=== PATIENT | female | born 1950 | race Caucasian/White ===

== ENCOUNTER 2019-01-08 01:02 | Emergency (ER) | payer MEDICARE ==
[~2019-01-08] VITALS: Ht 167.6 cm; Wt 78.5 kg
--- OUTSIDE RECORDS SUMMARY | ~2019-01-08 | XMS | Encounter Summary ---
Demographics + + + | Address | [address] | | | [place] [address] | + + + | Home Phone | | + + + | Preferred Language | Unknown | + + + | Marital Status | | + + + | Gnosticism Affiliation | NON | + + + | Race | White | + + + | Ethnic Group | Not or | + + + Author + + + | Author | [facility] | + + + | Organization | [facility] | + + + | Address | Unknown | + + + | Phone | Unavailable | + + + Support + + +---------+ + | Name | Relationship | Address | Phone | + + +---------+ + | Velma Trejo | ECON | Unknown | | + + +---------+ + Care Team Providers + +------+ + | Care Estimator Jewelry Name | Role | Phone | + +------+ + | Jaime Irizarry DO | PCP | Unavailable | + +------+ + Reason for Visit +--------+ + | Reason | Comments | +--------+ + | Other | care everywhere | +--------+ + Encounter Details +--------+ + + + + | Date | Type | Department | Care Team | Description | +--------+ + + + + | 09/26/ | Abstract | Rheumatology at | Unknown . | Other (care | | 2017 | | [facility] | | everywhere) | | | | [address] | | | | | | [place] Mailcode: | | | | | | [address] [facility] | | | | | | [place], | | | | | | [place] [address] | | | | | | [phone] | | | +--------+ + + + + Social History + +-------+ +--------+------+ | Tobacco Use | Types | Packs/Day | Years | Date | | | | | Used | | + +-------+ +--------+------+ | Never Smoker | | | | | + +-------+ +--------+------+ + +---+---+---+ | Smokeless Tobacco: | | | | | Never Used | | | | + +---+---+---+ + + +---------+ + | Alcohol Use | Drinks/Week | oz/Week | Comments | + + +---------+ + | No | | | | + + +---------+ + + + + | Sex Assigned at | Date Recorded | | | | + + + | Not on file | | + + + + + + + | Job Start Date | Occupation | Industry | + + + + | Not on file | Not on file | Not on file | + + + + + + + + | Travel History | Travel Start | Travel End | + + + + + + | No recent travel history available. | + + documented as of this encounter Plan of Treatment Not on filedocumented as of this encounter Visit Diagnoses Not on filedocumented in this encounter"
--- OUTSIDE RECORDS SUMMARY | ~2019-01-08 | XMS | Encounter Summary ---
Demographics + + + | Address | [address] | | | [place] [address] | + + + | Home Phone | | + + + | Preferred Language | Unknown | + + + | Marital Status | | + + + | Latter Day Affiliation | NON | + + + | Race | White | + + + | Ethnic Group | Not or | + + + Author + + + | Author | [facility] | + + + | Organization | [facility] | + + + | Address | Unknown | + + + | Phone | Unavailable | + + + Support + + +---------+ + | Name | Relationship | Address | Phone | + + +---------+ + | Velma Trejo | ECON | Unknown | | + + +---------+ + Care Team Providers + +------+ + | Care Certified Tumor Registrar Name | Role | Phone | + +------+ + PCP | Unavailable | + +------+ + Reason for Visit + + + | Reason | Comments | + + + | Anticoagulant | | | monitoring | | + + + Encounter Details +--------+---------+ + + + | Date | Type | Department | Care Team | Description | +--------+---------+ + + + | 04/09/ | Office | AntiCoagulation | Shelly Lucero, | Atrial Septal | | 2007 | Visit | Clinic [address] | SERVICE TECHNICIAN [address] | Aneurysm; Encounter | | | | [address] | [address] | for Long-Term | | | | Mailcode: [id number] | [place], [place] | (Current) Use of | | | | Outpatient Clinic | [address] | Anticoagulants | | | | [place] [address] | [phone] | | | | | [place], [place] | | | | | | [address] | | | | | | [phone] | | | +--------+---------+ + + + Social History + +-------+ +--------+------+ | Tobacco Use | Types | Packs/Day | Years | Date | | | | | Used | | + +-------+ +--------+------+ | Never Smoker | | | | | + +-------+ +--------+------+ + + +---------+ + | Alcohol Use [...] + + documented as of this encounter Last Filed Vital Signs + +---------+ + + | Vital Sign | Reading | Time Taken | Comments | + +---------+ + + | Blood Pressure | 90/62 | 04/09/2007 9:35 AM | | | | | PST | | + +---------+ + + | Pulse | - | - | | + +---------+ + + | Temperature | - | - | | + +---------+ + + | Respiratory Rate | - | - | | + +---------+ + + | Oxygen Saturation | - | - | | + +---------+ + + | Inhaled Oxygen | - | - | | | Concentration | | | | + +---------+ + + | Weight | - | - | | + +---------+ + + | Height | - | - | | + +---------+ + + | Body Mass Index | - | - | | + +---------+ + + documented in this encounter Patient Instructions Patient Instructions Mulu Pablo Np - 04/09/2007 10:05 AM PSTFormatting of this note migh t be different from the original. PROTHROMBIN TIME (INR), POC (no units) Date Value 04/09/07 1.9 DAILY WARFARIN DOSAGE INFORMATION: THEN: Sunday (mg): 5 Sunday (mg): 5 Sunday (mg): 5 (mg): 0 Sunday (mg): 0 Sunday (mg): 0 Sunday (mg): 0 Weekly Total (mg): 15 Your next appointment in the Anticoagulation Clinic is scheduled for 04/11/07. If you have any questions, medication changes, or bleeding, call the Anticoagulation Clinic at . For urgent problems after clinic hours, call your primary care provider . If your primary care provider is unavailable, call and ask the solution make up operator for the Water Main Installer Helper on-call. documented in this encounter Progress Notes Mulu Pablo Np - 04/09/2007 10:03 AM PSTMet with Sana Garcia in clinic for anticoagul ation monitoring. Anticoag focused exam assessed and negative except as noted on documentation flowsheet. PATIENT COUNSELING AND EDUCATION REGARDING: Importance of taking prescribed dosage Importance of regular monitoring Importance of notifying clinic of health status change(s) Medications to avoid (ASA, NSAIDs, OTCs, botanicals, acetaminophen precautions) Factors influencing, anticoagulation: (diet, ETOH, activity, health, OTCs, herbs) Reporting medication changes Reporting signs of bleeding Reporting weight changes ASSESSMENT AND PLAN: Subtherapeutic - needs dose adjustment: Weekly warfarin dose as ordered. Needs further ant icoag follow up: Next visit with lab test: in 2 days on 04/11/07 at 8:00am. documented in this encou nter Plan of Treatment Not on filedocumented as of this encounter Procedures + +--------+ + + + | Procedure Name | Priori | Date/Time | Associated Diagnosis | Comments | | | ty | | | | + +--------+ + + + | INR (PT), POC | Routin | 04/09/2007 | Atrial Septal | Results for this | | | e | 10:02 AM | Aneurysm Encounter | procedure are in the | | | | PST | for Long-Term | results section. | | | | | (Current) Use of | | | | | | Anticoagulants | | + +--------+ + + + documented in this encounter Results INR (PT), POC (04/09/2007 10:02 AM PST) + +-------+ + + + | Component | Value | Ref Range | Performed | Pathologist | | | | | At | Signature | + +-------+ + + + | PROTHROMBIN | 1.9 | | [facility] | | | TIME | | | OF CARE | | | (INR), POC | | | TESTS | | + +-------+ + + + + + | Specimen | + + | Blood | + + + + + + + | Performing | Address | City/State/Zipcode | Phone Number | | Organization | | | | + + + + + | [facility] | [address] | [place], [place] | | | [facility] | [address] | [address] | | | TESTS | | | | + + + + + | [facility] | [address] | [place], [place] | | | TESTS | [facility] | [address] | | + + + + + documented in this encounter Visit Diagnoses + + | Diagnosis | + + | Atrial septal aneurysm Aneurysm of heart (wall) | + + | intermediate (current) use of anticoagulants Long-term (current) use of anticoagulants | + + documented in this encounter"
--- OUTSIDE RECORDS SUMMARY | ~2019-01-08 | XMS | Encounter Summary ---
Demographics + + + | Address | [address] | | | [place] [address] | + + + | Home Phone | | + + + | Preferred Language | Unknown | + + + | Marital Status | | + + + | Adventist Affiliation | NON | + + + | Race | White | + + + | Ethnic Group | Not or | + + + Author + + + | Author | [facility] | + + + | Organization | [facility] | + + + | Address | Unknown | + + + | Phone | Unavailable | + + + Support + + +---------+ + | Name | Relationship | Address | Phone | + + +---------+ + | Velma Trejo | ECON | Unknown | | + + +---------+ + Care Team Providers + +------+ + | Care Street Cleaner Name | Role | Phone | + +------+ + | Jaime Irizarry DO | PCP | Unavailable | + +------+ + Encounter Details +--------+ + + + + | Date | Type | Department | Care Team | Description | +--------+ + + + + | 09/24/ | Abstract | Cardiology [facility] at | [place] | | | 2011 | | [facility] [address] | [address] | | | | | [place] Mailcode: [address] | Road [place], [place] | | | | | [facility] | [address] | | | | | and Healing, | | | | | | | | | | | | [place], [place] | | | | | | [address] | | | | | | [phone] | | | +--------+ + + + [...]
--- OUTSIDE RECORDS SUMMARY | ~2019-01-08 | XMS | Encounter Summary ---
Demographics + + + | Address | [address] | | | [place] [address] | + + + | Home Phone | | + + + | Preferred Language | Unknown | + + + | Marital Status | | + + + | Nondenominational Affiliation | NON | + + + | Race | White | + + + | Ethnic Group | Not or | + + + Author + + + | Author | [facility] | + + + | Organization | [facility] | + + + | Address | Unknown | + + + | Phone | Unavailable | + + + Support + + +---------+ + | Name | Relationship | Address | Phone | + + +---------+ + | Velma Trejo | ECON | Unknown | | + + +---------+ + Care Team Providers + +------+ + | Care Appliance Parts Counter Clerk Name | Role | Phone | + +------+ + | Henry Velazquez | PCP | Unavailable | + +------+ + Reason for Visit + + + | Reason | Comments | + + + | Return Patient | | + + + Encounter Details +--------+---------+ + + + | Date | Type | Department | Care Team | Description | +--------+---------+ + + + | 09/15/ | Office | Neurology at | Angelina Acosta MD | Restless Legs | | 2007 | Visit | [facility] & | [address] | Syndrome; | | | | Healing [address] | [place], [place] | Parkinsonism (HCC) | | | | [address] Mailcode: | [id number] | | | | | [facility] | [phone] | | | | | Health and Healing, | | | | | | [facility] | | | | | | [place], [place] | | | | | | [address] | | | | | | [phone] | | | +--------+---------+ + + + [...] this encounter Last Filed Vital Signs + + + + + | Vital Sign | Reading | Time Taken | Comments | + + + + + | Blood Pressure | 136/75 | 09/16/2007 2:27 PM | | | | | PDT | | + + + + + | Pulse | 70 | 09/16/2007 2:27 PM | | | | | PDT | | + + + + + | Temperature | - | - | | + + + + + | Respiratory Rate | - | - | | + + + + + | Oxygen Saturation | - | - | | + + + + + | Inhaled Oxygen | - | - | | | Concentration | | | | + + + + + | Weight | 88.9 kg (196 lb) | 09/16/2007 2:27 PM | | | | | PDT | | + + + + + | Height | 170.2 cm (5' 7") | 09/16/2007 2:27 PM | | | | | PDT | | + + + + + | Body Mass Index | 30.7 | 09/16/2007 2:27 PM | | | | | PDT | | + + + + + documented in this encounter Progress Notes Angelina Centeno - 09/15/2007 7:53 PM PDTCC: Tremor and parkinsonism. HPI: 57 yo RH woman with tremor in left hand and complaints of slowness in getting dressed. Has had some trouble with sciatica that is being treated primarily with physical therapy is primarily on the right leg feels like knife in the leg. Off all antipsych medications an d is psychiatrically stable, mood is good. States today that she has pains in her legs at n ight better with movements - take quinine and vicodin for it. Thinking is good. Speed is g ood, walking is normal. Balance is a little off she is doing some exercises for. Had a lef t putaminal hemorrhage found and an atrial septal aneurysm. She is on coumadin. She had so me problems with nausea on Sinemet. Stopped Seroquel around May of 2006 and stopped Jesenia lify for a couple months was back on then stopped again with no clear change in her symptoms . Has been off of antipsychotics for a few months and feels like she is having less ean onism and less tremor without change in medications. ROS: denies bowel problems denies urinary problems - has to push occasionally when urinates since on lyrica denies sleep problems Memory is almost normal denies hallucinations denies depression Swallowing well No tremors - except very occasional in the left hand Denies problems with sense of smell No real nausea Interval Medical History: Sciatica Started on lyrica for fibromyalgia From Previous Visit: PMHx: Stroke in 10/2006 - loss of vision in left lower quadrant bilaterally Bipolar disorder Fibromyalgia High Cholesterol High Blood Pressure Arthritis Head Aches PSHx: Hysterectomy and oopharectomy - 1998 - fibroids Tubulat ligation - 1972 Tonsilectomy - in high school Social History: The pt denies etoh, tob, illicit drug use. Was heavy drinker many years ago. 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 The pt's highest level of education is some college FamHx: Aunt had PD Father at 62 yo from alcoholic, malignant brain tumor, HTN, heart problems Mother had mental problems, patient did not know her well Siblings medical history is significant for metal problems also Children are healthy Medication: Current outpatient prescriptions : Amlodipine-Benazepril 5-20 mg Oral Capsule, take 1 capsu le by oral route once daily, Disp: , Rfl: Carbidopa 25 mg Oral Tablet, take one with each dose of sinemet, Disp: 90, Rfl: 11 Carbidopa-Levodopa (SINEMET) 25-100 mg Oral Tablet, gradually titirate up to 1 tablet by o ral route 3 times per day, Disp: 90, Rfl: 11 Clonazepam 0.5 mg Oral Tablet, take on tablet twice daily, Disp: , Rfl: hydrochlorothiazide 50 mg Oral Tablet, 1/2 tab po 1 times daily (25 mg dose), Disp: , Rfl: hydrocodone-acetaminophen (VICODIN) 5-500 mg Oral Tablet, 1 tab po at bedtime for restless/ cramping legs, Disp: , Rfl: KLOR-CON M20 ORAL, 1 tab daily, Disp: , Rfl: Metoprolol Succinate (TOPROL XL) 200 mg Oral Tablet Sustained Release 24 hr, take 1 tablet (200 mg) by oral route once daily, Disp: , Rfl: Niacin (Antihyperlipidemic) (NIASPAN) 500 mg Oral Tablet Sustained Release, take 1 tablet ( 500 mg) by oral route twice daily , Disp: , Rfl: PHENERGAN OR, 1 tab po 1/2 hour before morning meds., Disp: , Rfl: pregabalin (LYRICA) 150 mg Oral Capsule, take 3 pills, 2 times per day, Disp: , Rfl: quinine (QUALAQUIN) 324 mg Oral Capsule, 1 tab po nightly, Disp: , Rfl: Sennosides 8.6 mg Oral Tablet, take one tablet twice daily, Disp: , Rfl: warfarin 2 mg Oral Tablet, 2 tabs po daily (4 mg total), Disp: , Rfl: PE: Vitals: BP 136/75, Pulse 70, Ht 170.2 cm (5' 7")( < 3 %ile), Wt 88.905 kg (196 lbs)( < 3 %ile). GA: awake, alert, very masked facies and slow, NAD. MS: answers questions appropriately, draws clock well, speech is a little slow and slightly monotone CN: face symmetric, mildly masked face Motor: 5/5 throughout,normal tone Reflexes: 2+ throughout, Coor: KRISTI are normal Gait: mild reduced arm swing on the left and slight tremor of left hand when ambulates A/P: 57 yo women with parkinsonism. Differential is drug induced versus idiopathic Ean on's Disease. She feels she is much better recently since being off her antipsychotics for a couple of months. 1. Check iron and ferritin because of restless leg. 2. Taper off Sinemet gradually, restart if symptoms worsen. 3. F/u in 3 months by phone sooner if needed. Over 20 minutes was spent with the patient and more then half the time was in counseling an d discussion about her medical diagnosis and treatment. documented in this encou nter Plan of Treatment Not on filedocumented as of this encounter Results IRON AND TIBC, SERUM (09/16/2007 3:27 PM PDT) + +--------+ + + + | Component | Value | Ref Range | Performed | Pathologist | | | | | At | Signature | + +--------+ + + + | IRON SERUM | 46 | 40 - 150 ug/dL | | | + +--------+ + + + | IRON BIND | 280 | 225 - 410 ug/dL | | | | CAP SERUM | | | | | + +--------+ + + + | % | 16 (L) | 20 - 50 % | | | | SATURATION | | | | | | TRANSFERRIN | | | | | | , SERUM | | | | | + +--------+ + + + + + | Specimen | + + | Blood - Blood | + + + + + | Narrative | Performed At | + + + | Iron and TIBC, Serum Test performed by [facility] | | | [facility]. | | + + + + + + + + | Performing | Address | City/State/Zipcode | Phone Number | | Organization | | | | + + + + + | [facility] | [address] | [place] [address] | | | LABORATORY | | | | + + + + + FERRITIN, SERUM (09/16/2007 3:27 PM PDT) + +-------+ + + + | Component | Value | Ref Range | Performed | Pathologist | | | | | At | Signature | + +-------+ + + + | FERRITIN | 121 | 11 - 307 ng/mL | | | + +-------+ + + + + + | Specimen | + + | Blood - Blood | + + + + + | Narrative | Performed At | + + + | Reference Range change effective 01/21/07 | | | [facility] | | | [facility] [address] | | | [place] [address] | | + + + + + + + + | Performing | Address | City/State/Zipcode | Phone Number | | Organization | | | | + + + + + | [facility] | [address] | [place] [address] | | | LABORATORY | | | | + + + + + documented in this encounter Visit Diagnoses + + | Diagnosis | + + | Restless legs syndrome Restless legs syndrome (RLS) | + + | Parkinsonism (HCC) Paralysis agitans | + + documented in this encounter
--- OUTSIDE RECORDS SUMMARY | ~2019-01-08 | XMS | Encounter Summary ---
Demographics + + + | Address | [address] | | | [place] [address] | + + + | Home Phone | | + + + | Preferred Language | Unknown | + + + | Marital Status | | + + + | Church Affiliation | NON | + + + | Race | White | + + + | Ethnic Group | Not or | + + + Author + + + | Author | [facility] | + + + | Organization | [facility] | + + + | Address | Unknown | + + + | Phone | Unavailable | + + + Support + + +---------+ + | Name | Relationship | Address | Phone | + + +---------+ + | Velma Trejo | ECON | Unknown | | + + +---------+ + Care Team Providers + +------+ + | Care Script Reader Name | Role | Phone | + +------+ + | Jaime Irizarry DO | PCP | Unavailable | + +------+ + Encounter Details +--------+ + + + + | Date | Type | Department | Care Team | Description | +--------+ + + + + | 04/01/ | Results | LAB REFERRED TESTS | Other, Faculty | | | 2006 | Only | [address] [facility] | [phone] | | | | | [address] | | | | | | [place], [place] | | | | | | [address] | | | +--------+ + + + + Social History + +-------+ +--------+------+ | Tobacco Use | Types | Packs/Day | Years | Date | | | | | Used | | + +-------+ +--------+------+ | Never Assessed | | | | | + +-------+ +--------+------+ + + + | Sex Assigned at [...] | + +--------+ + + + | EJECTION FRACTION | Routin | 04/01/2007 | | Results for this | | | e | 2:13 PM | | procedure are in the | | | | PST | | results section. | + +--------+ + + + documented in this encounter Results EJECTION FRACTION (04/01/2007 2:13 PM PST) + + + + + + | Component | Value | Ref Range | Performed | Pathologist | | | | | At | Signature | + + + + + + | EJECTION | 60 - 65%Comment: EF | | [facility] | | | FRACTION | Recorded from | | OF | | | | Transthoracic | | CARDIOLOGY | | | | Echocardiogram | | | | + + + + + + + + | Specimen | + + | | + + + + + + + | Performing | Address | City/State/Zipcode | Phone Number | | Organization | | | | + + + + + | [facility] | [address] | [place], [place] | | | CARDIOLOGY | [address] | [address] | | + + + + + | [facility] | [address] | [place], [place] | | | CARDIOLOGY | [address] [facility] | [address] | | + + + + + documented in this encounter Visit Diagnoses Not on filedocumented in this encounter"
--- OUTSIDE RECORDS SUMMARY | ~2019-01-08 | XMS | Encounter Summary ---
Demographics + + + | Address | [address] | | | [place] [address] | + + + | Home Phone | | + + + | Preferred Language | Unknown | + + + | Marital Status | | + + + | Mu-Ism Affiliation | NON | + + + | Race | White | + + + | Ethnic Group | Not or | + + + Author + + + | Author | [facility] | + + + | Organization | [facility] | + + + | Address | Unknown | + + + | Phone | Unavailable | + + + Support + + +---------+ + | Name | Relationship | Address | Phone | + + +---------+ + | Velma Trejo | ECON | Unknown | | + + +---------+ + Care Team Providers + +------+ + | Care Street Light Cleaner Name | Role | Phone | + +------+ + | Jaime Irizarry DO | PCP | Unavailable | + +------+ + Reason for Referral Consultation (Routine) +--------+--------+ + + + + | Status | Reason | Specialty | Diagnoses / | Referred By | Referred To | | | | | Procedures | Contact | Contact | +--------+--------+ + + + + | Closed | | Neurology | Diagnoses | Car [facility] | Colin Stroke | | | | | PFO (patent | [address] | | | | | foramen | [address] | Fritz Peng | | | | | isra) | Mailcode: | [address] | | | | | Procedures | [facility] | Mailcode: | | | | | CONSULT TO | for Health | [id number] | | | | | NEUROLOGY | and Healing, | [address] | | | | | | [address], | Research | | | | | | 9th Floor | [address] | | | | | | [place], [place] | floor | | | | | | [address] | [place], [place] | | | | | | Phone: | [phone] | | | | | | [phone] | Phone: | | | | | | Fax: | [phone] | | | | | | [phone] | Fax: | | | | | | | [phone] | +--------+--------+ + + + + Reason for Visit Consultation (Routine) +--------+--------+ + + + + | Status | Reason | Specialty | Diagnoses / | Referred By | Referred To | | | | | Procedures | Contact | Contact | +--------+--------+ + + + + | Closed | | Cardiology | Diagnoses | No | [facility] | | | | | ASD (atrial | Referring | [address] | | | | | septal | Provider Per | [address] | | | | | defect) | Patient NO | Mailcode: | | | | | Procedures | REFERRING | [facility] | | | | | CONSULT TO | PROVIDER PER | for Health | | | | | CARDIOLOGY | PT | and Healing, | | | | | | | [address], | | | | | | | 9th Floor | | | | | | | [place], [place] | | | | | | | [address] | | | | | | | Phone: | | | | | | | [phone] | | | | | | | Fax: | | | | | | | [phone] | +--------+--------+ + + + + Encounter Details +--------+---------+ + + + | Date | Type | Department | Care Team | Description | +--------+---------+ + + + | 11/06/ | Office | Cardiology [facility] at | [address] | PFO (patent foramen | | 2011 | Visit | [facility] [address] | [facility] | isra) (Primary Dx) | | | | Ave Mailcode: [facility] | Road [place], [place] | | | | | [facility] | [address] | | | | | and Healing, | | | | | | | | | | | | [place], [place] | | | | | | [address] | | | | | | [phone] | | | +--------+---------+ + + + [...] + + + | Blood Pressure | 130/80 | 11/07/2011 10:20 AM | | | | | PDT | | + + + + + | Pulse | 57 | 11/07/2011 10:20 AM | | | | | PDT | | + + + + + | Temperature | 36.4 C (97.5 F) | 11/07/2011 10:20 AM | | | | | PDT | | + + + + + | Respiratory Rate | - | - | | + + + + + | Oxygen Saturation | 97% | 11/07/2011 10:20 AM | | | | | PDT | | + + + + + | Inhaled Oxygen | - | - | | | Concentration | | | | + + + + + | Weight | 81 kg (178 lb 9.6 | 11/07/2011 10:20 AM | | | | oz) | PDT | | + + + + + | Height | 168.3 cm (5' 6.25") | 11/07/2011 10:20 AM | | | | | PDT | | + + + + + | Body Mass Index | 28.61 | 11/07/2011 10:20 AM | | | | | PDT | | + + + + + documented in this encounter Patient Instructions Patient Instructions Trini Mcdowell MD - 11/07/2011 11:11 AM PDTIt was nice to meet you today in clinic. Here are the recommendations that we discussed: 1. Recommend that you continue the warfarin. 2. Consider seeing a neurologist to discuss treatment options in regards to anticoagulatio n. 3. Return to clinic as needed. 1 1:13 AM PDT documented in this encounter Progress Notes Trini Mcdowell MD - 11/07/2011 10:29 AM PDTFormatting of this note might be different fr om the original. INITIAL ADULT CONGENITAL CARDIOLOGY CONSULT NOTE Author: TRINI MCDOWELL MD Attending Physician: Tom Valerio MD PCP: Jaime Irizarry DO HPI: Sana Garcia is a 61 y.o. woman with a PMH of Fibromyalgia, Migraines, Stroke, HTN, HLD, who presents with Here for evaluation of hole in her heart. She would like to get off [employer] franck if there is another way. First stroke was in 10/2006. Symptoms at the time vision davis ges, slurred speech. Residual deficits vision problems. She has a larger blind spot. No s peech problems. No weakness. She then was on aggrenox and represented in 03/2007 with facia l droop and found to have PFO/ASD. She was switched to warfarin at that time. No more stro kes since then. Warfarin since then. Tolerated the warfarin ok. No major bleeding or clotting events since being on the warfari n. No chest pain, SOB, syncope, lightheadedness, orthopnea, PND, palpitations, VANESSA, weight gai n. Exercises 2-3 times per week, workouts with free weights and walking. No chest pain or SOB with that. No changes in exercise tolerance. Improving her strength and tolerance. Past Medical History Diagnosis Date Arthropathy, unspecified, site unspecified Other persistent mental disorders due to conditions classified elsewhere Depressive disorder, not elsewhere classified Headache Pure hypercholesterolemia Unspecified essential hypertension Symptomatic menopausal or female climacteric states Other convulsions Acute, but ill-defined, cerebrovascular disease Anxiety PD (Parkinson's disease) Hypokinesia Review of Systems: All other ROS negative except as mentioned in HPI. Current Outpatient Prescriptions on File Prior to Visit Medication Sig Dispense Refill Amlodipine-Benazepril 5-20 mg Oral Capsule take 1 capsule by oral route once daily Metoprolol Succinate (TOPROL XL) 200 mg Oral Tablet Sustained Release 24 hr take 1 tabl et (200 mg) by oral route once daily Niacin (Antihyperlipidemic) (NIASPAN) 500 mg Oral Tablet Sustained Release take 1 table t (500 mg) by oral route twice daily Allergies Allergen Reactions Demerol (Meperidine (Pf)) Codeine Med list and allergies reviewed with patient and/or family. Social Hx: History Social History Marital Status: Spouse Name: N/A Number of Children: N/A Years of Education: N/A Social History Main Topics Smoking status: Never Smoker Smokeless tobacco: Never Used Alcohol Use: No Drug Use: No Sexually Active: Not on file Other Topics Concern Not on file Social History Narrative No narrative on file Family Hx: Family History Problem Relation Stroke Father Cancer Father brain, age 62 Coronary Artery Disease Father CABG Cancer Aunt brain Coronary Artery Disease Aunt [place] in her 80s Physical Exam: BP 130/80 | Pulse 57 | Temp (Src) 36.4 C (97.5 F) (Oral) | Ht 1.683 m (5' 6.25") | Wt 8 1.012 kg (178 lb 9.6 oz) | SpO2 97% | BMI 28.61 kg/(m^2) General Appearance: alert, oriented X 3, no distress HEENT: PERRLA, EOMI, sclera anicteric, MM moist Neck: JVP not elevated, Respiratory: CTA bilateral Cardiovascular: regular rate & rhythm with 1/6 systolic murmur over RUSB, no r/g Gastrointestinal: soft, nt, nd, bs +, Extremities: wwp, negative edema, negative clubbing, distal pulses intact Musculoskeletal: RIDLEY, Skin: negative rash, negative erythema Neurologic: grossly intact, vision deficits. Data: Lab Results Component Value Date NA 139 04/02/2007 K 3.6 04/02/2007 CL 111 04/02/2007 BICARB 24 04/02/2007 BUN 10 04/02/2007 CR 1.0 04/02/2007 GLU 104 04/02/2007 CA 9.5 04/02/2007 Lab Results Component Value Date WBC 8.0 04/02/2007 HB 11.5 04/02/2007 HCT 32.3 04/02/2007 PLT 308 04/02/2007 MCV 92.0 04/02/2007 RDW 13.0 04/02/2007 CXR: CXR * 03/31/2007 Value: Radiologist 1: TYESHA NIETO M.D.-Radiologist 2: ALEKS CARMEN M.D. EXAM: AP chest HISTORY: Evaluate for pneumonia COMPARISON: None FINDINGS: There is minimal lef t basilar atelectasis, otherwise the lungs are clear. No pneumothorax, pulmonary edema, or pleural effusion. The cardiac silhouette is within normal limits. The osseous structures a re intact. IMPRESSION: Minimal left lower lung zone atelectasis, otherwise clear lungs. Echocardiogram Final Impressions: 1. The left ventricular cavity size is normal. 2. The LV systolic function is normal. 3. With IV saline contrast injection, a small right to left shunt is present at baseline th at increases significantly with a Valsalva maneuver consistent with a PFO or small ASD. Cardiac Rhythm: Normal sinus rhythm. Left Ventricle: The left ventricular cavity size is normal. Visually estimated left ventric ular ejection fraction is 60 - 65%. The LV systolic function is normal. Atria:The left and right atria are normal in size. Right Ventricle:Right ventricular size, thickness and function are normal. Aortic Valve: The aortic valve is mildly sclerotic. Mitral Valve: The mitral valve is structurally normal. EC - NSR, LVH, nonspecific ST changes Assessment and Plan: Sana Garcia is a 61 y.o. woman with a PMH of Fibromyalgia, Migraines, Stroke, HTN, HLD, who presents for evaluation of her PFO/ASD. She is here because she wants to try to come o ff the warfarin. Per current data, there is no data to support that closing her PFO/ASD wou ld decrease the risk of stroke or allow her to stop the warfarin. The etiology of the strok e is unclear so it may be unrelated. However she did have a second event on aggrenox so wou ld recommend continuing warfarin given probable failure on aggrenox. She also does not have any evidence of right heart enlargement or right heart failure to suggest a hemodynamically significant shunt. At this time would recommend continuing warfarin and we would not recom mend closing her PFO/ASD at this time. -neurology referral for discussion of anticoagulation management -continue warfarin for now This patient was staffed with my attending Dr. Valerio, who agrees with the above assessmen t and plan. Trini Mcdowell MD [place] [place] [address] [id number] Cardiology Attending Staff I saw patient with Dr. Hernandes and also Mrs Garcia's daughter, Velma. Her question is whe ther closing her ASD/PFO would enable her to stop taking the warfarin. She is concerned abo ut bleeding with trauma, and also she had lap cholecystectomy recently and her physician for got to stop the warfarin so she urgently received clotting factors. This frightened her. S he has not had any bleeding with the warfarin and her INR is very stable. I told her that I did not think closing the ASD/PFO would allow her to stop the warfarin as there is no evide nce that closing the PFO reduces her risk of stroke. There is no hemodynamic reason to cons ider closing the PFO (no right heart enlargement). As to whether warfarin is an appropriate medication for her at this time, I would defer to neurology (stroke) for their opinion. It seems reasonable to me, but I would defer to their expertise. We discussed alternative therapy with dabigatran, but that doesn't seem to prov ananth any advantage and has the disadvantage of hot being able to reverse quickly. She is comfortable with our advice and will set up an appointment to see neurology for thei r recommendation about whether it is appropriate to continue the warfarin. TOM VALERIO MD CARDIOLOGY - [facility] [address] Mailcode: [address] [facility], [address] [facility] [id number] documented in this en counter Plan of Treatment Not on filedocumented as of this encounter Visit Diagnoses + + | Diagnosis | + + | PFO (patent foramen ovale) - Primary Ostium secundum type atrial septal defect | + + documented in this encounter
--- OUTSIDE RECORDS SUMMARY | ~2019-01-08 | XMS | Encounter Summary ---
Demographics + + + | Address | [address] | | | [place] [address] | + + + | Home Phone | | + + + | Preferred Language | Unknown | + + + | Marital Status | | + + + | Moravian Affiliation | NON | + + + | Race | White | + + + | Ethnic Group | Not or | + + + Author + + + | Author | [facility] | + + + | Organization | [facility] | + + + | Address | Unknown | + + + | Phone | Unavailable | + + + Support + + +---------+ + | Name | Relationship | Address | Phone | + + +---------+ + | Velma Trejo | ECON | Unknown | | + + +---------+ + Care Team Providers + +------+ + | Care Dietitian Therapeutic Name | Role | Phone | + +------+ + | Jaime Irizarry DO | PCP | Unavailable | + +------+ + Encounter Details +--------+ + + + + | Date | Type | Department | Care Team | Description | +--------+ + + + + | 03/31/ | Hospital | Registration 3181 | Jomar Rodriguez, | | | 2006 | Activity | [address] | [address] | | | | | [place] Mailcode: [id number] | [place], [place] | | | | | [place], [place] | [address] | | | | | [address] | [phone] | | | | | [phone] | | | +--------+ + + + [...] as of this encounter Plan of Treatment + +---------+--------+ + + | Name | Type | Priori | Associated Diagnoses | Date/Time | | | | ty | | | + +---------+--------+ + + | MRA NECK WO CONTRAST | Imaging | Priori | | 03/31/2007 10:32 PM | | | | ty | | PST | + +---------+--------+ + + | TRANSTHORACIC | ECG | Routin | | 04/01/2007 8:34 AM | | ECHOCARDIOGRAM, | | e | | PST | | ADULT | | | | | + +---------+--------+ + + documented as of this encounter Procedures + +--------+ + + + | Procedure Name | Priori | Date/Time | Associated Diagnosis | Comments | | | ty | | | | + +--------+ + + + | BASIC METABOLIC SET | Routin | 04/02/2007 | | Results for this | | (NA, K, CL, TCO2, | e | 8:13 AM | | procedure are in the | | BUN, CR, GLU, CA) | | PST | | results section. | + +--------+ + + + | CBC ONLY | Routin | 04/02/2007 | | Results for this | | | e | 8:13 AM | | procedure are in the | | | | PST | | results section. | + +--------+ + + + | FREE T4 | Routin | 04/02/2007 | | Results for this | | | e | 8:13 AM | | procedure are in the | | | | PST | | results section. | + +--------+ + + + | MRA BRAIN WO | Priori | 04/01/2007 | | Results for this | | CONTRAST | ty | 9:52 PM | | procedure are in the | | | | PST | | results section. | + +--------+ + + + | MRI BRAIN WO | Priori | 04/01/2007 | | Results for this | | CONTRAST | ty | 9:52 PM | | procedure are in the | | | | PST | | results section. | + +--------+ + + + | MRA NECK WWO | Priori | 04/01/2007 | | Results for this | | CONTRAST | ty | 9:51 PM | | procedure are in the | | | | PST | | results section. | + +--------+ + + + | LIVER SET | Routin | 04/01/2007 | | Results for this | | (AST,ALT,BILI | e | 7:00 AM | | procedure are in the | | TOTAL,BILI | | PST | | results section. | | DIRECT,ALK | | | | | | PHOS,ALB,PROT TOTAL) | | | | | + +--------+ + + + | RENAL FUNCTION SET | Routin | 04/01/2007 | | Results for this | | (NA,K,CL,CO2,BUN,CRE | e | 7:00 AM | | procedure are in the | | AT,GLUC,CA,PHOS,ALB | | PST | | results section. | | ) | | | | | + +--------+ + + + | CBC ONLY | Routin | 04/01/2007 | | Results for this | | | e | 7:00 AM | | procedure are in the | | | | PST | | results section. | + +--------+ + + + | TSH | Routin | 04/01/2007 | | Results for this | | | e | 7:00 AM | | procedure are in the | | | | PST | | results section. | + +--------+ + + + | MAGNESIUM, PLASMA | Routin | 04/01/2007 | | Results for this | | | e | 7:00 AM | | procedure are in the | | | | PST | | results section. | + +--------+ + + + | BENITO JEAN ONLY | Routin | 03/31/2007 | | Results for this | | | e | 10:45 PM | | procedure are in the | | | | PST | | results section. | + +--------+ + + + | URINE, MICROSCOPIC | Routin | 03/31/2007 | | Results for this | | EXAM | e | 10:45 PM | | procedure are in the | | | | PST | | results section. | + +--------+ + + + | RENAL FUNCTION SET | Routin | 03/31/2007 | | Results for this | | (NA,K,CL,CO2,BUN,CRE | e | 9:40 PM | | procedure are in the | | AT,GLUC,CA,PHOS,ALB | | PST | | results section. | | ) | | | | | + +--------+ + + + | CBC ONLY | Routin | 03/31/2007 | | Results for this | | | e | 9:40 PM | | procedure are in the | | | | PST | | results section. | + +--------+ + + + | MAGNESIUM, PLASMA | Routin | 03/31/2007 | | Results for this | | | e | 9:40 PM | | procedure are in the | | | | PST | | results section. | + +--------+ + + + | LITHIUM, SERUM | Routin | 03/31/2007 | | Results for this | | | e | 9:40 PM | | procedure are in the | | | | PST | | results section. | + +--------+ + + + | X-RAY CHEST 1 VIEW | Urgent | 03/31/2007 | | Results for this | | | | 9:35 PM | | procedure are in the | | | | PST | | results section. | + +--------+ + + + | CULTURE, URINE BACTI | Routin | 03/31/2007 | | Results for this | | | e | 2:44 PM | | procedure are in the | | | | PST | | results section. | + +--------+ + + + | TROPONIN I, PLASMA | Urgent | 03/31/2007 | | Results for this | | | | 1:54 PM | | procedure are in the | | | | PST | | results section. | + +--------+ + + + | COMPLETE METABOLIC | Urgent | 03/31/2007 | | Results for this | | SET | | 1:54 PM | | procedure are in the | | (NA,K,CL,CO2,BUN,CRE | | PST | | results section. | | AT,GLUC,CA,AST,ALT,B | | | | | | VICKIE TOTAL,ALK | | | | | | PHOS,ALB,PROT TOTAL) | | | | | + +--------+ + + + | UA, DIPSTICK ONLY | Urgent | 03/31/2007 | | Results for this | | | | 1:54 PM | | procedure are in the | | | | PST | | results section. | + +--------+ + + + | URINE, MICROSCOPIC | Urgent | 03/31/2007 | | Results for this | | EXAM | | 1:54 PM | | procedure are in the | | | | PST | | results section. | + +--------+ + + + | CBC ONLY | Urgent | 03/31/2007 | | Results for this | | | | 1:54 PM | | procedure are in the | | | | PST | | results section. | + +--------+ + + + | COAGULOPATHY PANEL | Urgent | 03/31/2007 | | Results for this | | (INR,APTT,FIBRINOGEN | | 1:54 PM | | procedure are in the | | ) | | PST | | results section. | + +--------+ + + + | LITHIUM, SERUM | Urgent | 03/31/2007 | | Results for this | | | | 1:54 PM | | procedure are in the | | | | PST | | results section. | + +--------+ + + + | 12 LEAD ECG | Routin | 03/31/2007 | | Results for this | | | e | 1:33 PM | | procedure are in the | | | | PST | | results section. | + +--------+ + + + | CT HEAD WO CONTRAST | Urgent | 03/31/2007 | | Results for this | | | | 1:20 PM | | procedure are in the | | | | PST | | results section. | + +--------+ + + + documented in this encounter Results CBC ONLY WITH PLATELET (04/02/2007 8:13 AM PST) + + + + + + | Component | Value | Ref Range | Performed | Pathologist | | | | | At | Signature | + + + + + + | WHITE CELL | 8.0 | 4.4 - 11.0 K/cu | [facility] | | | COUNT | | mm | DEPARTMENT | | | | | | OF | | | | | | PATHOLOGY | | + + + + + + | RED CELL | 3.51 (L) | 4.00 - 5.20 | [facility] | | | COUNT | | M/cu mm | DEPARTMENT | | | | | | OF | | | | | | PATHOLOGY | | + + + + + + | HEMOGLOBIN | 11.5 (L) | 12.0 - 16.0 | [facility] | | | | | g/dL | DEPARTMENT | | | | | | OF | | | | | | PATHOLOGY | | + + + + + + | HEMATOCRIT | 32.3 (L) | 36.0 - 46.0 % | [facility] | | | | | | DEPARTMENT | | | | | | OF | | | | | | PATHOLOGY | | + + + + + + | MCV | 92.0 | 80.0 - 96.0 fL | [facility] | | | | | | DEPARTMENT | | | | | | OF | | | | | | PATHOLOGY | | + + + + + + | MCHC | 35.5 | 33.4 - 35.5 | [facility] | | | | | g/dL | DEPARTMENT | | | | | | OF | | | | | | PATHOLOGY | | + + + + + + | RDW | 13.0 | 11.5 - 15.0 % | [facility] | | | | | | DEPARTMENT | | | | | | OF | | | | | | PATHOLOGY | | + + + + + + | PLATELET | 308 | 150 - 400 K/cu | [facility] | | | COUNT | | mm | DEPARTMENT | | | | | | OF | | | | | | PATHOLOGY | | + + + + + + + + | Specimen | + + | | + + + + + + + | Performing | Address | City/State/Zipcode | Phone Number | | Organization | | | | + + + + + | [facility] | [address] | [place] [address] | | | PATHOLOGY | [address] | | | + + + + + | [facility] | [address] | [place] [address] | | | PATHOLOGY | [address] | | | + + + + + BASIC METABOLIC SET (04/02/2007 8:13 AM PST) + +---------+ + + + | Component | Value | Ref Range | Performed | Pathologist | | | | | At | Signature | + +---------+ + + + | GLUCOSE, | 104 (H) | 60 - 99 mg/dL | [facility] | | | PLASMA | | | DEPARTMENT | | | (LAB) | | | OF | | | | | | PATHOLOGY | | + +---------+ + + + | BUN, PLASMA | 10 | 6 - 20 mg/dL | [facility] | | | (LAB) | | | DEPARTMENT | | | | | | OF | | | | | | PATHOLOGY | | + +---------+ + + + | CREATININE | 1.0 | 0.6 - 1.1 mg/dL | [facility] | | | PLASMA | | | DEPARTMENT | | | (LAB) | | | OF | | | | | | PATHOLOGY | | + +---------+ + + + | SODIUM, | 139 | 136 - 145 | [facility] | | | PLASMA | | mmol/L | DEPARTMENT | | | (LAB) | | | OF | | | | | | PATHOLOGY | | + +---------+ + + + | POTASSIUM, | 3.6 | 3.5 - 5.1 | [facility] | | | PLASMA | | mmol/L | DEPARTMENT | | | (LAB) | | | OF | | | | | | PATHOLOGY | | + +---------+ + + + | CHLORIDE, | 111 (H) | 98 - 107 mmol/L | [facility] | | | PLASMA | | | DEPARTMENT | | | (LAB) | | | OF | | | | | | PATHOLOGY | | + +---------+ + + + | TOTAL CO2, | 24 | 23 - 29 mmol/L | [facility] | | | PLASMA | | | DEPARTMENT | | | (LAB) | | | OF | | | | | | PATHOLOGY | | + +---------+ + + + | CALCIUM, | 9.5 | 8.5 - 10.5 | [facility] | | | PLASMA | | mg/dL | DEPARTMENT | | | (LAB) | | | OF | | | | | | PATHOLOGY | | + +---------+ + + + + + | Specimen | + + | | + + + + + + + | Performing | Address | City/State/Zipcode | Phone Number | | Organization | | | | + + + + + | [facility] | [address] | [place] [address] | | | PATHOLOGY | [address] | | | + + + + + | [facility] | [address] [place] [address] | [place] [address] | | | PATHOLOGY | [address] | | | + + + + + FREE T4, SERUM (04/02/2007 8:13 AM PST) + +-------+ + + + | Component | Value | Ref Range | Performed | Pathologist | | | | | At | Signature | + +-------+ + + + | FREE T4, | 0.6 | 0.6 - 1.6 ng/dL | | | | SERUM | | | | | + +-------+ + + + + + | Specimen | + + | | + + + + + | Narrative | Performed At | + + + | Reference Range change | | | effective 01/21/07 [facility] ([facility]) | | | [facility] [place] [address] | | | [place] [address] | | + + + + + + + + | Performing | Address | City/State/Zipcode | Phone Number | | Organization | | | | + + + + + | [facility] | [address] | [place] [address] | | | LABORATORY | | | | + + + + + MRA HEAD WO CONT (04/01/2007 9:52 PM PST) + + + + + + | Component | Value | Ref Range | Performed | Pathologist | | | | | At | Signature | + + + + + + | MR MRA | Radiologist 1: JAYCE, | | | | | BRAIN WO | ANN Vasquez, | | | | | CONT | M.D.-Radiologist 2: | | | | | | Damaso NIELSEN, | | | | | | M.D.EXAM: MRI brain | | | | | | without contrastMRA | | | | | | brain without contrast + | | | | | | MIP imagesMRA and neck | | | | | | with contrast plus | | | | | | reconstructed and MIP | | | | | | imagesHISTORY: Rule out | | | | | | strokeTECHNIQUE: Imag | | | | | | es obtained on 3.0 Rachelle | | | | | | magnet through the | | | | | | brainSagittal T1 | | | | | | weighted image.Axial T1, | | | | | | PD, and T2 weighted | | | | | | images.Coronal | | | | | | FLAIRAxial DWIAxial | | | | | | GREMRA of the | | | | | | intracranial vessels | | | | | | with 3D time of flight | | | | | | images andMIP | | | | | | reconstructed | | | | | | images.Contrast enhanced | | | | | | MRA of the neck vessels | | | | | | with reconstructed | | | | | | andMIP | | | | | | images.Appropriate | | | | | | weight based dose of | | | | | | Omniscan was given | | | | | | intravenouslyfor | | | | | | contrast | | | | | | studies.COMPARISON: | | | | | | Prior head | | | | | | CTFINDINGS:Brain: Bra | | | | | | in parenchyma | | | | | | demonstrates mild | | | | | | periventricular | | | | | | [id number] | | | | | | suggestive of chronic | | | | | | small vessel | | | | | | disease. Apunctate | | | | | | area of blooming is seen | | | | | | in the left putamen, | | | | | | suggestiveof prior | | | | | | microbleed. No | | | | | | evidence of acute | | | | | | ischemia | | | | | | isdemonstrated. No | | | | | | midline shift, or mass | | | | | | effect is | | | | | | demonstrated.No abnormal | | | | | | extra-axial fluid | | | | | | collections are | | | | | | demonstrated. Thebasi | | | | | | lar cisterns appear | | | | | | patent.MRA | | | | | | intracranial: No left | | | | | | A1 segment is | | | | | | identified. The left | | | | | | [id number] is supplied by | | | | | | the A1 segment of the | | | | | | right anteriorcerebral | | | | | | artery and a patent | | | | | | anterior communicating | | | | | | artery. Thebasilarart | | | | | | chang supplies both | | | | | | posterior cerebral | | | | | | arteries. There | | | | | | isminimal narrowing in | | | | | | the right M1 segment and | | | | | | there is alsonarrowing | | | | | | in the right LEADED GLASS INSTALLER distal | | | | | | to the P1 segment. No | | | | | | otherareas of stenosis | | | | | | aredemonstrated. No | | | | | | occlusion is | | | | | | demonstrated at the | | | | | | level of thecircle of | | | | | | Amin.MRA neck: Focal | | | | | | narrowing is present at | | | | | | the origin of | | | | | | thebilateral vertebral | | | | | | arteries. Left | | | | | | vertebral artery is | | | | | | dominant.Minimal | | | | | | irregularity is seen at | | | | | | the bilateral carotid | | | | | | bulb region,but noflow | | | | | | limiting lesion is | | | | | | identified in the | | | | | | carotid | | | | | | arteries.---IMPRESSION:N | | | | | | o evidence of acute | | | | | | ischemia demonstrated on | | | | | | today's study.Narrowing | | | | | | in the right M1 (MCA) | | | | | | and right LEADED GLASS INSTALLER arteries, | | | | | | as above.Narrowing at | | | | | | the bilateral vertebral | | | | | | artery origins. | | | | + + + + + + + + | Specimen | + + | | + + + +---------+ + + | Performing | Address | City/State/Zipcode | Phone Number | | Organization | | | | + +---------+ + + | [facility] DEPARTMENT OF | | | | | RADIOLOGY | | | | + +---------+ + + MRI BRAIN WO CONTRAST (04/01/2007 9:52 PM PST) + + + + + + | Component | Value | Ref Range | Performed | Pathologist | | | | | At | Signature | + + + + + + | MR BRAIN WO | Radiologist 1: JAYCE, | | | | | CONTRAST | ANN Vasquez | | | | | | M.D.-Radiologist 2: | | | | | | Damaso NIELSEN, | | | | | | M.D.EXAM: MRI brain | | | | | | without contrastMRA | | | | | | brain without contrast + | | | | | | MIP imagesMRA and neck | | | | | | with contrast plus | | | | | | reconstructed and MIP | | | | | | imagesHISTORY: Rule out | | | | | | strokeTECHNIQUE: Imag | | | | | | es obtained on 3.0 Rachelle | | | | | | magnet through the | | | | | | brainSagittal T1 | | | | | | weighted image.Axial T1, | | | | | | PD, and T2 weighted | | | | | | images.Coronal | | | | | | FLAIRAxial DWIAxial | | | | | | GREMRA of the | | | | | | intracranial vessels | | | | | | with 3D time of flight | | | | | | images andMIP | | | | | | reconstructed | | | | | | images.Contrast enhanced | | | | | | MRA of the neck vessels | | | | | | with reconstructed | | | | | | andMIP | | | | | | images.Appropriate | | | | | | weight based dose of | | | | | | Omniscan was given | | | | | | intravenouslyfor | | | | | | contrast | | | | | | studies.COMPARISON: | | | | | | Prior head | | | | | | CTFINDINGS:Brain: Bra | | | | | | in parenchyma | | | | | | demonstrates mild | | | | | | periventricular | | | | | | [id number] | | | | | | suggestive of chronic | | | | | | small vessel | | | | | | disease. Apunctate | | | | | | area of blooming is seen | | | | | | in the left putamen, | | | | | | suggestiveof prior | | | | | | microbleed. No | | | | | | evidence of acute | | | | | | ischemia | | | | | | isdemonstrated. No | | | | | | midline shift, or mass | | | | | | effect is | | | | | | demonstrated.No abnormal | | | | | | extra-axial fluid | | | | | | collections are | | | | | | demonstrated. Thebasi | | | | | | lar cisterns appear | | | | | | patent.MRA | | | | | | intracranial: No left | | | | | | A1 segment is | | | | | | identified. The left | | | | | | [id number] is supplied by | | | | | | the A1 segment of the | | | | | | right anteriorcerebral | | | | | | artery and a patent | | | | | | anterior communicating | | | | | | artery. Thebasilarart | | | | | | chang supplies both | | | | | | posterior cerebral | | | | | | arteries. There | | | | | | isminimal narrowing in | | | | | | the right M1 segment and | | | | | | there is alsonarrowing | | | | | | in the right LEADED GLASS INSTALLER distal | | | | | | to the P1 segment. No | | | | | | otherareas of stenosis | | | | | | aredemonstrated. No | | | | | | occlusion is | | | | | | demonstrated at the | | | | | | level of thecircle of | | | | | | Amin.MRA neck: Focal | | | | | | narrowing is present at | | | | | | the origin of | | | | | | thebilateral vertebral | | | | | | arteries. Left | | | | | | vertebral artery is | | | | | | dominant.Minimal | | | | | | irregularity is seen at | | | | | | the bilateral carotid | | | | | | bulb region,but noflow | | | | | | limiting lesion is | | | | | | identified in the | | | | | | carotid | | | | | | arteries.---IMPRESSION:N | | | | | | o evidence of acute | | | | | | ischemia demonstrated on | | | | | | today's study.Narrowing | | | | | | in the right M1 (MCA) | | | | | | and right LEADED GLASS INSTALLER arteries, | | | | | | as above.Narrowing at | | | | | | the bilateral vertebral | | | | | | artery origins. | | | | + + + + + + + + | Specimen | + + | | + + + +---------+ + + | Performing | Address | City/State/Zipcode | Phone Number | | Organization | | | | + +---------+ + + | [facility] DEPARTMENT OF | | | | | RADIOLOGY | | | | + +---------+ + + MRA NECK WWO CONTRAST (04/01/2007 9:51 PM PST) + + + + + + | Component | Value | Ref Range | Performed | Pathologist | | | | | At | Signature | + + + + + + | MR MRA NECK | Radiologist 1: JAYCE | | | | | BAUTISTA | ANN Vasquez, | | | | | CONTRAST | M.D.-Radiologist 2: | | | | | | Damaso NIELSEN, | | | | | | M.D.EXAM: MRI brain | | | | | | without contrastMRA | | | | | | brain without contrast + | | | | | | MIP imagesMRA and neck | | | | | | with contrast plus | | | | | | reconstructed and MIP | | | | | | imagesHISTORY: Rule out | | | | | | strokeTECHNIQUE: Imag | | | | | | es obtained on 3.0 Rachelle | | | | | | magnet through the | | | | | | brainSagittal T1 | | | | | | weighted image.Axial T1, | | | | | | PD, and T2 weighted | | | | | | images.Coronal | | | | | | FLAIRAxial DWIAxial | | | | | | GREMRA of the | | | | | | intracranial vessels | | | | | | with 3D time of flight | | | | | | images andMIP | | | | | | reconstructed | | | | | | images.Contrast enhanced | | | | | | MRA of the neck vessels | | | | | | with reconstructed | | | | | | andMIP | | | | | | images.Appropriate | | | | | | weight based dose of | | | | | | Omniscan was given | | | | | | intravenouslyfor | | | | | | contrast | | | | | | studies.COMPARISON: | | | | | | Prior head | | | | | | CTFINDINGS:Brain: Bra | | | | | | in parenchyma | | | | | | demonstrates mild | | | | | | periventricular | | | | | | [id number] | | | | | | suggestive of chronic | | | | | | small vessel | | | | | | disease. Apunctate | | | | | | area of blooming is seen | | | | | | in the left putamen, | | | | | | suggestiveof prior | | | | | | microbleed. No | | | | | | evidence of acute | | | | | | ischemia | | | | | | isdemonstrated. No | | | | | | midline shift, or mass | | | | | | effect is | | | | | | demonstrated.No abnormal | | | | | | extra-axial fluid | | | | | | collections are | | | | | | demonstrated. Thebasi | | | | | | lar cisterns appear | | | | | | patent.MRA | | | | | | intracranial: No left | | | | | | A1 segment is | | | | | | identified. The left | | | | | | [id number] is supplied by | | | | | | the A1 segment of the | | | | | | right anteriorcerebral | | | | | | artery and a patent | | | | | | anterior communicating | | | | | | artery. Thebasilarart | | | | | | chang supplies both | | | | | | posterior cerebral | | | | | | arteries. There | | | | | | isminimal narrowing in | | | | | | the right M1 segment and | | | | | | there is alsonarrowing | | | | | | in the right LEADED GLASS INSTALLER distal | | | | | | to the P1 segment. No | | | | | | otherareas of stenosis | | | | | | aredemonstrated. No | | | | | | occlusion is | | | | | | demonstrated at the | | | | | | level of thecircle of | | | | | | Amin.MRA neck: Focal | | | | | | narrowing is present at | | | | | | the origin of | | | | | | thebilateral vertebral | | | | | | arteries. Left | | | | | | vertebral artery is | | | | | | dominant.Minimal | | | | | | irregularity is seen at | | | | | | the bilateral carotid | | | | | | bulb region,but noflow | | | | | | limiting lesion is | | | | | | identified in the | | | | | | carotid | | | | | | arteries.---IMPRESSION:N | | | | | | o evidence of acute | | | | | | ischemia demonstrated on | | | | | | today's study.Narrowing | | | | | | in the right M1 (MCA) | | | | | | and right LEADED GLASS INSTALLER arteries, | | | | | | as above.Narrowing at | | | | | | the bilateral vertebral | | | | | | artery origins. | | | | + + + + + + + + | Specimen | + + | | + + + +---------+ + + | Performing | Address | City/State/Zipcode | Phone Number | | Organization | | | | + +---------+ + + | [facility] DEPARTMENT OF | | | | | RADIOLOGY | | | | + +---------+ + + MAGNESIUM, PLASMA (04/01/2007 7:00 AM PST) + +-------+ + + + | Component | Value | Ref Range | Performed | Pathologist | | | | | At | Signature | + +-------+ + + + | MAGNESIUM,P | 2.2 | 1.8 - 2.5 mg/dL | [facility] | | | LASMA | | | DEPARTMENT | | | | | | OF | | | | | | PATHOLOGY | | + +-------+ + + + + + | Specimen | + + | | + + + + + + + | Performing | Address | City/State/Zipcode | Phone Number | | Organization | | | | + + + + + | [facility] DEPARTMENT OF | [facility] | [place] [address] | | | PATHOLOGY | [address] | | | + + + + + | [facility] DEPARTMENT OF | [address] | [place] [address] | | | PATHOLOGY | [address] | | | + + + + + LIVER SET (04/01/2007 7:00 AM PST) + +---------+ + + + | Component | Value | Ref Range | Performed | Pathologist | | | | | At | Signature | + +---------+ + + + | ALBUMIN, | 3.3 (L) | 3.5 - 4.7 g/dL | [facility] | | | PLASMA | | | DEPARTMENT | | | (LAB) | | | OF | | | | | | PATHOLOGY | | + +---------+ + + + | BILIRUBIN | 0.7 | 0.3 - 1.2 mg/dL | [facility] | | | TOTAL | | | DEPARTMENT | | | | | | OF | | | | | | PATHOLOGY | | + +---------+ + + + | BILIRUBIN | 0.1 | <0.4 mg/dL | [facility] | | | DIRECT | | | DEPARTMENT | | | | | | OF | | | | | | PATHOLOGY | | + +---------+ + + + | ALK PHOS | 136 (H) | 42 - 98 U/L | [facility] | | | | | | DEPARTMENT | | | | | | OF | | | | | | PATHOLOGY | | + +---------+ + + + | AST(SGOT) | 19 | 15 - 41 U/L | [facility] | | | | | | DEPARTMENT | | | | | | OF | | | | | | PATHOLOGY | | + +---------+ + + + | ALT (SGPT) | 5 (L) | 13 - 48 U/L | [facility] | | | | | | DEPARTMENT | | | | | | OF | | | | | | PATHOLOGY | | + +---------+ + + + | TOTAL | 6.1 | 6.1 - 7.9 g/dL | [facility] | | | PROTEIN, | | | DEPARTMENT | | | PLASMA | | | OF | | | (LAB) | | | PATHOLOGY | | + +---------+ + + + + + | Specimen | + + | | + + + + + + + | Performing | Address | City/State/Zipcode | Phone Number | | Organization | | | | + + + + + | [facility] | [address] | [place] [address] | | | PATHOLOGY | [address] | | | + + + + + | [facility] | [address] [place] [address] | [place] [address] | | | PATHOLOGY | [address] | | | + + + + + TSH-THYROID STIM HORMONE (04/01/2007 7:00 AM PST) + + + + + + | Component | Value | Ref Range | Performed | Pathologist | | | | | At | Signature | + + + + + + | TSH | 5.90 (H) | 0.34 - 5.60 | | | | | | uIU/ml | | | + + + + + + + + | Specimen | + + | | + + + + + | Narrative | Performed At | + + + | TSH value falls between the upper | | | end of the euthyroid range and the | | | hypothyroid range. Reference | | | range change effective 01/21/07 [facility] | | | [facility]) [facility] | | | [address] | | | [place] [address] | | + + + + + + + + | Performing | Address | City/State/Zipcode | Phone Number | | Organization | | | | + + + + + | [facility] | [address] | [place] [address] | | | LABORATORY | | | | + + + + + RENAL FUNCTION SET (04/01/2007 7:00 AM PST) + +---------+ + + + | Component | Value | Ref Range | Performed | Pathologist | | | | | At | Signature | + +---------+ + + + | GLUCOSE, | 90 | 60 - 99 mg/dL | [facility] | | | PLASMA | | | DEPARTMENT | | | (LAB) | | | OF | | | | | | PATHOLOGY | | + +---------+ + + + | BUN, PLASMA | 9 | 6 - 20 mg/dL | [facility] | | | (LAB) | | | DEPARTMENT | | | | | | OF | | | | | | PATHOLOGY | | + +---------+ + + + | CREATININE | 1.0 | 0.6 - 1.1 mg/dL | [facility] | | | PLASMA | | | DEPARTMENT | | | (LAB) | | | OF | | | | | | PATHOLOGY | | + +---------+ + + + | ALBUMIN, | 3.4 (L) | 3.5 - 4.7 g/dL | [facility] | | | PLASMA | | | DEPARTMENT | | | (LAB) | | | OF | | | | | | PATHOLOGY | | + +---------+ + + + | CALCIUM, | 9.4 | 8.5 - 10.5 | [facility] | | | PLASMA | | mg/dL | DEPARTMENT | | | (LAB) | | | OF | | | | | | PATHOLOGY | | + +---------+ + + + | PHOSPHORUS, | 3.4 | 2.4 - 4.7 mg/dL | [facility] | | | PLASMA | | | DEPARTMENT | | | (LAB) | | | OF | | | | | | PATHOLOGY | | + +---------+ + + + | SODIUM, | 138 | 136 - 145 | [facility] | | | PLASMA | | mmol/L | DEPARTMENT | | | (LAB) | | | OF | | | | | | PATHOLOGY | | + +---------+ + + + | POTASSIUM, | 3.7 | 3.5 - 5.1 | [facility] | | | PLASMA | | mmol/L | DEPARTMENT | | | (LAB) | | | OF | | | | | | PATHOLOGY | | + +---------+ + + + | CHLORIDE, | 111 (H) | 98 - 107 mmol/L | [facility] | | | PLASMA | | | DEPARTMENT | | | (LAB) | | | OF | | | | | | PATHOLOGY | | + +---------+ + + + | TOTAL CO2, | 23 | 23 - 29 mmol/L | [facility] | | | PLASMA | | | DEPARTMENT | | | (LAB) | | | OF | | | | | | PATHOLOGY | | + +---------+ + + + + + | Specimen | + + | | + + + + + + + | Performing | Address | City/State/Zipcode | Phone Number | | Organization | | | | + + + + + | [facility] DEPARTMENT OF | [address] | [place] [address] | | | PATHOLOGY | [address] | | | + + + + + | [facility] DEPARTMENT OF | [address] | [place] [address] | | | PATHOLOGY | [address] | | | + + + + + CBC ONLY WITH PLATELET (04/01/2007 7:00 AM PST) + + + + + + | Component | Value | Ref Range | Performed | Pathologist | | | | | At | Signature | + + + + + + | WHITE CELL | 7.6 | 4.4 - 11.0 K/cu | [facility] | | | COUNT | | mm | DEPARTMENT | | | | | | OF | | | | | | PATHOLOGY | | + + + + + + | RED CELL | 3.43 (L) | 4.00 - 5.20 | [facility] | | | COUNT | | M/cu mm | DEPARTMENT | | | | | | OF | | | | | | PATHOLOGY | | + + + + + + | HEMOGLOBIN | 11.2 (L) | 12.0 - 16.0 | [facility] | | | | | g/dL | DEPARTMENT | | | | | | OF | | | | | | PATHOLOGY | | + + + + + + | HEMATOCRIT | 32.2 (L) | 36.0 - 46.0 % | [facility] | | | | | | DEPARTMENT | | | | | | OF | | | | | | PATHOLOGY | | + + + + + + | MCV | 93.8 | 80.0 - 96.0 fL | [facility] | | | | | | DEPARTMENT | | | | | | OF | | | | | | PATHOLOGY | | + + + + + + | MCHC | 34.9 | 33.4 - 35.5 | [facility] | | | | | g/dL | DEPARTMENT | | | | | | OF | | | | | | PATHOLOGY | | + + + + + + | RDW | 13.3 | 11.5 - 15.0 % | [facility] | | | | | | DEPARTMENT | | | | | | OF | | | | | | PATHOLOGY | | + + + + + + | PLATELET | 275 | 150 - 400 K/cu | [facility] | | | COUNT | | mm | DEPARTMENT | | | | | | OF | | | | | | PATHOLOGY | | + + + + + + + + | Specimen | + + | | + + + + + + + | Performing | Address | City/State/Zipcode | Phone Number | | Organization | | | | + + + + + | [facility] DEPARTMENT OF | [address] | [place] [address] | | | PATHOLOGY | [address] | | | + + + + + | [facility] DE[facility]MENT OF | [address] | [place] [address] | | | PATHOLOGY | [address] | | | + + + + + URINE, MICROSCOPIC EXAM (03/31/2007 10:45 PM PST) + + + + + + | Component | Value | Ref Range | Performed | Pathologist | | | | | At | Signature | + + + + + + | SQUAMOUS | Moderate | /hpf | [facility] | | | EPITHELIAL | | | DEPARTMENT | | | | | | OF | | | | | | PATHOLOGY | | + + + + + + | NON-SQUAMOU | Few | /hpf | [facility] | | | S EPITH | | | DEPARTMENT | | | | | | OF | | | | | | PATHOLOGY | | + + + + + + | RED CELLS | 0-1 | 0 - 3 /hpf | [facility] | | | | | | DEPARTMENT | | | | | | OF | | | | | | PATHOLOGY | | + + + + + + | WHITE CELLS | 7-10 | 0 - 5 /hpf | [facility] | | | | | | DEPARTMENT | | | | | | OF | | | | | | PATHOLOGY | | + + + + + + | BACTERIA | Few | /hpf | [facility] | | | | | | DEPARTMENT | | | | | | OF | | | | | | PATHOLOGY | | + + + + + + | MUCOUS | None | /hpf | [facility] | | | | | | DEPARTMENT | | | | | | OF | | | | | | PATHOLOGY | | + + + + + + | HYALINE | None | 0 - 1 /lpf | [facility] | | | CASTS | | | DEPARTMENT | | | | | | OF | | | | | | PATHOLOGY | | + + + + + + | GRANULAR | None | /lpf | [facility] | | | CASTS | | | DEPARTMENT | | | | | | OF | | | | | | PATHOLOGY | | + + + + + + | CELLULAR | None | /lpf | [facility] | | | CASTS | | | DEPARTMENT | | | | | | OF | | | | | | PATHOLOGY | | + + + + + + | AMORPHOUS | None | /hpf | [facility] | | | CRYSTALS | | | DEPARTMENT | | | | | | OF | | | | | | PATHOLOGY | | + + + + + + | CALCIUM | None | /hpf | [facility] | | | OXALATE | | | DEPARTMENT | | | JONELLE | | | OF | | | | | | PATHOLOGY | | + + + + + + | URIC ACID | None | /hpf | [facility] | | | CRYSTALS | | | DEPARTMENT | | | | | | OF | | | | | | PATHOLOGY | | + + + + + + | TRIPLE P04 | None | /hpf | [facility] | | | CRYSTALS | | | DEPARTMENT | | | | | | OF | | | | | | PATHOLOGY | | + + + + + + | YEAST (LAB) | None | /hpf | [facility] | | | | | | DEPARTMENT | | | | | | OF | | | | | | PATHOLOGY | | + + + + + + | TRICHOMONAS | None | /hpf | [facility] | | | | | | DEPARTMENT | | | | | | OF | | | | | | PATHOLOGY | | + + + + + + + + | Specimen | + + | | + + + + + + + | Performing | Address | City/State/Zipcode | Phone Number | | Organization | | | | + + + + + | [facility] DEPARTMENT OF | [address] | [place] [address] | | | PATHOLOGY | [address] | | | + + + + + | [facility] DEPARTMENT OF | [address] | [place] [address] | | | PATHOLOGY | [address] | | | + + + + + BENITO JEAN (03/31/2007 10:45 PM PST) + + + + + + | Component | Value | Ref Range | Performed | Pathologist | | | | | At | Signature | + + + + + + | COLOR(UR) | Yellow | | [facility] | | | | | | DEPARTMENT | | | | | | OF | | | | | | PATHOLOGY | | + + + + + + | APPEARANCE | Hazy | | [facility] | | | | | | DEPARTMENT | | | | | | OF | | | | | | PATHOLOGY | | + + + + + + | GLUCOSE(UR) | Negative | mg/dL | [facility] | | | | | | DEPARTMENT | | | | | | OF | | | | | | PATHOLOGY | | + + + + + + | BILIRUBIN | Negative | | [facility] | | | | | | DEPARTMENT | | | | | | OF | | | | | | PATHOLOGY | | + + + + + + | KETONES | Negative | mg/dL | [facility] | | | | | | DEPARTMENT | | | | | | OF | | | | | | PATHOLOGY | | + + + + + + | SPECIFIC | 1.015 | 1.005 - 1.030 | [facility] | | | GRAVITY | | | DEPARTMENT | | | | | | OF | | | | | | PATHOLOGY | | + + + + + + | BLOOD | Negative | | [facility] | | | | | | DEPARTMENT | | | | | | OF | | | | | | PATHOLOGY | | + + + + + + | PH(UR) | 7.0 | 5.0 - 8.0 | [facility] | | | | | | DEPARTMENT | | | | | | OF | | | | | | PATHOLOGY | | + + + + + + | PROTEIN(LAB | Negative | mg/dL | [facility] | | | ) | | | DEPARTMENT | | | | | | OF | | | | | | PATHOLOGY | | + + + + + + | UROBILINOGE | 0.2 | 0 - 0.2 BRUNA | [facility] | | | N | | UNITS | DEPARTMENT | | | | | | OF | | | | | | PATHOLOGY | | + + + + + + | NITRITES | Negative | Negative | [facility] | | | | | | DEPARTMENT | | | | | | OF | | | | | | PATHOLOGY | | + + + + + + | LEUKOCYTE | Small | Negative | [facility] | | | ESTERASE | | | DEPARTMENT | | | | | | OF | | | | | | PATHOLOGY | | + + + + + + + + | Specimen | + + | | + + + + + + + | Performing | Address | City/State/Zipcode | Phone Number | | Organization | | | | + + + + + | [facility] DEPARTMENT OF | [address] | [place] [address] | | | PATHOLOGY | [address] | | | + + + + + | [facility] DEPARTMENT OF | [facility] | [place] [address] | | | PATHOLOGY | [address] | | | + + + + + RENAL FUNCTION SET (03/31/2007 9:40 PM PST) + +---------+ + + + | Component | Value | Ref Range | Performed | Pathologist | | | | | At | Signature | + +---------+ + + + | GLUCOSE, | 95 | 60 - 99 mg/dL | [facility] | | | PLASMA | | | DEPARTMENT | | | (LAB) | | | OF | | | | | | PATHOLOGY | | + +---------+ + + + | BUN, PLASMA | 9 | 6 - 20 mg/dL | [facility] | | | (LAB) | | | DEPARTMENT | | | | | | OF | | | | | | PATHOLOGY | | + +---------+ + + + | CREATININE | 1.1 | 0.6 - 1.1 mg/dL | [facility] | | | PLASMA | | | DEPARTMENT | | | (LAB) | | | OF | | | | | | PATHOLOGY | | + +---------+ + + + | ALBUMIN, | 3.7 | 3.5 - 4.7 g/dL | [facility] | | | PLASMA | | | DEPARTMENT | | | (LAB) | | | OF | | | | | | PATHOLOGY | | + +---------+ + + + | CALCIUM, | 9.8 | 8.5 - 10.5 | [facility] | | | PLASMA | | mg/dL | DEPARTMENT | | | (LAB) | | | OF | | | | | | PATHOLOGY | | + +---------+ + + + | PHOSPHORUS, | 2.9 | 2.4 - 4.7 mg/dL | [facility] | | | PLASMA | | | DEPARTMENT | | | (LAB) | | | OF | | | | | | PATHOLOGY | | + +---------+ + + + | SODIUM, | 141 | 136 - 145 | [facility] | | | PLASMA | | mmol/L | DEPARTMENT | | | (LAB) | | | OF | | | | | | PATHOLOGY | | + +---------+ + + + | POTASSIUM, | 3.7 | 3.5 - 5.1 | [facility] | | | PLASMA | | mmol/L | DEPARTMENT | | | (LAB) | | | OF | | | | | | PATHOLOGY | | + +---------+ + + + | CHLORIDE, | 109 (H) | 98 - 107 mmol/L | [facility] | | | PLASMA | | | DEPARTMENT | | | (LAB) | | | OF | | | | | | PATHOLOGY | | + +---------+ + + + | TOTAL CO2, | 25 | 23 - 29 mmol/L | [facility] | | | PLASMA | | | DEPARTMENT | | | (LAB) | | | OF | | | | | | PATHOLOGY | | + +---------+ + + + + + | Specimen | + + | | + + + + + + + | Performing | Address | City/State/Zipcode | Phone Number | | Organization | | | | + + + + + | [facility] DEPARTMENT OF | [address] | [place] [address] | | | PATHOLOGY | [address] | | | + + + + + | [facility] DEPARTMENT OF | [address] | [place] [address] | | | PATHOLOGY | [address] | | | + + + + + MAGNESIUM, PLASMA (03/31/2007 9:40 PM PST) + +-------+ + + + | Component | Value | Ref Range | Performed | Pathologist | | | | | At | Signature | + +-------+ + + + | MAGNESIUM,P | 2.1 | 1.8 - 2.5 mg/dL | [facility] | | | LASMA | | | DEPARTMENT | | | | | | OF | | | | | | PATHOLOGY | | + +-------+ + + + + + | Specimen | + + | | + + + + + + + | Performing | Address | City/State/Zipcode | Phone Number | | Organization | | | | + + + + + | [facility] DEPARTMENT OF | [facility] | [place] [address] | | | PATHOLOGY | [address] | | | + + + + + | [facility] DEPARTMENT OF | [facility] | [place] [address] | | | PATHOLOGY | [address] | | | + + + + + CBC ONLY WITH PLATELET (03/31/2007 9:40 PM PST) + + + + + + | Component | Value | Ref Range | Performed | Pathologist | | | | | At | Signature | + + + + + + | WHITE CELL | 7.3 | 4.4 - 11.0 K/cu | [facility] | | | COUNT | | mm | DEPARTMENT | | | | | | OF | | | | | | PATHOLOGY | | + + + + + + | RED CELL | 3.40 (L) | 4.00 - 5.20 | [facility] | | | COUNT | | M/cu mm | DEPARTMENT | | | | | | OF | | | | | | PATHOLOGY | | + + + + + + | HEMOGLOBIN | 11.4 (L) | 12.0 - 16.0 | [facility] | | | | | g/dL | DEPARTMENT | | | | | | OF | | | | | | PATHOLOGY | | + + + + + + | HEMATOCRIT | 31.7 (L) | 36.0 - 46.0 % | [facility] | | | | | | DEPARTMENT | | | | | | OF | | | | | | PATHOLOGY | | + + + + + + | MCV | 93.3 | 80.0 - 96.0 fL | [facility] | | | | | | DEPARTMENT | | | | | | OF | | | | | | PATHOLOGY | | + + + + + + | MCHC | 35.8 (H) | 33.4 - 35.5 | [facility] | | | | | g/dL | DEPARTMENT | | | | | | OF | | | | | | PATHOLOGY | | + + + + + + | RDW | 13.3 | 11.5 - 15.0 % | [facility] | | | | | | DEPARTMENT | | | | | | OF | | | | | | PATHOLOGY | | + + + + + + | PLATELET | 276 | 150 - 400 K/cu | [facility] | | | COUNT | | mm | DEPARTMENT | | | | | | OF | | | | | | PATHOLOGY | | + + + + + + + + | Specimen | + + | | + + + + + + + | Performing | Address | City/State/Zipcode | Phone Number | | Organization | | | | + + + + + | [facility] DEPARTMENT OF | [address] | [place] [address] | | | PATHOLOGY | [address] | | | + + + + + | [facility] DE[facility]MENT OF | [address] | [place] [address] | | | PATHOLOGY | [address] | | | + + + + + LITHIUM, SERUM (03/31/2007 9:40 PM PST) + +-------+ + + + | Component | Value | Ref Range | Performed | Pathologist | | | | | At | Signature | + +-------+ + + + | LITHIUM | 1.5 | 0.5 - 1.5 | [facility] | | | SERUM | | mmol/L | DEPARTMENT | | | | | | OF | | | | | | PATHOLOGY | | + +-------+ + + + + + | Specimen | + + | | + + + + + + + | Performing | Address | City/State/Zipcode | Phone Number | | Organization | | | | + + + + + | [facility] | [address] | [place] [address] | | | PATHOLOGY | [address] | | | + + + + + | [facility] | [address] | [place] [address] | | | PATHOLOGY | [address] | | | + + + + + CHEST 1 VIEW (03/31/2007 9:35 PM PST) + + + + + + | Component | Value | Ref Range | Performed | Pathologist | | | | | At | Signature | + + + + + + | CHEST, 1 | Radiologist 1: GERSON, | | | | | VIEW | TYESHA Khan, | | | | | | M.D.-Radiologist 2: | | | | | | ALEKS CARMEN | | | | | | M.D.EXAM: AP | | | | | | chestHISTORY: Evaluate | | | | | | for | | | | | | pneumoniaCOMPARISON: | | | | | | NoneFINDINGS: There | | | | | | is minimal left basilar | | | | | | atelectasis, | | | | | | otherwisethe lungs are | | | | | | clear. No | | | | | | pneumothorax, pulmonary | | | | | | edema, or | | | | | | pleuraleffusion. The | | | | | | cardiac silhouette is | | | | | | within normal | | | | | | limits. Theosseous | | | | | | structures are | | | | | | intact.IMPRESSION:Minima | | | | | | l left lower lung zone | | | | | | atelectasis, otherwise | | | | | | clear lungs. | | | | + + + + + + + + | Specimen | + + | | + + + +---------+ + + | Performing | Address | City/State/Zipcode | Phone Number | | Organization | | | | + +---------+ + + | [facility] DEPARTMENT OF | | | | | RADIOLOGY | | | | + +---------+ + + CULT, URINE BACTI (03/31/2007 2:44 PM PST) + + + + + + | Component | Value | Ref Range | Performed | Pathologist | | | | | At | Signature | + + + + + + | SOURCE BODY | Clean catch | | | | | SITE | | | | | + + + + + + | CULTURE | Urine Culture | | | | | RESULT | | | | | | | Source...............: | | | | | | Clean catch | | | | | | Culture: Final | | | | | | Report: No growth (< | | | | | | 1,000 col/ml) after | | | | | | 24 hours | | | | | | Final Report | | | | | | Resulted: | | | | | | 04/09 [facility] | | | | | | ([address] | | | | | | Lab) [place] | | | | | | [facility] | | | | | | [place] [address] | | | | | | [address] | | | | | | Way [facility] | | | | | | and, [place] [address]weq | | | | | | nt: Test performed at | | | | | | [facility] | | | | | | [facility]. | | | | + + + + + + + + | Specimen | + + | | + + + + + + + | Performing | Address | City/State/Zipcode | Phone Number | | Organization | | | | + + + + + | [facility] | [address] | [place] [address] | | | LAB-MICRO | | | | + + + + + CBC ONLY WITH PLATELET (03/31/2007 1:54 PM PST) + + + + + + | Component | Value | Ref Range | Performed | Pathologist | | | | | At | Signature | + + + + + + | WHITE CELL | 8.2 | 4.4 - 11.0 K/cu | [facility] | | | COUNT | | mm | DEPARTMENT | | | | | | OF | | | | | | PATHOLOGY | | + + + + + + | RED CELL | 3.57 (L) | 4.00 - 5.20 | [facility] | | | COUNT | | M/cu mm | DEPARTMENT | | | | | | OF | | | | | | PATHOLOGY | | + + + + + + | HEMOGLOBIN | 11.7 (L) | 12.0 - 16.0 | [facility] | | | | | g/dL | DEPARTMENT | | | | | | OF | | | | | | PATHOLOGY | | + + + + + + | HEMATOCRIT | 33.2 (L) | 36.0 - 46.0 % | [facility] | | | | | | DEPARTMENT | | | | | | OF | | | | | | PATHOLOGY | | + + + + + + | MCV | 93.1 | 80.0 - 96.0 fL | [facility] | | | | | | DEPARTMENT | | | | | | OF | | | | | | PATHOLOGY | | + + + + + + | MCHC | 35.3 | 33.4 - 35.5 | [facility] | | | | | g/dL | DEPARTMENT | | | | | | OF | | | | | | PATHOLOGY | | + + + + + + | RDW | 13.4 | 11.5 - 15.0 % | [facility] | | | | | | DEPARTMENT | | | | | | OF | | | | | | PATHOLOGY | | + + + + + + | PLATELET | 270 | 150 - 400 K/cu | [facility] | | | COUNT | | mm | DEPARTMENT | | | | | | OF | | | | | | PATHOLOGY | | + + + + + + + + | Specimen | + + | | + + + + + | Narrative | Performed At | + + + | Ordered by an unspecified provider. | [facility] | | | DEPARTMENT OF | | | PATHOLOGY | + + + + + + + + | Performing | Address | City/State/Zipcode | Phone Number | | Organization | | | | + + + + + | [facility] DEPARTMENT | [address] | [place] [address] | | | PATHOLOGY | [address] | | | + + + + + | [facility] | [address] | [place] [address] | | | PATHOLOGY | [address] | | | + + + + + BENITO JEAN (03/31/2007 1:54 PM PST) + + + + + + | Component | Value | Ref Range | Performed | Pathologist | | | | | At | Signature | + + + + + + | COLOR(UR) | Yellow | | [facility] | | | | | | DEPARTMENT | | | | | | OF | | | | | | PATHOLOGY | | + + + + + + | APPEARANCE | Clear | | [facility] | | | | | | DEPARTMENT | | | | | | OF | | | | | | PATHOLOGY | | + + + + + + | GLUCOSE(UR) | Negative | mg/dL | [facility] | | | | | | DEPARTMENT | | | | | | OF | | | | | | PATHOLOGY | | + + + + + + | BILIRUBIN | Negative | | [facility] | | | | | | DEPARTMENT | | | | | | OF | | | | | | PATHOLOGY | | + + + + + + | KETONES | Negative | mg/dL | [facility] | | | | | | DEPARTMENT | | | | | | OF | | | | | | PATHOLOGY | | + + + + + + | SPECIFIC | 1.010 | 1.005 - 1.030 | [facility] | | | GRAVITY | | | DEPARTMENT | | | | | | OF | | | | | | PATHOLOGY | | + + + + + + | BLOOD | Negative | | [facility] | | | | | | DEPARTMENT | | | | | | OF | | | | | | PATHOLOGY | | + + + + + + | PH(UR) | 7.0 | 5.0 - 8.0 | [facility] | | | | | | DEPARTMENT | | | | | | OF | | | | | | PATHOLOGY | | + + + + + + | PROTEIN(LAB | Negative | mg/dL | [facility] | | | ) | | | DEPARTMENT | | | | | | OF | | | | | | PATHOLOGY | | + + + + + + | UROBILINOGE | 0.2 | 0 - 0.2 BRUNA | [facility] | | | N | | UNITS | DEPARTMENT | | | | | | OF | | | | | | PATHOLOGY | | + + + + + + | NITRITES | Negative | Negative | [facility] | | | | | | DEPARTMENT | | | | | | OF | | | | | | PATHOLOGY | | + + + + + + | LEUKOCYTE | Small | Negative | [facility] | | | ESTERASE | | | DEPARTMENT | | | | | | OF | | | | | | PATHOLOGY | | + + + + + + + + | Specimen | + + | | + + + + + | Narrative | Performed At | + + + | Ordered by an unspecified provider. Specimen volume <12ml; | [facility] | | microscopic not standardized. | DEPARTMENT OF | | | PATHOLOGY | + + + + + + + + | Performing | Address | City/State/Zipcode | Phone Number | | Organization | | | | + + + + + | [facility] DEPARTMENT OF | [address] | [place] [address] | | | PATHOLOGY | [address] | | | + + + + + | [facility] DEPARTMENT OF | [address] | [place] [address] | | | PATHOLOGY | [address] | | | + + + + + COAGULOPATHY PANEL (03/31/2007 1:54 PM PST) + + + + + + | Component | Value | Ref Range | Performed | Pathologist | | | | | At | Signature | + + + + + + | INR | 1.24 (H)Comment: | 0.90 - 1.20 INR | [facility] | | | | PT INR | | DEPARTMENT | | | | Therapeutic ranges for | | OF | | | | full | | PATHOLOGY | | | | anticoagulation: | | | | | | INR for | | | | | | Venous | | | | | | Thromboembolism | | | | | | | | | | | | (2.0-3.0)INR | | | | | | INR for most | | | | | | patients with mech. | | | | | | valves (2.5-3.5)I | | | | | | NR | | | | + + + + + + | APTT | 30.0Comment: | 26.0 - 36.0 | [facility] | | | | APTT | seconds | DEPARTMENT | | | | Therapeutic | | OF | | | | Range | | PATHOLOGY | | | | | | | | | | (75-120)sec | | | | | | Hepa | | | | | | rin levels of 0.35-0.7 | | | | | | U/mL | | | | + + + + + + | FIBRINOGEN | 342 | 200 - 450 mg/dL | [facility] | | | LEVEL | | | DEPARTMENT | | | | | | OF | | | | | | PATHOLOGY | | + + + + + + + + | Specimen | + + | | + + + + + | Narrative | Performed At | + + + | Ordered by an unspecified provider. | [facility] | | | DEPARTMENT OF | | | PATHOLOGY | + + + + + + + + | Performing | Address | City/State/Zipcode | Phone Number | | Organization | | | | + + + + + | [facility] DEPARTMENT | [facility] | [place] [address] | | | PATHOLOGY | [address] | | | + + + + + | [facility] DEPARTMENT OF | [address] | [place] [address] | | | PATHOLOGY | [address] | | | + + + + + URINE, MICROSCOPIC EXAM (03/31/2007 1:54 PM PST) + +-------+ + + + | Component | Value | Ref Range | Performed | Pathologist | | | | | At | Signature | + +-------+ + + + | SQUAMOUS | Few | /hpf | [facility] | | | EPITHELIAL | | | DEPARTMENT | | | | | | OF | | | | | | PATHOLOGY | | + +-------+ + + + | NON-SQUAMOU | None | /hpf | [facility] | | | S EPITH | | | DEPARTMENT | | | | | | OF | | | | | | PATHOLOGY | | + +-------+ + + + | RED CELLS | None | 0 - 3 /hpf | [facility] | | | | | | DEPARTMENT | | | | | | OF | | | | | | PATHOLOGY | | + +-------+ + + + | WHITE CELLS | 1-2 | 0 - 5 /hpf | [facility] | | | | | | DEPARTMENT | | | | | | OF | | | | | | PATHOLOGY | | + +-------+ + + + | BACTERIA | None | /hpf | [facility] | | | | | | DEPARTMENT | | | | | | OF | | | | | | PATHOLOGY | | + +-------+ + + + | MUCOUS | None | /hpf | [facility] | | | | | | DEPARTMENT | | | | | | OF | | | | | | PATHOLOGY | | + +-------+ + + + | HYALINE | None | 0 - 1 /lpf | [facility] | | | CASTS | | | DEPARTMENT | | | | | | OF | | | | | | PATHOLOGY | | + +-------+ + + + | GRANULAR | None | /lpf | [facility] | | | CASTS | | | DEPARTMENT | | | | | | OF | | | | | | PATHOLOGY | | + +-------+ + + + | CELLULAR | None | /lpf | [facility] | | | CASTS | | | DEPARTMENT | | | | | | OF | | | | | | PATHOLOGY | | + +-------+ + + + | AMORPHOUS | None | /hpf | [facility] | | | CRYSTALS | | | DEPARTMENT | | | | | | OF | | | | | | PATHOLOGY | | + +-------+ + + + | CALCIUM | None | /hpf | [facility] | | | OXALATE | | | DEPARTMENT | | | JONELLE | | | OF | | | | | | PATHOLOGY | | + +-------+ + + + | URIC ACID | None | /hpf | [facility] | | | CRYSTALS | | | DEPARTMENT | | | | | | OF | | | | | | PATHOLOGY | | + +-------+ + + + | TRIPLE P04 | None | /hpf | [facility] | | | CRYSTALS | | | DEPARTMENT | | | | | | OF | | | | | | PATHOLOGY | | + +-------+ + + + | YEAST (LAB) | None | /hpf | [facility] | | | | | | DEPARTMENT | | | | | | OF | | | | | | PATHOLOGY | | + +-------+ + + + | TRICHOMONAS | None | /hpf | [facility] | | | | | | DEPARTMENT | | | | | | OF | | | | | | PATHOLOGY | | + +-------+ + + + + + | Specimen | + + | | + + + + + | Narrative | Performed At | + + + | Ordered by an unspecified provider. Specimen volume <12ml; | [facility] | | microscopic not standardized. | DEPARTMENT OF | | | PATHOLOGY | + + + + + + + + | Performing | Address | City/State/Zipcode | Phone Number | | Organization | | | | + + + + + | [facility] DEPARTMENT | [address] | [place] [address] | | | PATHOLOGY | [address] | | | + + + + + | [facility] | [address] | [place] [address] | | | PATHOLOGY | [address] | | | + + + + + LITHIUM, SERUM (03/31/2007 1:54 PM PST) + +---------+ + + + | Component | Value | Ref Range | Performed | Pathologist | | | | | At | Signature | + +---------+ + + + | LITHIUM | 1.6 (H) | 0.5 - 1.5 | [facility] | | | SERUM | | mmol/L | DEPARTMENT | | | | | | OF | | | | | | PATHOLOGY | | + +---------+ + + + + + | Specimen | + + | | + + + + + | Narrative | Performed At | + + + | Ordered by an unspecified provider. | [facility] | | | DEPARTMENT OF | | | PATHOLOGY | + + + + + + + + | Performing | Address | City/State/Zipcode | Phone Number | | Organization | | | | + + + + + | [facility] | [address] | [place] [address] | | | PATHOLOGY | [address] | | | + + + + + | [facility] | [address] | [place] [address] | | | PATHOLOGY | [address] | | | + + + + + TROPONIN I (03/31/2007 1:54 PM PST) + +-------+ + + + | Component | Value | Ref Range | Performed | Pathologist | | | | | At | Signature | + +-------+ + + + | TROPONIN I | 0.01 | <0.50 ng/mL | [facility] | | | | | | DEPARTMENT | | | | | | OF | | | | | | PATHOLOGY | | + +-------+ + + + + + | Specimen | + + | | + + + + + | Narrative | Performed At | + + + | Ordered by an unspecified provider. | [facility] | | | DEPARTMENT OF | | | PATHOLOGY | + + + + + + + + | Performing | Address | City/State/Zipcode | Phone Number | | Organization | | | | + + + + + | [facility] | [address] | [place] [address] | | | PATHOLOGY | [address] | | | + + + + + | [facility] | [address] | [place] [address] | | | PATHOLOGY | [address] | | | + + + + + COMP METABOLIC SET (03/31/2007 1:54 PM PST) + +---------+ + + + | Component | Value | Ref Range | Performed | Pathologist | | | | | At | Signature | + +---------+ + + + | GLUCOSE, | 101 (H) | 60 - 99 mg/dL | [facility] | | | PLASMA | | | DEPARTMENT | | | (LAB) | | | OF | | | | | | PATHOLOGY | | + +---------+ + + + | BUN, PLASMA | 10 | 6 - 20 mg/dL | [facility] | | | (LAB) | | | DEPARTMENT | | | | | | OF | | | | | | PATHOLOGY | | + +---------+ + + + | CREATININE | 1.2 (H) | 0.6 - 1.1 mg/dL | [facility] | | | PLASMA | | | DEPARTMENT | | | (LAB) | | | OF | | | | | | PATHOLOGY | | + +---------+ + + + | TOTAL | 6.6 | 6.1 - 7.9 g/dL | [facility] | | | PROTEIN, | | | DEPARTMENT | | | PLASMA | | | OF | | | (LAB) | | | PATHOLOGY | | + +---------+ + + + | ALBUMIN, | 3.9 | 3.5 - 4.7 g/dL | [facility] | | | PLASMA | | | DEPARTMENT | | | (LAB) | | | OF | | | | | | PATHOLOGY | | + +---------+ + + + | CALCIUM, | 10.0 | 8.5 - 10.5 | [facility] | | | PLASMA | | mg/dL | DEPARTMENT | | | (LAB) | | | OF | | | | | | PATHOLOGY | | + +---------+ + + + | BILIRUBIN | 0.9 | 0.3 - 1.2 mg/dL | [facility] | | | TOTAL | | | DEPARTMENT | | | | | | OF | | | | | | PATHOLOGY | | + +---------+ + + + | ALK PHOS | 154 (H) | 42 - 98 U/L | [facility] | | | | | | DEPARTMENT | | | | | | OF | | | | | | PATHOLOGY | | + +---------+ + + + | AST(SGOT) | 20 | 15 - 41 U/L | [facility] | | | | | | DEPARTMENT | | | | | | OF | | | | | | PATHOLOGY | | + +---------+ + + + | SODIUM, | 140 | 136 - 145 | [facility] | | | PLASMA | | mmol/L | DEPARTMENT | | | (LAB) | | | OF | | | | | | PATHOLOGY | | + +---------+ + + + | POTASSIUM, | 3.9 | 3.5 - 5.1 | [facility] | | | PLASMA | | mmol/L | DEPARTMENT | | | (LAB) | | | OF | | | | | | PATHOLOGY | | + +---------+ + + + | CHLORIDE, | 107 | 98 - 107 mmol/L | [facility] | | | PLASMA | | | DEPARTMENT | | | (LAB) | | | OF | | | | | | PATHOLOGY | | + +---------+ + + + | TOTAL CO2, | 26 | 23 - 29 mmol/L | [facility] | | | PLASMA | | | DEPARTMENT | | | (LAB) | | | OF | | | | | | PATHOLOGY | | + +---------+ + + + | ALT (SGPT) | 5 (L) | 13 - 48 U/L | [facility] | | | | | | DEPARTMENT | | | | | | OF | | | | | | PATHOLOGY | | + +---------+ + + + + + | Specimen | + + | | + + + + + | Narrative | Performed At | + + + | Ordered by an unspecified provider. | [facility] | | | DEPARTMENT OF | | | PATHOLOGY | + + + + + + + + | Performing | Address | City/State/Zipcode | Phone Number | | Organization | | | | + + + + + | [facility] | [address] | [place] [address] | | | PATHOLOGY | [address] | | | + + + + + | [facility] | [address] | [place] [address] | | | PATHOLOGY | [address] | | | + + + + + 12 LEAD ECG (03/31/2007 1:33 PM PST) + + + + + + | Component | Value | Ref Range | Performed | Pathologist | | | | | At | Signature | + + + + + + | VENTRICULAR | 68 | BPM | [facility] | | | RATE | | | OF | | | | | | CARDIOLOGY | | + + + + + + | ATRIAL RATE | 68 | BPM | [facility] | | | | | | OF | | | | | | CARDIOLOGY | | + + + + + + | P-R | 200 | ms | [facility] | | | INTERVAL | | | OF | | | | | | CARDIOLOGY | | + + + + + + | QRS | 82 | ms | [facility] | | | DURATION | | | OF | | | | | | CARDIOLOGY | | + + + + + + | QT | 382 | ms | [facility] | | | | | | OF | | | | | | CARDIOLOGY | | + + + + + + | QTC | 406 | ms | [facility] | | | | | | OF | | | | | | CARDIOLOGY | | + + + + + + | R AXIS | -28 | degrees | [facility] | | | | | | OF | | | | | | CARDIOLOGY | | + + + + + + | T AXIS | 141 | degrees | [facility] | | | | | | OF | | | | | | CARDIOLOGY | | + + + + + + | EKG | Normal sinus | | [facility] | | | DIAGNOSIS | rhythmMinimal voltage | | OF | | | | criteria for LVH, may be | | CARDIOLOGY | | | | normal | | | | | | variantNonspecific ST | | | | | | and T wave | | | | | | abnormalityAbnormal | | | | | | ECG"I have personally | | | | | | interpreted this report, | | | | | | either alone or with a | | | | | | trainee."Confirmed by | | | | | | KYRA CELESTIN ([id number]) on | | | | | | 01-Apr-2007 10:08:25 | | | | + + + + + + | LINK TO | | | [facility] | | | [facility] | | | OF | | | (ECG | | | CARDIOLOGY | | | VIEWER) | | | | | + + + + + + + + | Specimen | + + | | + + + + + + + | Performing | Address | City/State/Zipcode | Phone Number | | Organization | | | | + + + + + | [facility] | [address] | [place], [place] | | | CARDIOLOGY | [facility] | [address] | | + + + + + | [facility] | [address] | [place], [place] | | | CARDIOLOGY | [facility] | [address] | | + + + + + CT HEAD WO CONTRAST (03/31/2007 1:20 PM PST) + + + + + + | Component | Value | Ref Range | Performed | Pathologist | | | | | At | Signature | + + + + + + | CT HEAD WO | Radiologist 1: DEE DEE, | | | | | CONTRAST | Marques JOSE-Radiologist | | | | | | 2: Damaso NIELSEN, | | | | | | MarquesCT BRAIN WITHOUT | | | | | | CONTRASTCOMPARISON: | | | | | | NoneHISTORY: Altered | | | | | | mental status and | | | | | | weaknessTECHNIQUE: ax | | | | | | ial ct scan through the | | | | | | brain without | | | | | | contrast.FINDINGS: A | | | | | | focus of | | | | | | encephalomalacia is seen | | | | | | in the medial aspectof | | | | | | the right occipital | | | | | | lobe. Parenchymal | | | | | | volume loss is | | | | | | present,out of | | | | | | proportion to patient's | | | | | | age. No evidence of | | | | | | acuteintraparenchymal | | | | | | hemorrhage, midline | | | | | | shift, or mass effect | | | | | | isdemonstrated. Promi | | | | | | nent ventricles and | | | | | | sulci are due | | | | | | toparenchymal volume | | | | | | loss. No abnormal | | | | | | extra-axial | | | | | | fluidcollections are | | | | | | demonstrated. Mastoid | | | | | | air cells and | | | | | | includedparanasal | | | | | | sinuses appear | | | | | | clear.IMPRESSION:No | | | | | | evidence of acute | | | | | | intracranial | | | | | | process.Volume loss | | | | | | greater than expected | | | | | | for patient's age. | | | | + + + + + + + + | Specimen | + + | | + + + +---------+ + + | Performing | Address | City/State/Zipcode | Phone Number | | Organization | | | | + +---------+ + + | [facility] DEPARTMENT OF | | | | | RADIOLOGY | | | | + +---------+ + + documented in this encounter Visit Diagnoses Not on filedocumented in this encounter
--- OUTSIDE RECORDS SUMMARY | ~2019-01-08 | XMS | Encounter Summary ---
Demographics + + + | Address | [address] | | | [place] [address] | + + + | Home Phone | | + + + | Preferred Language | Unknown | + + + | Marital Status | | + + + | Samaritan Affiliation | NON | + + + | Race | White | + + + | Ethnic Group | Not or | + + + Author + + + | Author | [facility] | + + + | Organization | [facility] | + + + | Address | Unknown | + + + | Phone | Unavailable | + + + Support + + +---------+ + | Name | Relationship | Address | Phone | + + +---------+ + | Velma Trejo | ECON | Unknown | | + + +---------+ + Care Team Providers + +------+ + | Care Energy Conservation Technician Name | Role | Phone | + +------+ + | Henry Velazquez | PCP | Unavailable | + +------+ + Reason for Visit + + + | Reason | Comments | + + + | Lab Draw | | + + + Encounter Details +--------+ + + + + | Date | Type | Department | Care Team | Description | +--------+ + + + + | 09/30/ | Telephone | Neurology Movement | Angelina Acosta MD | Lab Draw | | 2007 | | Disorders Clinic | [address] | | | | | [address] | [place], [place] | | | | | Leeann Carney Mailcode: | [address] | | | | | OP[address] Outpatient | [phone] | | | | | Clinic Building | | | | | | [place], [place] | | | | | | [address] | | | | | | [phone] | | | +--------+ + + + [...]
--- OUTSIDE RECORDS SUMMARY | ~2019-01-08 | XMS | Encounter Summary ---
Demographics + + + | Address | [address] | | | [place] [address] | + + + | Home Phone | | + + + | Preferred Language | Unknown | + + + | Marital Status | | + + + | Hinduism Affiliation | NON | + + + | Race | White | + + + | Ethnic Group | Not or | + + + Author + + + | Author | [facility] | + + + | Organization | [facility] | + + + | Address | Unknown | + + + | Phone | Unavailable | + + + Support + + +---------+ + | Name | Relationship | Address | Phone | + + +---------+ + | Velma Trejo | ECON | Unknown | | + + +---------+ + Care Team Providers + +------+ + | Care Packing Machine Tender Name | Role | Phone | + [...] | +--------+ + + + + | 04/23/ | Telephone-S | AntiCoagulation | Shelly Lucero, | Anticoagulant | | 2007 | cheduled | Clinic [address] | [facility] [address] | monitoring | | | | [address] | [address] | | | | | Mailcode: OP03 | [place], [place] | | | | | Outpatient Clinic | [address] | | | | | [place] [address] | [phone] | | | | | [place], [place] | | | | | | [address] | | | | | | [phone] | | | +--------+ + + + [...] | INR (PT), POC | Routin | 04/23/2007 | | Results for this | | | e | | | procedure are in the | | | | | | results section. | + +--------+ + + + documented in this encounter Results INR (PT), POC (04/23/2007) + +-------+ + + + | Component | Value | Ref Range | Performed | Pathologist | | | | | At | Signature | + +-------+ + + + | PROTHROMBIN | 2.6 | | NON [facility] | | | TIME | | | LAB | | | (INR), POC | | | | | + +-------+ + + + + + | Specimen | + + | Blood | + + + +---------+ + + | Performing | Address | City/State/Zipcode | Phone Number | | Organization | | | | + +---------+ + + | NON [facility] | | | | + +---------+ + + documented in this encounter Visit Diagnoses Not on filedocumented in this encounter"
--- OUTSIDE RECORDS SUMMARY | ~2019-01-08 | XMS | Encounter Summary ---
Demographics + + + | Address | [address] | | | [place] [address] | + + + | Home Phone | | + + + | Preferred Language | Unknown | + + + | Marital Status | | + + + | Amish Affiliation | NON | + + + | Race | White | + + + | Ethnic Group | Not or | + + + Author + + + | Author | [facility] | + + + | Organization | [facility] | + + + | Address | Unknown | + + + | Phone | Unavailable | + + + Support + + +---------+ + | Name | Relationship | Address | Phone | + + +---------+ + | Velma Trejo | ECON | Unknown | | + + +---------+ + Care Team Providers + +------+ + | Care Correctional Facility Nurse Name | Role | Phone | + [...] | +--------+ + + + + | 04/15/ | Telephone-S | AntiCoagulation | Shelly Lucero, | Anticoagulant | | 2007 | cheduled | Clinic [address] | AIRCRAFT STRUCTURE MECHANIC [address] | monitoring | | | | [address] | [address] | | | | | Mailcode: OP03 | [place], [place] | | | | | Outpatient Clinic | [address] | | | | | [place] [address] | [phone] | | | | | [place], [place] | | | | | | [address] | | | | | | [phone] | | | +--------+ + + + [...] | INR (PT), POC | Routin | 04/15/2007 | | Results for this | | | e | | | procedure are in the | | | | | | results section. | + +--------+ + + + documented in this encounter Results INR (PT), POC (04/15/2007) + +-------+ + + + | Component | Value | Ref Range | Performed | Pathologist | | | | | At | Signature | + +-------+ + + + | PROTHROMBIN | 3.3 | | NON [facility] | | | [...]
--- OUTSIDE RECORDS SUMMARY | ~2019-01-08 | XMS | Encounter Summary ---
Demographics + + + | Address | [address] | | | [place] [address] | + + + | Home Phone | | + + + | Preferred Language | Unknown | + + + | Marital Status | | + + + | Jain Affiliation | NON | + + + | Race | White | + + + | Ethnic Group | Not or | + + + Author + + + | Author | [facility] | + + + | Organization | [facility] | + + + | Address | Unknown | + + + | Phone | Unavailable | + + + Support + + +---------+ + | Name | Relationship | Address | Phone | + + +---------+ + | Velma Trejo | ECON | Unknown | | + + +---------+ + Care Team Providers + +------+ + | Care Channel Lip Wetter Name | Role | Phone | + +------+ + PCP | Unavailable | + +------+ + Reason for Visit + + + | Reason | Comments | + + + | Bipolar disorder | | + + + Encounter Details +--------+ + + + + | Date | Type | Department | Care Team | Description | +--------+ + + + + | 04/05/ | Telephone | Neurology at | Angelina Acosta MD | Bipolar disorder | | 2007 | | [facility] | [address] | | | | | Healing [address] | [place], [place] | | | | | [address] Mailcode: | [address] | | | | | [address] | [phone] | | | | | Health and Healing, | | | | | | [facility] | | | | | | [place], [place] | | | | | | [address] | | | | | | [phone] | | | +--------+ + + + [...]
--- OUTSIDE RECORDS SUMMARY | ~2019-01-08 | XMS | Encounter Summary ---
Demographics + + + | Address | [address] | | | [place] [address] | + + + | Home Phone | | + + + | Preferred Language | Unknown | + + + | Marital Status | | + + + | Baptism Affiliation | NON | + + + | Race | White | + + + | Ethnic Group | Not or | + + + Author + + + | Author | [facility] | + + + | Organization | [facility] | + + + | Address | Unknown | + + + | Phone | Unavailable | + + + Support + + +---------+ + | Name | Relationship | Address | Phone | + + +---------+ + | Velma Trejo | ECON | Unknown | | + + +---------+ + Care Team Providers + +------+ + | Care Field Administrative Assistant Name | Role | Phone | + [...] | | NEUROLOGY | and Healing, | [place] | | | | | | Building [address], | Research | | | | | | 9th Floor | Center [address] | | | | | | [place], [place] | floor | | | | | | [address] | [place], [place] | | | | | | Phone: | [address] | | | | | | [phone] | Phone: | | | | | | Fax: | [phone] | | | | | | [phone] | Fax: | | | | | | | [phone] | +--------+--------+ + + + + Reason [...] | | | Procedures | REFERRING | [facility] | | | | | CONSULT TO | PROVIDER PER | for Health | | | | | CARDIOLOGY | PT | and Healing, | | | | | | | Building [address], | | | | | | | 9th Floor | | | | | | | [place], [place] | | | | | | | [address] | | | | | | | Phone: | | | | | | | [phone] | | | | | | | Fax: | | | | | | | [phone] | +--------+--------+ + + + + Encounter Details +--------+---------+ + + + | Date | Type | Department | Care Team | Description | +--------+---------+ + + + | 11/06/ | Office | Cardiology [facility] at | [place] | PFO (patent foramen | | 2011 | Visit | [facility] [address] | [facility] | isra) (Primary Dx) | | | | Ave Mailcode: CH[address]A | Road [place], [place] | | | | | [facility] | [address] | | | | | and Healing, | | | | | | | | | | | | [place], [place] | | | | | | [address] | | | | | | [phone] | | | +--------+---------+ + + + [...] heart. She would like to get off [employer] [address] if there is another way. First [...] Cancer Aunt brain Coronary Artery Disease Aunt ID in her 80s Physical Exam: BP 130/80 [...] assessmen t and plan. Trini Mcdowell MD Noc Engineer Pgr [address]13 Cardiology Attending Staff I saw patient with [...] [facility] [address] Mailcode: Ch9a [facility], [address] [facility] [address] documented in this en counter Plan of Treatment Not on filedocumented as of this encounter Visit Diagnoses + + | Diagnosis | + + | PFO (patent foramen ovale) - Primary Ostium secundum type atrial septal defect | + + documented in this encounter
--- OUTSIDE RECORDS SUMMARY | ~2019-01-08 | XMS | Encounter Summary ---
Demographics + + + | Address | [address] | | | [place] [address] | + + + | Home Phone | | + + + | Preferred Language | Unknown | + + + | Marital Status | | + + + | Muslim Affiliation | NON | + + + | Race | White | + + + | Ethnic Group | Not or | + + + Author + + + | Author | [facility] | + + + | Organization | [facility] | + + + | Address | Unknown | + + + | Phone | Unavailable | + + + Support + + +---------+ + | Name | Relationship | Address | Phone | + + +---------+ + | Velma Trejo | ECON | Unknown | | + + +---------+ + Care Team Providers + +------+ + | Care Enrollment Clerk Name | Role | Phone | [...] SW | | | 2011 | | [facility] [address] | [address] | | | | | [place] Mailcode: CH[address] | Road [place], [place] | | | | | [facility] | [address] | | | | | and Healing, | | | | | | | | | | | | [place], [place] | | | | | | [address] | | | | | | [phone] | | | +--------+ + + + [...]
--- OUTSIDE RECORDS SUMMARY | ~2019-01-08 | XMS | Encounter Summary ---
Demographics + + + | Address | [address] | | | [place] [address] | + + + | Home Phone | | + + + | Preferred Language | Unknown | + + + | Marital Status | | + + + | Bahai Affiliation | NON | + + + | Race | White | + + + | Ethnic Group | Not or | + + + Author + + + | Author | [facility] | + + + | Organization | [facility] | + + + | Address | Unknown | + + + | Phone | Unavailable | + + + Support + + +---------+ + | Name | Relationship | Address | Phone | + + +---------+ + | Velma Trejo | ECON | Unknown | | + + +---------+ + Care Team Providers + +------+ + | Care Global Regulatory Lead Name | Role | Phone | + [...] Legs | | 2007 | Visit | [facility] & | [address] | Syndrome; | | | | Healing [address] | [place], [place] | Parkinsonism (HCC) | | | | [address] Mailcode: | [address] | | | | | [facility] | [phone] | | | | | Health and Healing, | | | | | | [facility] | | | | | | [place], [place] | | | | | | [address] | | | | | | [phone] | | | +--------+---------+ + + + [...] 2 children 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 | | + + + + + + + + | Performing | Address | City/State/Zipcode | Phone Number | | Organization | | | | + + + + + | [facility] | [address] | [place] [address] | | | LABORATORY | | | [...] RLB ([facility]) | | | [facility] [address] [facility] | | | [place] [address] | | + + + + + + + + | Performing | Address | City/State/Zipcode | Phone Number | | Organization | | | | + + + + + | [facility] | [address] | [place] [address] | | | LABORATORY | | | | + + + + + documented in this encounter Visit Diagnoses + + | Diagnosis | + + | Restless legs syndrome Restless legs syndrome (RLS) | + + | Parkinsonism (HCC) Paralysis agitans | + + documented in this encounter
--- OUTSIDE RECORDS SUMMARY | ~2019-01-08 | XMS | Encounter Summary ---
Demographics + + + | Address | [address] | | | [place] [address] | + + + | Home Phone | | + + + | Preferred Language | Unknown | + + + | Marital Status | | + + + | Buddhism Affiliation | NON | + + + | Race | White | + + + | Ethnic Group | Not or | + + + Author + + + | Author | [facility] | + + + | Organization | [facility] | + + + | Address | Unknown | + + + | Phone | Unavailable | + + + Support + + +---------+ + | Name | Relationship | Address | Phone | + + +---------+ + | Velma Trejo | ECON | Unknown | | + + +---------+ + Care Team Providers + +------+ + | Care Sleeping Bag Filler Name | Role | Phone | + [...] | | 2006 | Only | [address] [facility] | [phone] | | | | | [address] | | | | | | [place], [place] | | | | | | [address] | | | +--------+ + + + [...] DEPT OF | [address] | [place], [place] | | | CARDIOLOGY | [address] | [address] | | + + + + + | [facility] | [address] | [place], [place] | | | CARDIOLOGY | [address] [facility] | [address] | | + + + + + documented in this encounter Visit Diagnoses Not on filedocumented in this encounter"
--- OUTSIDE RECORDS SUMMARY | ~2019-01-08 | XMS | Encounter Summary ---
Demographics + + + | Address | [address] | | | [place] [address] | + + + | Home Phone | | + + + | Preferred Language | Unknown | + + + | Marital Status | | + + + | Mormon Affiliation | NON | + + + | Race | White | + + + | Ethnic Group | Not or | + + + Author + + + | Author | [facility] | + + + | Organization | [facility] | + + + | Address | Unknown | + + + | Phone | Unavailable | + + + Support + + +---------+ + | Name | Relationship | Address | Phone | + + +---------+ + | Velma Trejo | ECON | Unknown | | + + +---------+ + Care Team Providers + +------+ + | Care Gambreler Helper Name | Role | Phone | + [...] | +--------+ + + + + | 04/30/ | Telephone-S | AntiCoagulation | Shelly Lucero, | Anticoagulant | | 2007 | cheduled | Clinic [address] | ORDER DESK CLERK [address] | monitoring | | | | [address] | [address] | | | | | Mailcode: OP03 | [place], [place] | | | | | Outpatient Clinic | [address] | | | | | [place] [address] | [phone] | | | | | [place], [place] | | | | | | [address] | | | | | | [phone] | | | +--------+ + + + [...]
--- OUTSIDE RECORDS SUMMARY | ~2019-01-08 | XMS | Encounter Summary ---
Demographics + + + | Address | [address] | | | [place] [address] | + + + | Home Phone | | + + + | Preferred Language | Unknown | + + + | Marital Status | | + + + | Alevism Affiliation | NON | + + + [...] Team Providers + +------+ + | Care Digital Marketing Analyst Name | Role | Phone | + [...] Description | +--------+---------+ + + + | 04/11/ | Office | AntiCoagulation | Shelly Lucero, | Atrial Septal | | 2007 | Visit | Clinic [address] | INFORMATION RECEPTIONIST [address] | Aneurysm; Encounter | | | | [address] | [address] | for Long-Term | | | | Mailcode: OP03 | [place], [place] | (Current) Use of | | | | Outpatient Clinic | [address] | Anticoagulants | | | | [place] [address] | [phone] | | | | | [place], [place] | | | | | | [address] | | | | | | [phone] | | | +--------+---------+ + + + [...] + + documented as of this encounter Progress Notes Charlotte Red 04/11/2007 8:55 AM PSTMet with Sana Garcia and her daughter in clini c for anticoagulation monitoring. Anticoag focused exam assessed and negative except as noted on documentation flowsheet. Rep orts started phenergan yesterday. PATIENT COUNSELING AND EDUCATION REGARDING: Importance of notifying clinic of health status change(s) Factors influencing, anticoagulation: (diet, ETOH, activity, health, OTCs, herbs) ASSESSMENT AND PLAN: Therapeutic -plan to decrease warfarin dose to keep in range. To get ensure, one can daily while food intake decreased. Leaving to return home, to have inr done at [facility] on M on, Apr 15. documented in this encoun ter Plan of Treatment Not on filedocumented as of this encounter Procedures + +--------+ + + + | Procedure Name | Priori | Date/Time | Associated Diagnosis | Comments | | | ty | | | | + +--------+ + + + | INR (PT), POC | Routin | 04/11/2007 | Atrial Septal | Results for this | | | e | 8:15 AM | Aneurysm Encounter | procedure are in the | | | | PST | for Long-Term | results section. | | | | | (Current) Use of | | | | | | Anticoagulants | | + +--------+ + + + documented in this encounter Results INR (PT), POC (04/11/2007 8:15 AM PST) + +-------+ + + + | Component | Value | Ref Range | Performed | Pathologist | | | | | At | Signature | + +-------+ + + + | PROTHROMBIN | 2.8 | | [facility] | | | TIME [...] | + + + + + | NATALIE BABCOCK | [address] [facility] [address] | [place], [place] | | | [facility] | [facility] | [address] | | | TESTS | | | | + + + + + | [facility] | [address] | [place], [place] | | | TESTS | [facility] | [address] | | + + + + + documented in this encounter Visit Diagnoses + + | Diagnosis | + + | Atrial septal aneurysm Aneurysm of heart (wall) | + + | intermediate manager (current) use of anticoagulants Long-term (current) use of anticoagulants | + + documented in this encounter"
--- OUTSIDE RECORDS SUMMARY | ~2019-01-08 | XMS | Encounter Summary ---
Demographics + + + | Address | [address] | | | [place] [address] | + + + | Home Phone | | + + + | Preferred Language | Unknown | + + + | Marital Status | | + + + | Religion Affiliation | NON | + + + | Race | White | + + + | Ethnic Group | Not or | + + + Author + + + | Author | [facility] | + + + | Organization | [facility] | + + + | Address | Unknown | + + + | Phone | Unavailable | + + + Support + + +---------+ + | Name | Relationship | Address | Phone | + + +---------+ + | Velma Trejo | ECON | Unknown | | + + +---------+ + Care Team Providers + +------+ + | Care Detective Captain Name | Role | Phone | + +------+ + | Jaime Irizarry DO | PCP | Unavailable | + +------+ + Reason for Referral Diagnostic Testing (Routine) +--------+--------+ + + + + | Status | Reason | Specialty | Diagnoses / | Referred By | Referred To | | | | | Procedures | Contact | Contact | +--------+--------+ + + + + | Closed | | Cardiology | Diagnoses | Broberg, | Car Echo | | | | | Atrial | Rajinder Wong MD | [facility] [address] | | | | | septal | [address] | | | | | aneurysm | [address] | Mailcode: | | | | | Procedures | [place], [place] | [facility] | | | | | TRANSTHORACI | [address] | for Health | | | | | C | Phone: | and Healing, | | | | | ECHOCARDIOGR | [phone] | [address] | | | | | AM, ADULT | Fax: | [place], [place] | | | | | | [phone] | [address] | | | | | | | Phone: | | | | | | | [phone] | +--------+--------+ + + + + Encounter Details +--------+ + + + + | Date | Type | Department | Care Team | Description | +--------+ + + + + | 09/17/ | Rack Loader | Cardiology [facility] at | Rajinder Hogan, | Atrial septal | | 2011 | | [facility] [address] | MD [address] | aneurysm (Primary | | | | Ave Mailcode: [facility] | [place], [place] | Dx) | | | | [facility] | [address] | | | | | and Healing, | [phone] | | | | | | | | | | | Floor [place], [place] | | | | | | [address] | | | | | | [phone] | | | +--------+ + + + [...] | + +--------+ + + + | TRANSTHORACIC | Routin | 11/06/2011 | Atrial septal | Results for this | | ECHOCARDIOGRAM, | e | 12:00 AM | aneurysm | procedure are in the | | ADULT | | PDT | | results section. | + +--------+ + + + documented in this encounter Results TRANSTHORACIC ECHOCARDIOGRAM, ADULT (11/06/2011 12:00 AM PDT) + + + | Narrative | Performed At | + + + | | | + + + + + | Transcriptions | + + | Arthur Ramirez - 11/06/2011 5:01 PM PDT | + + documented in this encounter Visit Diagnoses + + | Diagnosis | + + | Atrial septal aneurysm - Primary Aneurysm of heart (wall) | + + documented in this encounter"
--- OUTSIDE RECORDS SUMMARY | ~2019-01-08 | XMS | Clinical Summary ---
Demographics + + + | Address | [address] | | | [place] [address] | + + + | Home Phone | | + + + | Preferred Language | Unknown | + + + | Marital Status | | + + + | Congregation Affiliation | 1077 | + + + | Race | Unknown | + + + | Ethnic Group | Unknown | + + + Author + + + | Author | [facility] | | | and [place] | + + + | Organization | [facility]erg[facility] | | | and [place] | + + + | Address | Unknown | + + + | Phone | Unavailable | + + + Support + + + + + | Name | Relationship | Address | Phone | + + + + + | Mario Garcia ECON | [address] | | | | | [place] | | | | | [address] | | + + + + + Care Team Providers + +------+ + | Care Fast Food Supervisor Name | Role | Phone | + +------+ + | Jaime Irizarry DO | PCP | | + +------+ + Allergies + + + + + + | Active Allergy | Reactions | Severity | Noted | Comments | | | | | Date | | + + + + + + | Codeine | Nausea And Vomiting | | 12/15/20 | | | | | | 15 | | + + + + + + | Meperidine | Nausea And Vomiting | | 12/20 | | | | | | 15 | | + + + + + + | Tramadol | | | 20 | | | | | | 15 | | + + + + + + Medications + + + +---------+------+------+-------+ | Medication | Sig | Dispensed | Refills | Star | End | Statu | | | | | | t | Date | s | | | | | | Date | | | + + + +---------+------+------+-------+ | | Take 1 capsule by | | 0 | | | Activ | | amLODIPine-benazepri | mouth Daily. | | | | | e | | l (LOTREL) 5-20 MG | | | | | | | | per capsule | | | | | | | + + + +---------+------+------+-------+ | gabapentin | Take 600 mg by mouth | | 0 | | | Activ | | (NEURONTIN) 600 MG | Daily. | | | | | e | | tablet | | | | | | | + + + +---------+------+------+-------+ | potassium chloride | Take 20 mEq by mouth | | 0 | | | Activ | | 20 mEq CR tablet | 2 times daily. | | | | | e | + + + +---------+------+------+-------+ | L-Methylfolate 15 | Take by mouth | | 0 | | | Activ | | MG TABS | Daily. 04/03 to 1 | | | | | e | | | tablet daily | | | | | | + + + +---------+------+------+-------+ | pregabalin | Take 100 mg by | | 0 | | | Activ | | (LYRICA) 100 mg | mouth. One capsule | | | | | e | | capsule | at suppertime and | | | | | | | | 1-2 capsules at | | | | | | | | bedtime | | | | | | + + + +---------+------+------+-------+ | traZODone | Take 100 mg by mouth | | 0 | | | Activ | | (DESYREL) 100 mg | nightly. | | | | | e | | tablet | | | | | | | + + + +---------+------+------+-------+ | metoprolol | Take 200 mg by mouth | | 0 | | | Activ | | succinate | Daily. | | | | | e | | (TOPROL-XL) 200 mg | | | | | | | | ER tablet | | | | | | | + + + +---------+------+------+-------+ | fenofibric acid | Take 135 mg by mouth | | 0 | | | Activ | | (TRILIPIX) [address] | Daily. | | | | | e | | capsule | | | | | | | + + + +---------+------+------+-------+ | | Take 1 tablet by | | 0 | | | Activ | | HYDROcodone-acetamin | mouth nightly as | | | | | e | | ophen (NORCO) 5-325 | needed for Pain. | | | | | | | mg per tablet | | | | | | | + + + +---------+------+------+-------+ | UNABLE TO FIND | Daily. Med Name: | | 0 | | | Activ | | | Donavon Cellular | | | | | e | | | rejuvanation formula | | | | | | + + + +---------+------+------+-------+ | niacin 500 mg | Take 500 mg by mouth | | 0 | | | Activ | | tablet | daily (with | | | | | e | | | breakfast). | | | | | | + + + +---------+------+------+-------+ | L-Methylfolate | Take 7.5 mg by mouth | | 0 | | | Activ | | (DEPLIN) 7.5 MG TABS | Daily. | | | | | e | + + + +---------+------+------+-------+ | valACYclovir | Take 500 mg by mouth | | 0 | | | Activ | | (VALTREX) 500 mg | Daily. | | | | | e | | tablet | | | | | | | + + + +---------+------+------+-------+ | cholecalciferol | Take 5,000 Units by | | 0 | | | Activ | | (VITAMIN D-3) 5000 | mouth Daily. | | | | | e | | units TABS | | | | | | | + + + +---------+------+------+-------+ | Cyanocobalamin | Place under the | | 0 | | | Activ | | (B-12) 5000 MCG SUBL | tongue Daily. | | | | | e | + + + +---------+------+------+-------+ | [place]-3 Fatty | Take 300 mg by mouth | | 0 | | | Activ | | Acids (OMEGA-3 FISH | 3 times daily. | | | | | e | | OIL PO) | | | | | | | + + + +---------+------+------+-------+ | Multiple | Take by mouth | | 0 | | | Activ | | Vitamins-Minerals | Daily. | | | | | e | | (OCUVITE PO) | | | | | | | + + + +---------+------+------+-------+ | UNABLE TO FIND | Daily. Med Name: | | 0 | | | Activ | | | Human Growth Hormone | | | | | e | + + + +---------+------+------+-------+ | aspirin (ADULT | Take 1 tablet by | | 0 | 02/2 | | Activ | | ASPIRIN EC LOW | mouth Daily. | | | 4/20 | | e | | STRENGTH) 81 MG EC | | | | 16 | | | | tablet | | | | | | | + + + +---------+------+------+-------+ Active Problems + + + | Problem | Noted Date | + + + | HTN (hypertension) | | + + + | Hyperlipidemia | | + + + | Cardiomegaly | | + + + + + | Overview: | + + + +---+ | LVH (left ventricular hypertrophy) | | + +---+ | PFO (patent foramen ovale) | | + +---+ + + | Overview: Echocardiogram from 03/11/10 shows Hx PFO. On this | | study, PFO flow not obviously apparent, but intra-Atrial septum | | has hyper-mobility, Qp/Qs: 1.1 2. LV dimensions and systolic | | function NML, Grade I diastolic abnormality, EF >65-70%. Mild | | LAE. RV mildly enlarged, systolic function NML. RA NML. 3. Valves | | grossly NML. Mild MR, trace TR, trace PI. 4. No Pericardial | | effusion. (In Care Everywhere). | + + Family History + +------+ + + | Relation | Name | Status | Comments | + +------+ + + | Brother | 1/2 | Alive | | + +------+ + + | Father | | Alive | Malignant brain tumor | | | | (Age 62) | | + +------+ + + | Mother | | | unknown history | + +------+ + + | Sister | 1/2 | Alive | | + +------+ + + Social History + +-------+ +--------+------+ [...] + +---------+ + | Alcohol Use | Drinks/We | oz/Week | Comments | | | ek | | | + + +---------+ + | No | 0 | 0.0 | | | | Standard | | | | | drinks or | | | | | | | | | | equivalen | | | | | t | | | + + +---------+ + [...] recent travel history available. | + + Last Filed Vital Signs + + + + | Vital Sign | Reading | Time Taken | + + + + | Blood Pressure | 130/86 | 05/26/2015 1554 PST | + + + + | Pulse | 72 | 05/26/2015 1554 PST | + + + + | Temperature | - | - | + + + + | Respiratory Rate | 16 | 05/26/2015 1554 PST | + + + + | Oxygen Saturation | - | - | + + + + | Inhaled Oxygen | - | - | | Concentration | | | + + + + | Weight | 78 kg (172 lb) | 05/26/20151553 PST | + + + + | Height | 167.6 cm (5' 6") | 05/26/20151553 PST | + + + + | Body Mass Index | 27.76 | 05/26/20151553 PST | + + + + Plan of Treatment + + + + + | Health Maintenance | Due Date | Last Done | Comments | + + + + + | Vaccine: | | | | | Dtap/Tdap/Td (1 - | 7 | | | | Tdap) | | | | + + + + + | Vaccine: Zoster (1 | | | | | of 2) | 8 | | | + + + + + | Breast Cancer | | | | | Screening | 3 | | | + + + + + | Vaccine: | | | | | Pneumococcal 65+ | 3 | | | | Low/Medium Risk (1 | | | | | of 2 - PCV13) | | | | + + + + + | Vaccine: Influenza | | | | | (#1) | 9 | | | + + + + + Results Not on filefrom Last 3 Months Insurance + +--------+ +--------+-------+---------+--------+ | Payer | Benefi | Subscriber | Effect | Phone | Address | Type | | | t Plan | ID | amy | | | | | | / | | Dates | | | | | | Group | | | | | | + +--------+ +--------+-------+---------+--------+ | [employer] MEDICARE | [employer] | [id number] | 04/02/19 | | | Medica | | | HEALTH | | 16-Pre | | | re | | | MDCR | | sent | | | | + +--------+ +--------+-------+---------+--------+ + +--------+ +--------+ + + | Guarantor Name | Accoun | Relation to | Date | Phone | Billing Address | | | t Type | Patient | of | | | | | | | | | | + +--------+ +--------+ + + | Sana Garcia | Person | Self | [birth year] | [address] | | [address] | | 1950 | [phone] | [place] [address] | | | mahad | | | [address] (Home) | | + +--------+ +--------+ + + Advance Directives Patient has advance care planning documents on file. For more information, please contact:[facility] and [facility] [place] [address]
--- OUTSIDE RECORDS SUMMARY | ~2019-01-08 | XMS | Encounter Summary ---
Demographics + + + | Address | [address] | | | [place] [address] | + + + | Home Phone | | + + + | Preferred Language | Unknown | + + + | Marital Status | | + + + | Anglican Affiliation | NON | + + + [...] Team Providers + +------+ + | Care Safety Sealer Name | Role | Phone | + +------+ + PCP | Unavailable | + +------+ + Reason for Visit + + + | Reason | Comments | + + + | Refill Request | | + + + Encounter Details +--------+--------+ + + + | Date | Type | Department | Care Team | Description | +--------+--------+ + + + | 03/28/ | Refill | Neurology at | Angelina Acosta MD | Refill Request | | 2006 | | [facility] & | [address] | | | | | Healing [address] | [place], [place] | | | | | [address] Mailcode: | [address] | | | | | [address] | [phone] | | | | | Health and Healing, | | | | | | [facility] | | | | | | [place], [place] | | | | | | [address] | | | | | | [phone] | | | +--------+--------+ + + + Social History + +-------+ [...]
--- OUTSIDE RECORDS SUMMARY | ~2019-01-08 | XMS | Encounter Summary ---
Demographics + + + | Address | [address] | | | [place] [address] | + + + | Home Phone [...] Team Providers + +------+ + | Care Operator Technician Name | Role | Phone | + +------+ + PCP | Unavailable | + +------+ + Reason for Visit + + + | Reason | Comments | + + + | New patient | | | consultation | | + + + | PD - Parkinson's | | | disease | | + + + Consultation (Routine) +--------+ + + + + + | Status | Reason | Specialty | Diagnoses / | Referred By | Referred To | | | | | Procedures | Contact | Contact | +--------+ + + + + + | Closed | Specialty | Neurology | Diagnoses | Hernán, | Dave, | | | Services | | parkinsons | Osiel Petit MD | Angelina Berg MD | | | Required | | typed | Chanel Buchanan | [address] | | | | | difficulties | Internal | Ave | | | | | | Medicine [address] | [place], [place] | | | | | | [address] | [address] | | | | | | Chanel Buchanan, | Phone: | | | | | | [place] [address] | [phone] | | | | | | Phone: | Fax: | | | | | | [phone] | [phone] | | | | | | Fax: | | | | | | | [phone] | | +--------+ + + + + + Encounter Details +--------+---------+ + + + | Date | Type | Department | Care Team | Description | +--------+---------+ + + + | 01/14/ | Office | Neurology at | Angelina Acosta MD | Parkinsonism (HCC) | | 2006 | Visit | [facility] & | [address] | (Primary Dx) | | | | Healing [address] | [facility] [place] | | | | | [address] Mailcode: | [address] | | | | | [facility] | [phone] | | | | | Health and Healing, | | | | | | [facility] | | | | | | [place], [place] | | | | | | [address] | | | | | | [phone] | | | +--------+---------+ + + + [...] + + + | Blood Pressure | 127/80 | 01/14/2007 1:14 PM | | | | | PDT | | + + + + + | Pulse | 76 | 01/14/2007 1:14 PM | | | | | PDT | | + + + + + | Temperature | - | - | | + + + + + | Respiratory Rate | 16 | 01/14/2007 1:13 PM | | | | | PDT | | + + + + + | Oxygen Saturation | - | - | | + + + + + | Inhaled Oxygen | - | - | | | Concentration | | | | + + + + + | Weight | 83.9 kg (185 lb) | 01/14/2007 1:13 PM | | | | | PDT | | + + + + + | Height | 170.2 cm (5' 7") | 01/14/2007 1:13 PM | | | | | PDT | | + + + + + | Body Mass Index | 28.98 | 01/14/2007 1:13 PM | | | | | PDT | | + + + + + documented in this encounter Progress Notes Angelina Centeno - 01/14/2007 2:01 PM PDTCC: Tremor and parkinsonism. HPI: 56 yo RH woman with tremor in left hand and complaints of slowness in getting dressed. Patient states symptoms have been present for at least 1 1/2 to 2 years. Patient does not correlate them to starting new medications. Patient was told previously that she might hav e parkinsonism secondary to medications and more recently possibly idiopathic PD. Stopped S eroquel around May of 2006 and stopped Abilify for a couple months was back on recently and then stopped again with no clear change in her symptoms. 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 The pt's highest level of education is some college FamHx: Aunt had PD Father at 62 yo from alcoholic, malignant brain tumor, HTN, heart problems Mother had mental problems, patient did not know her well Siblings medical history is significant for metal problems also Children are healthy Current outpatient prescriptions : Metoprolol Succinate (TOPROL XL) 200 mg Oral Tablet Sust ained Release 24 hr, take 1 tablet (200 mg) by oral route once daily, Disp: , Rfl: Dipyridamole-Aspirin (AGGRENOX) 200-25 mg Oral Cap, Multiphasic Release 12 hr, take 1 capsu le by oral route 2 times per day in the morning and evening, Disp: , Rfl: Clonazepam 2 mg Oral Tablet, take 1 tablet (2 mg) by oral route 1 times per day, Disp: , Rf l: KLOR-CON M20 ORAL, 1 tab daily, Disp: , Rfl: Niacin (Antihyperlipidemic) (NIASPAN) 500 mg Oral Tablet Sustained Release, take 1 tablet ( 500 mg) by oral route twice daily , Disp: , Rfl: Amlodipine-Benazepril 5-20 mg Oral Capsule, take 1 capsule by oral route once daily, Disp: , Rfl: Hydrocodone-Acetaminophen (VICODIN ES) 7.5-750 mg Oral Tablet, take 1 tablet by oral route every 4 hours as needed for pain not to exceed 5 tablets per day, Disp: , Rfl: Gemfibrozil 600 mg Oral Tablet, take 1 tablet (600 mg) by oral route 2 times per day 30 min utes before morning and evening meal, Disp: , Rfl: Aripiprazole (ABILIFY) 10 mg Oral Tablet, take 1 tablet (10 mg) by oral route once daily, D isp: , Rfl: Pregabalin (LYRICA) 50 mg Oral Capsule, take 1 capsule (50 mg) by oral route 3 times per da y, Disp: , Rfl: PE: BP 127/80, Pulse 76, RR 16, Ht 170.2 cm (5' 7")( < 3 %ile), Wt 83.915 kg (185 lbs)( < 3 %il e). GA: awake, alert, very masked facies and slow, NAD. MS: answers questions appropriately, draws clock well, speech is slow and monotone CN: 2-12 intact, except for left lower quadrant field cut Motor: 5/5 throughout, mildly increased tone upper extremities lt slightly greater then rt Sens: intact st, vib, temp in toes Reflexes: 2+ throughout, toes equivocal bilaterally Coor: slowed KRISTI with decreased amplitude bilaterally, symmetrically in upper and lower ext remities. Gait: very reduced arm swing bilaterally, tremor in rt hand and then very briefly in left, shuffling step, en bloc turn, mild freezing on turn. Takes about 4 steps back on pull test. A/P: 56 yo women with parkinsonism. Differential is drug induced versus idiopathic Duarte on's Disease. The patient feels very disabled by here symptoms and did opt for a trial of S inemet after extensive discussion. With her psychiatric history and memory complaints I do n ot think a trial of a dopamine agonist is appropriate. 1. Try to stay off of Ability - Seroquel would be a better option is one is needed. I will contact her psychiatric nurse to discuss this. 2. Trial of Sinemet 25/100 work up to TID. 3. I will see her back in about 4 months and see how she is doing. If she improves off the Abilify it would be reasonable to consider tapering the Sinemet. Over 80 minutes was spent with the patient and more then half the time was in counseling an d discussion about her medical diagnosis and treatment. This patient seen and examined by Dr. Prince who agrees with the above assessment and plan . Velma Yost - 01/14/2007 12:57 PM PDTHigh profile issues in pre-visit paperwork: --Falls - n/a --Memory/cognition issues - yes REGLA-D (16 and above is clinically significant): 30* [place] (10 and above is clinically significant): 18* CG Strain (30 and above is clinically significant): N/a Velma Jones RN documented in this encounter Plan of Treatment Not on filedocumented as of this encounter Visit Diagnoses + + | Diagnosis | + + | Parkinsonism (HCC) - Primary Paralysis agitans | + + documented in this encounter
--- OUTSIDE RECORDS SUMMARY | ~2019-01-08 | XMS | Encounter Summary ---
Demographics + + + | Address | [address] | | | [place] [address] | + + + | Home Phone | | + + + | Preferred Language | Unknown | + + + | Marital Status | | + + + | Muslim Affiliation | NON | + + + | Race | White | + + + | Ethnic Group | Not or | + + + Author + + + | Author | [facility] | + + + | Organization | [facility] | + + + | Address | Unknown | + + + | Phone | Unavailable | + + + Support + + +---------+ + | Name | Relationship | Address | Phone | + + +---------+ + | Velma Trejo | ECON | Unknown | | + + +---------+ + Care Team Providers + +------+ + | Care Ec Teacher Name | Role | Phone | + [...] cheduled | Clinic [address] | [employer] [address] | monitoring | | | | [address] | [address] | | | | | Mailcode: OP03 | [place], [place] | | | | | Outpatient Clinic | [address] | | | | | [place] [address] | [phone] | | | | | [place], [place] | | | | | | [address] | | | | | | [phone] | | | +--------+ + + + [...]
--- OUTSIDE RECORDS SUMMARY | ~2019-01-08 | XMS | Clinical Summary ---
Demographics + + + | Address | [address] | | | [place] [address] | + + + | Home Phone | | + + + | Preferred Language | Unknown | + + + | Marital Status | | + + + | Christianity Affiliation | NON | + + + | Race | White | + + + | Ethnic Group | Not or | + + + Author + + + | Author | [facility] | + + + | Organization | [facility] | + + + | Address | Unknown | + + + | Phone | Unavailable | + + + Support + + +---------+ + | Name | Relationship | Address | Phone | + + +---------+ + | Velma Trejo | ECON | Unknown | | + + +---------+ + Care Team Providers + +------+ + | Care Deer Farmer Name | Role | Phone | + +------+ + | Jaime Irizarry DO | PCP | Unavailable | + +------+ + Source Comments [facility] is fully live on both EpicCare Ambulatory and EpicCare InPatient.[facility] Allergies + + + + + + | Active Allergy | Reactions | Severity | Noted | Comments | | | | | Date | | + + + + + + | Codeine | | | 11/07/19 | | | | | | 12 | | + + + + + + | Meperidine (Pf) | | High | 01/11/20 | | | | | | 07 | | + + + + + + Medications + + + +---------+------+------+-------+ | Medication | Sig | Dispensed | Refills | Star | End | Statu | | | | | | t | Date | s | | | | | | Date | | | + + + +---------+------+------+-------+ | Metoprolol | take 1 tablet (200 | | 0 | | | Activ | | Succinate (TOPROL | mg) by oral route | | | | | e | | XL) 200 mg Oral | once daily | | | | | | | Tablet Sustained | | | | | | | | Release 24 hr | | | | | | | + + + +---------+------+------+-------+ | Niacin | take 1 tablet (500 | | 0 | | | Activ | | (Antihyperlipidemic) | mg) by oral route | | | | | e | | (NIASPAN) 500 mg | twice daily | | | | | | | Oral Tablet | | | | | | | | Sustained Release | | | | | | | + + + +---------+------+------+-------+ | | take 1 capsule by | | 0 | | | Activ | | Amlodipine-Benazepri | oral route once | | | | | e | | l 5-20 mg Oral | daily | | | | | | | Capsule | | | | | | | + + + +---------+------+------+-------+ | pregabalin | Take 50 mg by mouth | | 0 | | | Activ | | (LYRICA) 50 mg Oral | once daily at | | | | | e | | Capsule | bedtime. Max: 600 | | | | | | | | mg/day | | | | | | + + + +---------+------+------+-------+ | Fenofibric Acid | Take 135 mg by mouth | | 0 | | | Activ | | (TRILIPIX) 135 mg | once daily. | | | | | e | | Oral Capsule, | | | | | | | | Delayed | | | | | | | | Release(E.C.) | | | | | | | + + + +---------+------+------+-------+ | warfarin 4 mg Oral | Take 4 mg by mouth | | 0 | | | Activ | | Tablet | once daily. | | | | | e | + + + +---------+------+------+-------+ | potassium chloride | Take 20 mEq by mouth | | 0 | | | Activ | | SR 20 mEq Oral | two times daily. | | | | | e | | Tablet, ER | | | | | | | | Particles/Crystals | | | | | | | + + + +---------+------+------+-------+ | L-LYSINE ORAL | Take 1,000 mg by | | 0 | | | Activ | | | mouth two times | | | | | e | | | daily. | | | | | | + + + +---------+------+------+-------+ | MULTIVITAMIN ORAL | Take by mouth once | | 0 | | | Activ | | | daily. | | | | | e | + + + +---------+------+------+-------+ Active Problems + + + | Problem | Noted Date | + + + | Atrial septal aneurysm | 04/08/2007 | + + + | intermediate frame tender current use of anticoagulant therapy | 04/08/2007 | + + + + + | Overview: Target INR 2.0-3.0 | | ICD10 | + + Family History + + +------+ + | Medical History | Relation | Name | Comments | + + +------+ + | Cancer | Aunt | | brain | + + +------+ + | Coronary Artery | Aunt | | [place] in her 80s | | Disease | | | | + + +------+ + | Cancer | Father | | brain, age 62 | + + +------+ + | Coronary Artery | Father | | CABG | | Disease | | | | + + +------+ + | Stroke | Father | | | + + +------+ + + +------+--------+ + | Relation | Name | Status | Comments | + +------+--------+ + | Aunt | | | | + +------+--------+ + | Father | | | | + +------+--------+ + Social History + +-------+ +--------+------+ | [...] | | + + + + + Plan of Treatment + + + + + | Health Maintenance | Due Date | Last Done | Comments | + + + + + | Pneumococcal | | | | | vaccination (1 of 2 | 3 | | | | - PCV13) | | | | + + + + + | Influenza (Flu) | | | | | vaccination (#1) | 9 | | | + + + + + Results Not on filefrom Last 3 Months Insurance + +--------+ +--------+ + +------+ | Payer | Benefi | Subscriber | Effect | Phone | Address | Type | | | t Plan | ID | amy | | | | | | / | | Dates | | | | | | Group | | | | | | + +--------+ +--------+ + +------+ | [employer] MEDICARE | MODA | xxxxxxxxx | 07/02/19 | [phone] | [address] | PPO | | | MEDICA | | 07-Pre | 4 | [address] | | | | RE PPO | | sent | | [place], | | | | | | | | [place] [address] | | + +--------+ +--------+ + +------+ + +--------+ +--------+ + + | Guarantor Name | Accoun | Relation to | Date | Phone | Billing Address | | | t Type | Patient | of | | | | | | | | | | + +--------+ +--------+ + + | Sana Garcia | Person | Self | [birth year] | [address] | | | al/Fam | | 1950 | [phone] | [place] [address] | | | mahad | | | 9 (Home) | | + +--------+ +--------+ + +
--- OUTSIDE RECORDS SUMMARY | ~2019-01-08 | XMS | Encounter Summary ---
Demographics + + + | Address | [address] | | | [place] [address] | + + + | Home Phone | | + + + | Preferred Language | Unknown | + + + | Marital Status | | + + + | Synagogue Affiliation | NON | + + + | Race | White | + + + | Ethnic Group | Not or | + + + Author + + + | Author | [facility] | + + + | Organization | [facility] | + + + | Address | Unknown | + + + | Phone | Unavailable | + + + Support + + +---------+ + | Name | Relationship | Address | Phone | + + +---------+ + | Velma Trejo | ECON | Unknown | | + + +---------+ + Care Team Providers + +------+ + | Care Electric Frying Pan Repairer Name | Role | Phone | + +------+ + PCP | Unavailable | + +------+ + Reason for Visit + + + | Reason | Comments | + + + | Parkinsonism | | + + + Encounter Details +--------+ + + + + | Date | Type | Department | Care Team | Description | +--------+ + + + + | 01/16/ | Telephone | Neurology at | Angelina Acosta MD | Parkinsonism | | 2006 | | [facility] & | [address] | | | | | [address] | [place], [place] | | | | | [address] Mailcode: | [address] | | | | | [address] | [phone] | | | | | Health and Healing, | | | | | | [facility] | | | | | | Floor [place], [place] | | | | | | [address] | | | | | | [phone] | | | +--------+ + + + [...]
--- OUTSIDE RECORDS SUMMARY | ~2019-01-08 | XMS | Encounter Summary ---
Demographics + + + | Address | [address] | | | [place] [address] | + + + | Home Phone | | + + + | Preferred Language | Unknown | + + + | Marital Status | | + + + | Buddhist Affiliation | NON | + + + | Race | White | + + + | Ethnic Group | Not or | + + + Author + + + | Author | [facility] | + + + | Organization | [facility] | + + + | Address | Unknown | + + + | Phone | Unavailable | + + + Support + + +---------+ + | Name | Relationship | Address | Phone | + + +---------+ + | Velma Trejo | ECON | Unknown | | + + +---------+ + Care Team Providers + +------+ + | Care Auto Porter Name | Role | Phone | + +------+ + | Jaime Irizarry DO | PCP | Unavailable | + +------+ + Encounter Details +--------+ + + + + | Date | Type | Department | Care Team | Description | +--------+ + + + + | 01/02/ | Ancillary | Registration [id number] | | | | 2006 | Registratio | [address] | | | | | n | [address] Mailcode: [id number] | | | | | | [place], [place] | | | | | | [address] | | | | | | [phone] | | | +--------+ + + + [...]
--- OUTSIDE RECORDS SUMMARY | ~2019-01-08 | XMS | Clinical Summary ---
Demographics + + + | Address | [address] | | | [place] [address] | + + + | Home Phone | | + + + | Preferred Language | Unknown | + + + | Marital Status | | + + + | Mormonism Affiliation | 1077 | + + + | Race | Unknown | + + + | Ethnic Group | Unknown | + + + Author + + + | Author | [facility] | | | and [place] | + + + | Organization | [facility] | | | and [place] [...] [place] | | | | | [address] | | + + + + + Care Team Providers + +------+ + | Care Crusher Loader Operator Name | Role | Phone | + [...] e | + + + +---------+------+------+-------+ | Barron-3 Fatty | Take 300 mg by mouth [...] | | | + +--------+ +--------+-------+---------+--------+ | [employer] MEDICARE | MODA | [id number] | 04/02/19 | | | Medica | [...] | 1950 | [phone] | [place] [address] | | | [place] | | | 7 (Home) | | + +--------+ +--------+ + + Advance Directives Patient has advance care planning documents on file. For more information, please contact:[facility] [place] [address]
--- OUTSIDE RECORDS SUMMARY | ~2019-01-08 | XMS | Encounter Summary ---
Demographics + + + | Address | [address] | | | [place] [address] | + + + | Home Phone | | + + + | Preferred Language | Unknown | + + + | Marital Status | | + + + | Jew Affiliation | NON | + + + | Race | White | + + + | Ethnic Group | Not or | + + + Author + + + | Organization | Unknown | + + + | Address | Unknown | + + + | Phone | Unavailable | + + + Support + + +---------+ + | Name | Relationship | Address | Phone | + + +---------+ + | Velma Trejo | ECON | Unknown | | + + +---------+ + Care Team Providers + +------+ + | Care Tree Fruit And Nut Farming Supervisor Name | Role | Phone | + +------+ + PCP | Unavailable | + +------+ + Encounter Details +--------+ + + + + | Date | Type | Department | Care Team | Description | +--------+ + + + + | 03/31/ | ED Progress | | Bassam Andrade | ED Progress Note | | 2006 | | | MD Eros DIAZ | | | | Note-Transc | | Health & Science | | | | kamar | | [address] | | | | | | [address] | | | | | | [place] [address] | | +--------+ + + + + [...]
--- OUTSIDE RECORDS SUMMARY | ~2019-01-08 | XMS | Encounter Summary ---
Demographics + + + | Address | [address] | | | [place] [address] | + + + | Home Phone | | + + + | Preferred Language | Unknown | + + + | Marital Status | | + + + | Sikh Affiliation | NON | + + + | Race | White | + + + | Ethnic Group | Not or | + + + Author + + + | Author | [facility] | + + + | Organization | [facility] | + + + | Address | Unknown | + + + | Phone | Unavailable | + + + Support + + +---------+ + | Name | Relationship | Address | Phone | + + +---------+ + | Velma Trejo | ECON | Unknown | | + + +---------+ + Care Team Providers + +------+ + | Care Water Commissioner Name | Role | Phone | + +------+ + PCP | Unavailable | + +------+ + Encounter Details +--------+ + + + + | Date | Type | Department | Care Team | Description | +--------+ + + + + | 04/03/ | Documentati | Neurology at | Angelina Acosta MD | | | 2007 | on | [facility] & | [address] | | | | | [address] | [place], [place] | | | | | [address] Mailcode: | [address] | | | | | [address] [place] [address] | [phone] | | | | | Health and Healing, | | | | | | | | | | | | [place], [place] | | | | | | [address] | | | | | | [phone] | | | +--------+ + + + [...]
--- OUTSIDE RECORDS SUMMARY | ~2019-01-08 | XMS | Encounter Summary ---
Demographics + + + | Address | [address] | | | [place] [address] | + + + | Home Phone | | + + + | Preferred Language | Unknown | + + + | Marital Status | | + + + | Buddhism Affiliation | NON | + + + | Race | White | + + + | Ethnic Group | Not or | + + + Author + + + | Author | [facility] | + + + | Organization | [facility] | + + + | Address | Unknown | + + + | Phone | Unavailable | + + + Support + + +---------+ + | Name | Relationship | Address | Phone | + + +---------+ + | Velma Trejo | ECON | Unknown | | + + +---------+ + Care Team Providers + +------+ + | Care Occupational Health Physician Name | Role | Phone | + [...] Visit | Clinic [address] | DRAIN TILE MACHINE OPERATOR [address] | Aneurysm; Encounter | | | | [address] | [address] | for Long-Term | | | | Mailcode: [id number] | [place], [place] | (Current) Use of | | | | Outpatient Clinic | [address] | Anticoagulants | | | | [place] [address] | [phone] | | | | | [place], [place] | | | | | | [address] | | | | | | [phone] | | | +--------+---------+ + + + [...] + + | NATALIE [facility] | [address] | [place], [place] | | | [facility] | [facility] | [address] | | | TESTS | | | | + + + + + | [facility] | [address] | [place], [place] | | | TESTS | [facility] | [address] | | + + + + + documented in this encounter Visit Diagnoses + + | Diagnosis | + + | Atrial septal aneurysm Aneurysm of heart (wall) | + + | terminal computer operator (current) use of anticoagulants Long-term (current) use of anticoagulants | + + documented in this encounter"
--- OUTSIDE RECORDS SUMMARY | ~2019-01-08 | XMS | Encounter Summary ---
Demographics + + + | Address | [address] | | | [place] [address] | + + + | Home Phone | | + + + | Preferred Language | Unknown | + + + | Marital Status | | + + + | Druze Affiliation | NON | + + + | Race | White | + + + | Ethnic Group | Not or | + + + Author + + + | Author | [facility] | + + + | Organization | [facility] | + + + | Address | Unknown | + + + | Phone | Unavailable | + + + Support + + +---------+ + | Name | Relationship | Address | Phone | + + +---------+ + | Velma Trejo | ECON | Unknown | | + + +---------+ + Care Team Providers + +------+ + | Care Court Stenographer Name | Role | Phone | + +------+ + | Jaime Irizarry DO | PCP | Unavailable | + +------+ + Encounter Details +--------+ + + + + | Date | Type | Department | Care Team | Description | +--------+ + + + + | 09/17/ | Abstract | Cardiology [facility] at | [place] [address] | | | 2011 | | [facility] [address] | [address] | | | | | [place] Mailcode: [address] | Road [place], [place] | | | | | [facility] | [address] | | | | | and Healing, | | | | | | | | | | | | [place], [place] | | | | | | [address] | | | | | | [phone] | | | +--------+ + + + [...]
--- OUTSIDE RECORDS SUMMARY | ~2019-01-08 | XMS | Encounter Summary ---
Demographics + + + | Address | [address] | | | [place] [address] | + + + | Home Phone | | + + + | Preferred Language | Unknown | + + + | Marital Status | | + + + | Oriental Orthodox Affiliation | NON | + + + | Race | White | + + + | Ethnic Group | Not or | + + + Author + + + | Author | [facility] | + + + | Organization | [facility] | + + + | Address | Unknown | + + + | Phone | Unavailable | + + + Support + + +---------+ + | Name | Relationship | Address | Phone | + + +---------+ + | Velma Trejo | ECON | Unknown | | + + +---------+ + Care Team Providers + +------+ + | Care Sheet Writer Name | Role | Phone | + [...] cheduled | Clinic [address] | BLOCK SAW OPERATOR [address] | monitoring | | | | [address] | [address] | | | | | Mailcode: [id number] | [place], [place] | | | | | Outpatient Clinic | [address] | | | | | [place] [address] | [phone] | | | | | [place], [place] | | | | | | [address] | | | | | | [phone] | | | +--------+ + + + [...]
--- OUTSIDE RECORDS SUMMARY | ~2019-01-08 | XMS | Encounter Summary ---
Demographics + + + | Address | [address] | | | [place] [address] | + + + | Home Phone | | + + + | Preferred Language | Unknown | + + + | Marital Status | | + + + | Sabianist Affiliation | NON | + + + | Race | White | + + + | Ethnic Group | Not or | + + + Author + + + | Author | [facility] | + + + | Organization | [facility] | + + + | Address | Unknown | + + + | Phone | Unavailable | + + + Support + + +---------+ + | Name | Relationship | Address | Phone | + + +---------+ + | Velma Trejo | ECON | Unknown | | + + +---------+ + Care Team Providers + +------+ + | Care Indirect Sales Representative Name | Role | Phone | + +------+ + | Henry Velazquez | PCP | Unavailable | + +------+ + Encounter Details +--------+------+ + + + | Date | Type | Department | Care Team | Description | +--------+------+ + + + | 09/15/ | Lab | Laboratory at [facility] | | Restless Legs | | 2007 | | [address] | | Syndrome | | | | [place], [place] | | | | | | [address] | | | | | | [phone] | | | +--------+------+ + + + Social History + +-------+ [...] | + +--------+ + + + | FERRITIN | Routin | 09/16/2007 | Restless Legs | Results for this | | | e | 3:27 PM | Syndrome | procedure are in the | | | | PDT | | results section. | + +--------+ + + + | IRON AND TIBC, SERUM | Routin | 09/16/2007 | Restless Legs | Results for this | | | e | 3:27 PM | Syndrome | procedure are in the | | | | PDT | | results section. | + +--------+ + + + documented in this encounter Results IRON AND TIBC, SERUM [...] Iron and TIBC, Serum Test performed by [facility] | | | [facility]. | | + + + + + + + + | Performing | Address | City/State/Zipcode | Phone Number | | Organization | | | | + + + + + | [facility] | [address] | [place] [address] | | | LABORATORY | | | [...] [facility] ([facility]) | | | [facility] [place] [address] | | | [place] [address] | | + + + + + + + + | Performing | Address | City/State/Zipcode | Phone Number | | Organization | | | | + + + + + | [facility] | [address] | [place] [address] | | | LABORATORY | | | | + + + + + documented in this encounter Visit Diagnoses + + | Diagnosis | + + | Restless legs syndrome Restless legs syndrome (RLS) | + + documented in this encounter"
--- OUTSIDE RECORDS SUMMARY | ~2019-01-08 | XMS | Encounter Summary ---
Demographics + + + | Address | [address] | | | [place] [address] | + + + | Home Phone | | + + + | Preferred Language | Unknown | + + + | Marital Status | | + + + | Rastafarian Affiliation | NON | + + + | Race | White | + + + | Ethnic Group | Not or | + + + Author + + + | Author | [facility] | + + + | Organization | [facility] | + + + | Address | Unknown | + + + | Phone | Unavailable | + + + Support + + +---------+ + | Name | Relationship | Address | Phone | + + +---------+ + | Velma Trejo | ECON | Unknown | | + + +---------+ + Care Team Providers + +------+ + | Care Invoice Machine Operator Name | Role | Phone | + +------+ + PCP | Unavailable | + +------+ + Encounter Details +--------+ + + + + | Date | Type | Department | Care Team | Description | +--------+ + + + + | 04/03/ | Discharge | Neurology at | Carolyn Hermosillo MD | D/C Summary ODDS | | 2008 | Summary-Tra | [facility] & | | | | | nscribed | [address] | | | | | | [place] Mailcode: | | | | | | [facility] | | | | | | Health and Healing, | | | | | | Building | | | | | | Floor [place], [place] | | | | | | [address] | | | | | | [phone] | | | +--------+ + + + [...] + + documented as of this encounter Discharge Summaries Carolyn Hermosillo Md - 04/08/2007 11:03 AM [facility] [id number] [facility] [id number] Admission Date: 03/31/2007 Discharge Date: 04/03/2007 Primary Care Physician: Henry Velazquez D.O. Staff Physician: Vivian Alvarez, Ph.D., M.D. Principal Final Diagnosis: Encephalopathy. Additional Diagnosis: 1. Small nonacute left putaminal hemorrhage. 2. Bipolar disorder. 3. Parkinsonism. 4. Hypertension. Principal Procedure: Head CT. Additional Procedures: 1. Chest x-ray. 2. MRI and MRA of the head and neck. 3. Transthoracic echocardiogram. Reason for Admission: Encephalopathy and right facial droop. Hospital Course: Ms. Garcia is a 57-year-old woman who presented to [facility] with approximately 3 weeks of worsening confusion as well as a right facial droop which was first noticed 1 week prior to her presentation. These changes had occurred in the setting of many recent medication changes. Approximately 2 months prior to admission, Ms. Garcia who was on Abilify at the time for her bipolar disorder was noted to have some parkinsonian features and was seen by [facility] neurologist, Dr. Angelina Centeno, at which time she was started on Sinemet, and through communication with her psychiatrist, her Abilify was switched to lithium. She developed some side effects of nausea and vomiting on the Sinemet for which Dr. Centeno recommended adding carbidopa in addition to her combination Sinemet pill. Ms. Garcia had some confusion as to this change and had increased her Sinemet dose from 1 tablet t.i.d. to 1 tablet 4 times daily at least 1 week prior to her hospitalization, possibly several weeks earlier. Due to her confused state, it was difficult to know exactly when this medication increase occurred. In addition to starting her on lithium, her psychiatrist had also started on Klonopin which she was taking 2 mg each morning and none in the evening. While she was in the hospital, we simplified and reduced her medications. Specifically, her Mirapex which she had been taking for restless leg, her Lyrica which she had been taking for pain, and her lithium were all discontinued. Her Klonopin dose was changed from 2 mg in the morning to 0.5 mg twice daily, and her Sinemet dose was returned to 1 tablet 3 times daily with carbidopa 25 mg 3 times daily to be given with the Sinemet pills. Her mental status did improve markedly as these changes were made. For her right facial droop, an MRI with diffusion was performed, and this showed a very small hemorrhage in the left putaminal area which did not look acute and was likely consistent with the onset of the facial droop, again approximately 1 week prior to her admission at [facility]. Also, for stroke workup, a transthoracic echocardiogram was performed. Ms. Garcia had already been taking Aggrenox after she had a stroke that was clinically evident in October 2006. This transthoracic echo showed in addition to a widely patent foramen ovale, also evidence of an atrial septal aneurysm for which the recommended therapy is anticoagulation. Therefore, Ms. Garcia was enrolled in Anticoagulation Clinic where she will follow up as an outpatient. Her INR goal is 2.0 to 3.0. At which point she reaches such goal, it would be advisable then to discontinue her Aggrenox. Condition on Discharge: Stable. Discharge Medication(s): 1. Amlodipine 5 mg p.o. daily. 2. Aggrenox 1 tablet b.i.d. until therapeutic on warfarin. 3. Lipitor 20 mg p.o. nightly. 4. Sinemet 25/100 p.o. t.i.d. 5. Carbidopa 25 mg p.o. t.i.d. 6. Klonopin 0.5 mg p.o. b.i.d. 7. Hydrochlorothiazide 25 mg p.o. daily. 8. Lisinopril 20 mg p.o. daily. 9. Toprol-XL 200 mg p.o. daily. 10. Niacin 500 mg p.o. b.i.d. 11. Warfarin 5 mg p.o. nightly, first dose to be given on Thursday, April 05, 2007, and then dose to be adjusted per Anticoagulation Clinic recommendations. First INR and Anticoagulation Clinic appointment will be on Sunday, April 08, 2007. Discharge Instruction(s): Diet: Regular. Activity: As tolerated. Follow up with outpatient Physical Therapy for general strengthening. Also, follow up with [facility] neurologist, Dr. Angelina Centeno, as previously scheduled in 4 weeks. Follow up with Anticoagulation Clinic on Sunday, April 08, 2007. The patient will be staying with her son in [place] for an undetermined length of time. Should she return to her home in [place], then she should also follow up with her local neurologist, Dr. Julius Rust, as well as her primary care physician in [place] who is Dr. Henry Velazquez. Should the patient and her son decide that she will remain in [place], [place], then her son has agreed to help her find a local primary care physician. Carolyn Hermosillo M.D. Vivian Alvarez, Ph.D., M.D. / [id number] / [id number] / [phone] / cc: Julius Rust M.D. FAX: [phone] Henry Velazquez D.O. Fax #: [phone] Electronically signed by Vivian Alvarez 04-08-2007 09:21:48 AM documented in this enco unter Plan of Treatment Not on filedocumented as of this encounter Visit Diagnoses Not on filedocumented in this encounter"
--- OUTSIDE RECORDS SUMMARY | ~2019-01-08 | XMS | Encounter Summary ---
Demographics + + + | Address | [address] | | | [place] [address] | + + + | Home Phone | | + + + | Preferred Language | Unknown | + + + | Marital Status | | + + + | Congregational Affiliation | NON | + + + [...] Team Providers + +------+ + | Care Darkroom Worker Name | Role | Phone | + +------+ + PCP | Unavailable | + +------+ + Encounter Details +--------+ + + + + | Date | Type | Department | Care Team | Description | +--------+ + + + + | 04/03/ | Documentati | Neurology at | Angelina Acosta MD | | | 2007 | on | [facility] & | [address] | | | | | [address] | [place], [place] | | | | | [address] Mailcode: | [address] | | | | | [address] [place] [address] | [phone] | | | | | Health and Healing, | | | | | | | | | | | | [place], [place] | | | | | | [address] | | | | | | [phone] | | | +--------+ + + + [...]
--- OUTSIDE RECORDS SUMMARY | ~2019-01-08 | XMS | Encounter Summary ---
Demographics + + + | Address | [address] | | | [place] [address] | + + + | Home Phone | | + + + | Preferred Language | Unknown | + + + | Marital Status | | + + + | Gnosticist Affiliation | NON | + + + [...] Team Providers + +------+ + | Care Instructional Supervisor Name | Role | Phone | + +------+ + | Jaime Irizarry DO | PCP | Unavailable | + +------+ + Reason for Visit Diagnostic Testing (Routine) +--------+--------+ + + + [...] | | | | | Procedures | [place], [place] | [facility] | | | | | TRANSTHORACI | [address] | for Health | | | | | C | Phone: | and Healing, | | | | | ECHOCARDIOGR | [phone] | Building [address] | | | | | AM, ADULT | Fax: | [place], [place] | | | | | | [phone] | [address] | | | | | | | Phone: | | | | | | | [phone] | +--------+--------+ + + + + Encounter Details +--------+ + + + + | Date | Type | Department | Care Team | Description | +--------+ + + + + | 11/05/ | Hospital | Cardiac | | | | 2011 | Encounter | Non-Invasive Testing | | | | | | at [facility] [address] | | | | | | [address] Mailcode: | | | | | | [address] | | | | | | Health and [facility], | | | | | | [facility] | | | | | | [place], [place] | | | | | | [address] | | | | | | [phone] | | | +--------+ + + + [...] + + documented as of this encounter Medications at Time of Discharge + + + +---------+--------+ + | Medication | Sig | Dispensed | Refills | Start | End Date | | | | | | Date | | + + + +---------+--------+ + | | take 1 capsule by | | 0 | | | | Amlodipine-Benazepri | oral route once | | | | | | l 5-20 mg Oral | daily | | | | | | Capsule | | | | | | + + + +---------+--------+ + | Metoprolol | take 1 tablet (200 | | 0 | | | | Succinate (TOPROL | mg) by oral route | | | | | | XL) 200 mg Oral | once daily | | | | | | Tablet Sustained | | | | | | | Release 24 hr | | | | | | + + + +---------+--------+ + | Niacin | take 1 tablet (500 | | 0 | | | | (Antihyperlipidemic) | mg) by oral route | | | | | | (NIASPAN) 500 mg | twice daily | | | | | | Oral Tablet | | | | | | | Sustained Release | | | | | | + + + +---------+--------+ + documented as of this encounter Progress Zara Mcrae - 11/06/2011 3:29 PM PDTTransthoracic echocardiogram completed. Final report to follow. documented in this encounter Plan of Treatment [...]
--- OUTSIDE RECORDS SUMMARY | ~2019-01-08 | XMS | Encounter Summary ---
Demographics + + + | Address | [address] | | | [place] [address] | + + + | Home Phone | | + + + | Preferred Language | Unknown | + + + | Marital Status | | + + + | Voodoo Affiliation | NON | + + + [...] Team Providers + +------+ + | Care Aerospace Technician Name | Role | Phone | + +------+ + | Henry Velazquez | PCP | Unavailable | + +------+ + Encounter Details +--------+ + + + + | Date | Type | Department | Care Team | Description | +--------+ + + + + | 08/26/ | Documentati | AntiCoagulation at | Note, | | | 2008 | on | [facility] [address] | Anticoagulation | | | | | [address] | Clinic | | | | | [facility] | | | | | | [address] | | | | | | [facility] | | | | | | [place], [place] | | | | | | [address] | | | | | | [phone] | | | +--------+ + + + [...]
--- OUTSIDE RECORDS SUMMARY | ~2019-01-08 | XMS | Encounter Summary ---
Demographics + + + | Address | [address] | | | [place] [address] | + + + | Home Phone | | + + + | Preferred Language | Unknown | + + + | Marital Status | | + + + | Baptist Affiliation | NON | + + + [...] Team Providers + +------+ + | Care Shop Router Name | Role | Phone | + [...] | | | | kamar | | [address] | | | | | | [address] | | | | | | [place] [address] | | +--------+ + + + + [...]
--- OUTSIDE RECORDS SUMMARY | ~2019-01-08 | XMS | Encounter Summary ---
Demographics + + + | Address | [address] | | | [place] [address] | + + + | Home Phone [...] + + + | Author | [facility] | + + + | Organization | [facility] | + + + | Address | Unknown | + + + | Phone | Unavailable | + + + Support + + +---------+ + | Name | Relationship | Address | Phone | + + +---------+ + | Velma Trejo | ECON | Unknown | | + + +---------+ + Care Team Providers + +------+ + | Care Automotive Assembler Name | Role | Phone | + +------+ + PCP | Unavailable | + +------+ + Encounter Details +--------+ + + + + | Date | Type | Department | Care Team | Description | +--------+ + + + + | 09/05/ | Document-Sc | UNKNOWN DEPARTMENT | Unknown . | | | 2011 | anned | [address] | | | | | | [address] | | | | | | [place], [place] | | | | | | [address] | | | +--------+ + + + [...]
--- OUTSIDE RECORDS SUMMARY | ~2019-01-08 | XMS | Encounter Summary ---
Demographics + + + | Address | [address] | | | [place] [address] | + + + | Home Phone [...] Author + + + | Author | [facility] | + + + | Organization | [facility] | + + + | Address | Unknown | + + + | Phone | Unavailable | + + + Support + + +---------+ + | Name | Relationship | Address | Phone | + + +---------+ + | Velma Trejo | ECON | Unknown | | + + +---------+ + Care Team Providers + +------+ + | Care Convex Grinder Name | Role | Phone | + [...] | 2007 | | Disorders Clinic | [address] | | | | | [address] | [place], [place] | | | | | Leeann Carney Mailcode: | [id number] | | | | | [facility] Outpatient | [phone] | | | | | Clinic Building | | | | | | [place], [place] | | | | | | [address] | | | | | | [phone] | | | +--------+ + + + [...]
--- OUTSIDE RECORDS SUMMARY | ~2019-01-08 | XMS | Encounter Summary ---
Demographics + + + | Address | [address] | | | [place] [address] | + + + | Home Phone [...] + + + | Author | [facility] | + + + | Organization | [facility] | + + + | Address | Unknown | + + + | Phone | Unavailable | + + + Support + + +---------+ + | Name | Relationship | Address | Phone | + + +---------+ + | Velma Trejo | ECON | Unknown | | + + +---------+ + Care Team Providers + +------+ + | Care Transcription Specialist Name | Role | Phone | + [...] [address] | | | | | | [place], [place] | | | | | | [address] | | | +--------+ + + + [...]
--- OUTSIDE RECORDS SUMMARY | ~2019-01-08 | XMS | Clinical Summary ---
Demographics + + + | Address | [address] | | | [place] [address] | + + + | Home Phone | | + + + | Preferred Language | Unknown | + + + | Marital Status | | + + + | Faith Affiliation | NON | + + + | Race | White | + + + | Ethnic Group | Not or | + + + Author + + + | Author | [facility] | + + + | Organization [...] Team Providers + +------+ + | Care Trim Master Operator Name | Role | Phone | + +------+ + | Jaime Irizarry DO | PCP | Unavailable | + +------+ + Source Comments [facility] is fully live on both EpicCare Ambulatory and EpicCare InPatient.[facility] Allergies + + + + + [...] | 04/08/2007 | + + + | 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
--- OUTSIDE RECORDS SUMMARY | ~2019-01-08 | XMS | Encounter Summary ---
Demographics + + + | Address | [address] | | | [place] [address] | + + + | Home Phone [...] Team Providers + +------+ + | Care Agency Appointments Supervisor Name | Role | Phone | [...] Pavilion | | | | | | [place], [place] | | | | | | [address] | | | | | | [phone] | | | +--------+ + + + [...]
--- OUTSIDE RECORDS SUMMARY | ~2019-01-08 | XMS | Encounter Summary ---
Demographics + + + | Address | [address] | | | [place] [address] | + + + | Home Phone [...] Author + + + | Author | [facility] | + + + | Organization | [facility] | + + + | Address | Unknown | + + + | Phone | Unavailable | + + + Support + + +---------+ + | Name | Relationship | Address | Phone | + + +---------+ + | Velma Trejo | ECON | Unknown | | + + +---------+ + Care Team Providers + +------+ + | Care Golf Club Manager Name | Role | Phone | + [...] | Activity | [address] | [address] | | | | | [place] Mailcode: [id number] | [place], [place] | | | | | [place], [place] | [address] | | | | | [address] | [phone] | | | | | [phone] | | | +--------+ + + + [...] | + + + + + | [facility] | [address] | [place] [address] | | | PATHOLOGY | [address] | | | + + + + + | [facility] | [address] | [place] [address] | | | PATHOLOGY | [address] [...] | + + + + + | [facility] | [address] [facility] [address] | [place] [address] | | | PATHOLOGY | [address] | | | + + + + + | [facility] | [address] [place] [address] | [place] [address] | | | PATHOLOGY | [address] [...] change | | | effective 01/21/07 RLB ([facility]) | | | [place] [facility] [place] [address] | | | [place] [address] | | + + + + + + + + | Performing | Address | City/State/Zipcode | Phone Number | | Organization | | | | + + + + + | [facility] | [address] | [place] [address] | | | LABORATORY | | | [...] 2: | | | | | | aDmaso NIELSEN, | | | | | | [...] periventricular | | | | | | [id number] | | | | | | suggestive [...] left | | | | | | [id number] is supplied by | | | | [...] | | | | in the right TOOL PROGRAMMER distal | | | | | | [...] | | | | | and right TOOL PROGRAMMER arteries, | | | | | | [...] | | + +---------+ + + | [facility] DEPARTMENT OF | | | | | [...] periventricular | | | | | | [id number] | | | | | | suggestive [...] left | | | | | | [id number] is supplied by | | | | [...] | | | | in the right TOOL PROGRAMMER distal | | | | | | [...] | | | | | and right TOOL PROGRAMMER arteries, | | | | | | [...] | | + +---------+ + + | [facility] DEPARTMENT OF | | | | | [...] periventricular | | | | | | [id number] | | | | | | suggestive [...] left | | | | | | [id number] is supplied by | | | | [...] | | | | in the right TOOL PROGRAMMER distal | | | | | | [...] | | | | | and right TOOL PROGRAMMER arteries, | | | | | | [...] | + + + + + | [facility] DEPARTMENT OF | [facility] | [place] [address] | | | PATHOLOGY | [address] | | | + + + + + | [facility] DEPARTMENT OF | [address] | [place] [address] | | | PATHOLOGY | [address] [...] | + + + + + | [facility] | [address] [facility] [address] | [place] [address] | | | PATHOLOGY | [address] | | | + + + + + | [facility] | [address] [place] [address] | [place] [address] | | | PATHOLOGY | [address] [...] RLB (Airport | | | Ke Lab) [facility] | | | [address] | | | [place] [address] | | + + + + + + + + | Performing | Address | City/State/Zipcode | Phone Number | | Organization | | | | + + + + + | [facility] | [address] | [place] [address] | | | LABORATORY | | | [...] DEPARTMENT OF | [address] | [place] [address] | | | PATHOLOGY | [address] | | | + + + + + | [facility] DEPARTMENT OF | [address] | [place] [address] | | | PATHOLOGY | [address] [...] 7.6 | 4.4 - 11.0 K/cu | [facility] | | | COUNT | | mm [...] | + + + + + | [facility] DEPARTMENT OF | [address] [facility] [address] | [place] [address] | | | PATHOLOGY | [address] | | | + + + + + | [facility] DEPARTMENT OF | [address] [facility] [address] | [place] [address] | | | PATHOLOGY | [address] [...] | + + + + + | [facility] DEPARTMENT OF | [address] | [place] [address] | | | PATHOLOGY | [address] | | | + + + + + | [facility] DEPARTMENT OF | [address] [facility] [address] | [place] [address] | | | PATHOLOGY | [address] [...] | + + + + + | [facility] DEPARTMENT OF | [address] | [place] [address] | | | PATHOLOGY | [address] | | | + + + + + | [facility] DEPARTMENT OF | [facility] | [place] [address] | | | PATHOLOGY | [address] [...] | + + + + + | [facility] DEPARTMENT OF | [address] | [place] [address] | | | PATHOLOGY | [address] | | | + + + + + | [facility] DEPARTMENT OF | [address] | [place] [address] | | | PATHOLOGY | [address] | | | + + + + + MAGNESIUM, PLASMA (03/31/2007 9:40 PM PST) + +-------+ + + + | Component | Value | Ref Range | Performed | Pathologist | | | | | At | Signature | + +-------+ + + + | MAGNESIUM,P | 2.1 | 1.8 - 2.5 mg/dL | [facility] | | | LASMA | | | [...] | + + + + + | [facility] DEPARTMENT OF | [facility] | [place] [address] | | | PATHOLOGY | [address] | | | + + + + + | [facility] DEPARTMENT OF | [facility] | [place] [address] | | | PATHOLOGY | [address] [...] | + + + + + | [facility] DEPARTMENT OF | [address] | [place] [address] | | | PATHOLOGY | [address] | | | + + + + + | [facility] DEPARTMENT OF | [address] | [place] [address] | | | PATHOLOGY | [address] [...] | + + + + + | [facility] | [address] [facility] | [place] [address] | | | PATHOLOGY | [address] | | | + + + + + | [facility] | [address] [facility] [address] | [place] [address] | | | PATHOLOGY | [address] [...] El | | | | | | [facility] | | | | | | [place] [address] | | | | | | [address] | | | | | | Way [facility] | | | | | | [place], [place] [address] | | | | | | nt: Test performed at | | | | | | [facility] | | | | | | [facility]. | | | | + + + + + + + + | Specimen | + + | | + + + + + + + | Performing | Address | City/State/Zipcode | Phone Number | | Organization | | | | + + + + + | [facility] | [address] | [place] [address] | | | LAB-MICRO | | | [...] | + + + + + | [facility] DEPARTMENT | [address] [facility] [address] | [place] [address] | | | PATHOLOGY | [address] | | | + + + + + | [facility] | [address] [facility] [address] | [place] [address] | | | PATHOLOGY | [address] [...] | + + + + + | [facility] DEPARTMENT OF | [address] [facility] [address] | [place] [address] | | | PATHOLOGY | [address] | | | + + + + + | [facility] DEPARTMENT OF | [address] [facility] | [place] [address] | | | PATHOLOGY | [address] [...] | + + + + + | [facility] DEPARTMENT | [facility] | [place] [address] | | | PATHOLOGY | [address] | | | + + + + + | [facility] DEPARTMENT OF | [address] [facility] | [place] [address] | | | PATHOLOGY | [address] [...] | + + + + + | [facility] DEPARTMENT | [address] [facility] [address] | [place] [address] | | | PATHOLOGY | [address] | | | + + + + + | [facility] | [address] [facility] [address] | [place] [address] | | | PATHOLOGY | [address] [...] | + + + + + | [facility] | [address] | [place] [address] | | | PATHOLOGY | [address] | | | + + + + + | [facility] | [address] | [place] [address] | | | PATHOLOGY | [address] [...] | + + + + + | [facility] | [address] [facility] [address] | [place] [address] | | | PATHOLOGY | [address] | | | + + + + + | [facility] | [address] [facility] [address] | [place] [address] | | | PATHOLOGY | [address] [...] | + + + + + | [facility] | [address] [facility] [address] | [place] [address] | | | PATHOLOGY | [address] | | | + + + + + | [facility] | [address] [facility] [address] | [place] [address] | | | PATHOLOGY | [address] [...] DEPT OF | [address] | [place], [place] | | | CARDIOLOGY | [facility] | [address] | | + + + + + | [facility] DEPT OF | [address] | [place], [place] | | | CARDIOLOGY | [facility] | [address] | | + + + + + [...] | | + +---------+ + + | [facility] DEPARTMENT OF | | | | | RADIOLOGY | | | | + +---------+ + + documented in this encounter Visit Diagnoses Not on filedocumented in this encounter
--- OUTSIDE RECORDS SUMMARY | ~2019-01-08 | XMS | Encounter Summary ---
Demographics + + + | Address | [address] | | | [place] [address] | + + + | Home Phone | | + + + | Preferred Language | Unknown | + + + | Marital Status | | + + + | Pentecostalism Affiliation | NON | + + + | Race | White | + + + | Ethnic Group | Not or | + + + Author + + + | Author | [facility] | + + + | Organization | [facility] | + + + | Address | Unknown | + + + | Phone | Unavailable | + + + Support + + +---------+ + | Name | Relationship | Address | Phone | + + +---------+ + | Velma Trejo | ECON | Unknown | | + + +---------+ + Care Team Providers + +------+ + | Care Furnace Fitter Name | Role | Phone | + +------+ + PCP | Unavailable | + +------+ + Encounter Details +--------+ + + + + | Date | Type | Department | Care Team | Description | +--------+ + + + + | 04/03/ | Discharge | Neurology at | Carolyn Hermosillo MD | D/C Summary ODDS | | 2008 | Summary-Tra | [facility] & | | | | | nscribed | Healing [address] | | | | | | [address] Mailcode: | | | | | | [facility] | | | | | | Health and Healing, | | | | | | Building | | | | | | Floor [place], [place] | | | | | | [address] | | | | | | [phone] | | | +--------+ + + + [...] Carolyn Hermosillo Md - 04/08/2007 11:03 AM RUST [id number] [facility] [id number] Admission Date: 03/31/2007 Discharge Date: 04/03/2007 Primary [...] is a 57-year-old woman who presented to [facility] with approximately 3 weeks of worsening confusion [...] some parkinsonian features and was seen by [facility] neurologist, Dr. Angelina Centeno, at which time [...] 1 week prior to her admission at [facility]. Also, for stroke workup, a transthoracic echocardiogram [...] for general strengthening. Also, follow up with [facility] neurologist, Dr. Angelina Centeno, as previously scheduled in 4 weeks. Follow up with Anticoagulation Clinic on Sunday, April 08, 2007. The patient will be staying with her son in [place] for an undetermined length of time. Should she return to her home in [place], then she should also follow up with her local neurologist, Dr. Julius Rust, as well as her primary care physician in [place] who is Dr. Henry Velzaquez. Should the patient and her son decide that she will remain in [place], [place], then her son has agreed to help her find a local primary care physician. Carolyn Hermosillo M.D. Vivian Alvarez, Ph.D., M.D. / [id number] / [id number] / [id number] / cc: Julius Rust M.D. FAX: [phone] Henry Velazquez D.O. Fax #: [phone] Electronically signed by Vivian Alvarez 04-08-2007 09:21:48 AM documented in this enco unter Plan of Treatment Not on filedocumented as of this encounter Visit Diagnoses Not on filedocumented in this encounter"
--- OUTSIDE RECORDS SUMMARY | ~2019-01-08 | XMS | Encounter Summary ---
Demographics + + + | Address | [address] | | | [place] [address] | + + + | Home Phone | | + + + | Preferred Language | Unknown | + + + | Marital Status | | + + + | Mosque Affiliation | NON | + + + | Race | White | + + + | Ethnic Group | Not or | + + + Author + + + | Author | [facility] | + + + | Organization | [facility] | + + + | Address | Unknown | + + + | Phone | Unavailable | + + + Support + + +---------+ + | Name | Relationship | Address | Phone | + + +---------+ + | Velma Trejo | ECON | Unknown | | + + +---------+ + Care Team Providers + +------+ + | Care Digital Analytics Manager Name | Role | Phone | [...] | | | | | | [place], | | | | | | [place] [address] | | | | | | [phone] | | | +--------+ + + + [...]
--- OUTSIDE RECORDS SUMMARY | ~2019-01-08 | XMS | Encounter Summary ---
Demographics + + + | Address | [address] | | | [place] [address] | + + + | Home Phone [...] Team Providers + +------+ + | Care Prepress Proofer Name | Role | Phone | + +------+ + | Henry Velazquez | PCP | Unavailable | + +------+ + Encounter Details +--------+------+ + + + | Date | Type | Department | Care Team | Description | +--------+------+ + + + | 09/15/ | Lab | Laboratory at [facility] | | Restless Legs | | 2007 | | [address] | | Syndrome | | | | [place], [place] | | | | | | [address] | | | | | | [phone] | | | +--------+------+ + + + [...] Iron and TIBC, Serum Test performed by [facility] | | | [facility] Smart Gardener. | | + + + + + + + + | Performing | Address | City/State/Zipcode | Phone Number | | Organization | | | | + + + + + | [facility] | [address] | [place] [address] | | | LABORATORY | | | [...] ([address] [facility]) | | | [facility] [place] [address] | | | [place] [address] | | + + + + + + + + | Performing | Address | City/State/Zipcode | Phone Number | | Organization | | | | + + + + + | [facility] | [address] | [place] [address] | | | LABORATORY | | | | + + + + + documented in this encounter Visit Diagnoses + + | Diagnosis | + + | Restless legs syndrome Restless legs syndrome (RLS) | + + documented in this encounter"
--- OUTSIDE RECORDS SUMMARY | ~2019-01-08 | XMS | Encounter Summary ---
Demographics + + + | Address | [address] | | | [place] [address] | + + + | Home Phone | | + + + | Preferred Language | Unknown | + + + | Marital Status | | + + + | Orthodox Affiliation | NON | + + [...] Team Providers + +------+ + | Care Rotary Dryer Operator Name | Role | Phone | [...] cheduled | Clinic [address] | MERCHANDISE COORDINATOR [address] | monitoring | | | | [address] | [address] | | | | | Mailcode: OP03 | [place], [place] | | | | | Outpatient Clinic | [address] | | | | | [place] [address] | [phone] | | | | | [place], [place] | | | | | | [address] | | | | | | [phone] | | | +--------+ + + + [...]
--- OUTSIDE RECORDS SUMMARY | ~2019-01-08 | XMS | Encounter Summary ---
Demographics + + + | Address | [address] | | | [place] [address] | + + + | Home Phone | | + + + | Preferred Language | Unknown | + + + | Marital Status | | + + + | Roman Catholic Affiliation | NON | + + + [...] Team Providers + +------+ + | Care Marine Services Technician Name | Role | Phone | [...] Refill Request | | 2006 | | [facility] Health & | [address] | | | | | Healing [address] | [place], [place] | | | | | [address] Mailcode: | [address] | | | | | [address] | [phone] | | | | | Health and Healing, | | | | | | [facility] | | | | | | [place], [place] | | | | | | [address] | | | | | | [phone] | | | +--------+--------+ + + + [...]
--- OUTSIDE RECORDS SUMMARY | ~2019-01-08 | XMS | Encounter Summary ---
Demographics + + + | Address | [address] | | | [place] [address] | + + + | Home Phone | | + + + | Preferred Language | Unknown | + + + | Marital Status | | + + + | Hoahaoism Affiliation | NON | + + + [...] Team Providers + +------+ + | Care Vault Worker Name | Role | Phone | [...] | | | | Medicine [address] | [place], [place] | | | | | | [address] | [address] | | | | | | [place], | Phone: | | | | | | [place] [address] | [phone] | | | | | | Phone: | Fax: | | | | | | [phone] | [phone] | | | | | | Fax: | | | | | | | [phone] | | +--------+ + + + + + Encounter Details +--------+---------+ + + + | Date | Type | Department | Care Team | Description | +--------+---------+ + + + | 01/14/ | Office | Neurology at | Angelina Acosta MD | Parkinsonism (HCC) | | 2006 | Visit | [place] [facility] & | [address] | (Primary Dx) | | | | Healing [address] | 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
--- OUTSIDE RECORDS SUMMARY | ~2019-01-08 | XMS | Clinical Summary ---
Demographics + + + | Address | [address] | | | [place] [address] | + + + | Home Phone | | + + + | Preferred Language | Unknown | + + + | Marital Status | | + + + | Shinto Affiliation | 1077 | + + + | Race | Unknown | + + + | Ethnic Group | Unknown | + + + Author + + + | Author | [facility] (Historical as of | | | 11-16-18) | + + + | Organization | [facility] (Historical as of | | | 11-16-18) | + + + | Address | Unknown | + + + | Phone | Unavailable | + + + Support + + + + + | Name | Relationship | Address | Phone | + + + + + | Mario Garcia | ECON | [address] | | | | | [place], [place] | | | | | [address] | | + + + + + Care Team Providers + +------+ + | Care Survey Party Chief Name | Role | Phone | + +------+ + | Harvinder Irizarry DO | PP | | + +------+ + Allergies Not on File Current Medications Not on file Active Problems Not on file Social History + +-------+ +--------+------+ | Tobacco [...] on file | | + + + Plan of Treatment Not on file Results Not on filefrom Last 3 Months"
--- OUTSIDE RECORDS SUMMARY | ~2019-01-08 | XMS | Encounter Summary ---
Demographics + + + | Address | [address] | | | [place] [address] | + + + | Home Phone [...] Team Providers + +------+ + | Care Gymnasium Teacher Name | Role | Phone | + +------+ + PCP | Unavailable | + +------+ + Encounter Details +--------+ + + + + | Date | Type | Department | Care Team | Description | +--------+ + + + + | 04/26/ | Documentati | AntiCoagulation | Shelly Lucero, | | | 2007 | on | Clinic [address] [facility] | [facility] [address] | | | | | [address] | [address] | | | | | Mailcode: OP03 | [facility] [place] | | | | | Outpatient Clinic | [address] | | | | | [place] [address] | [phone] | | | | | [place], [place] | | | | | | [address] | | | | | | [phone] | | | +--------+ + + + [...]
--- OUTSIDE RECORDS SUMMARY | ~2019-01-08 | XMS | Encounter Summary ---
Demographics + + + | Address | [address] | | | [place] [address] | + + + | Home Phone | | + + + | Preferred Language | Unknown | + + + | Marital Status | | + + + | Jew Affiliation | NON | + + + | Race | White | + + + | Ethnic Group | Not or | + + + Author + + + | Author | [facility] | + + + | Organization | [facility] | + + + | Address | Unknown | + + + | Phone | Unavailable | + + + Support + + +---------+ + | Name | Relationship | Address | Phone | + + +---------+ + | Velma Trejo | ECON | Unknown | | + + +---------+ + Care Team Providers + +------+ + | Care Forest Resource Specialist Name | Role | Phone | + +------+ + | Jaime Irizarry DO | PCP | Unavailable | + +------+ + Encounter Details +--------+ + + + + | Date | Type | Department | Care Team | Description | +--------+ + + + + | 11/05/ | Results | LAB REFERRED TESTS | Other, Faculty | | | 2011 | Only | [address] [facility] | [phone] | | | | | [address] | | | | | | [place], [place] | | | | | | [address] | | | +--------+ + + + [...] + | EJECTION FRACTION | Routin | 11/06/2011 | | Results for this | | | e | 2:36 PM | | procedure are in the | | | | PDT | | results section. | + +--------+ + + + documented in this encounter Results EJECTION FRACTION (11/06/2011 2:36 PM PDT) + + + + + + | Component | Value | Ref Range | Performed | Pathologist | | | | | At | Signature | + + + + + + | EJECTION | 60 - 65%Comment: EF | | [facility] | | | FRACTION | Recorded from [...] + + + + + | [facility] DE[facility] OF | [address] | [place], [place] | | | CARDIOLOGY | [address] | [address] | | + + + + + documented in this encounter Visit Diagnoses Not on filedocumented in this encounter"
--- OUTSIDE RECORDS SUMMARY | ~2019-01-08 | XMS | Encounter Summary ---
Demographics + + + | Address | [address] | | | [place] [address] | + + + | Home Phone | | + + + | Preferred Language | Unknown | + + + | Marital Status | | + + + | Yazidi Affiliation | NON | + + + [...] Providers + +------+ + | Care Forest Fire Lookout Name | Role | Phone | + +------+ + PCP | Unavailable | + +------+ + Reason for Visit +--------+ + | Reason | Comments | +--------+ + | Nausea | | +--------+ + Encounter Details +--------+ + + + + | Date | Type | Department | Care Team | Description | +--------+ + + + + | 04/10/ | Telephone | Neurology Movement | Angelina Acosta MD | Nausea | | 2007 | | Disorders Clinic | [address] | | | | | [address] | [place], [place] | | | | | Leeann Carney Mailcode: | [address] | | | | | OP32 Outpatient | [phone] | | | | | Clinic Building | | | | | | [place], [place] | | | | | | [address] | | | | | | [phone] | | | +--------+ + + + [...]
--- OUTSIDE RECORDS SUMMARY | ~2019-01-08 | XMS | Encounter Summary ---
Demographics + + + | Address | [address] | | | [place] [address] | + + + | Home Phone | | + + + | Preferred Language | Unknown | + + + | Marital Status | | + + + | Restorationism Affiliation | NON | + + + [...] Team Providers + +------+ + | Care Physiognomist Name | Role | Phone | + +------+ + PCP | Unavailable | + +------+ + Encounter Details +--------+ + + + + | Date | Type | Department | Care Team | Description | +--------+ + + + + | 03/22/ | Sweep Press Operator | Neurology at | Angelina Acosta MD | | | 2006 | | [facility] & | [address] | | | | | Healing [address] | [place], [place] | | | | | [address] Mailcode: | [address] | | | | | [address] | [phone] | | | | | Health and Healing, | | | | | | | | | | | | [place], [place] | | | | | | [address] | | | | | | [phone] | | | +--------+ + + + [...]
--- OUTSIDE RECORDS SUMMARY | ~2019-01-08 | XMS | Encounter Summary ---
Demographics + + + | Address | [address] | | | [place] [address] | + + + | Home Phone | | + + + | Preferred Language | Unknown | + + + | Marital Status | | + + + | Mosque Affiliation | NON | + + + | Race | White | + + + | Ethnic Group | Not or | + + + Author + + + | Author | [facility] | + + + | Organization | [facility] | + + + | Address | Unknown | + + + | Phone | Unavailable | + + + Support + + +---------+ + | Name | Relationship | Address | Phone | + + +---------+ + | Velma Trejo | ECON | Unknown | | + + +---------+ + Care Team Providers + +------+ + | Care Phys Asst Name | Role | Phone | + [...] Description | +--------+---------+ + + + | 04/08/ | Office | AntiCoagulation | Shelly Lucero, | Atrial Septal | | 2007 | Visit | Clinic [address] | COMMUNICATION CONSULTANT [address] | Aneurysm; Encounter | | | | [address] | [address] | for Long-Term | | | | Mailcode: OP03 | [place], [place] | (Current) Use of | | | | Outpatient Clinic | [address] | Anticoagulants | | | | [place] [address] | [phone] | | | | | [place], [place] | | | | | | [address] | | | | | | [phone] | | | +--------+---------+ + + + [...] documented as of this encounter Progress Notes Shelly Lucero Precious - 04/08/2007 2:03 PM PST Sana Garcia was seen and evaluated by myself today in the Anticoagulation Clinic for a new patient visit. Review of Systems: Constiutional: Negative for fever, weight loss about 2 lbs, and fatigue. Thrombosis: Negative for DVT, PE, arterial emboli, TIA, CVA, and HIT. Eyes: Negative for conjunctival bleeding and visual changes. HEENT: Negative for epistaxis but occa. gingival bleeding sm amt. Cardiac: Negative for chest pain, palpitations, and HTN. States has heart problem. Vascular: Negative for edema, pain, and compression stockings. Resp: Negative for SOB, chest pain, and hemoptysis. GI: Negative for vomiting, diarrhea, liver trouble, hematemesis, melena, hematochezia. Does have problems with nausea. : Negative for hematuria, hysterectomy 1999 Skin: Negative for bruising. Neuro: Negative for H/A, fainting, numbness, dizziness, weakness, and tingling. Psych: Negative Endo: Negative for diabetes and thyroid. Oncologic: Negative for cancer. Medication Taking Behavior: Additional/missed doses of other medication: No Pillbox: No Medic alert: No Family support: Yes - friend Ashlee with. Daughter Velma in town. Social/Lifestyle History: History Social History Marital Status: Spouse Name: N/A Number of Children: N/A Years of Education: N/A Occupational History Not on file. Social History Main Topics Tobacco Use: Never Alcohol Use: No Drug Use: No Sexually Active: Not on file Other Topics Concern Not on file Social History Narrative No narrative on file Nutrition and Activity Review: Vit K in diet: stable and low Activity: stable and low Contact sports: No Seatbelt: Yes ANTICOAG FOCUSED ASSESSMENT See doc flowsheet. PROBLEM FOCUSED EXAM: General: oriented, comfortable Eyes: conjunctive clear Extremities: no edema, pain, discoloration, capillary refill normal Neuro: grossly intact Skin: no bleeding, ecchymosis or petechiae Psychiatric: displays normal mood, affect and judgement Labs Reviewed: INR, Plt, HG and HCT Other Diagnostic Tests Reviewed: No other diagnostic tests reviewed at this visit. PATIENT EDUCATION AND COUNSELING: Patient/Family Readiness to Learn: The following pertains to: patient. Baseline Understanding: Accurately explains reasons for visit and accurately relates medica l history., Accurately describes the likely alteration in self-care reoutines/abilites resul ting from treatment., Able to provide names and reasons for taking current medications and d tejon. and Able to follow proposed treatment plan for diet, activity, and/or medication with out difficulty. Learning Needs: None identified. Barriers: None identified. Referral To: No referral required. Preferred Learning Method: Verbal and Written. Content covered: Function of Anticoagulation Clinic, Purpose of warnfarin/ heparin/ loveno x, Importance of taking prescribed dosage, Importance of regular monitoring, Reporting of me dication changes, Reporting change in tablet color/ shape, risks/ control, F actors influencing anticoagulation: (diet, ETOH, activity, health, OTC's, herbs), Notificati on of all providers/ dentists, Medications to avoid: (ASA NSAID's, OTC's, herbs, acetaminoph en precautions), Reporting signs of bleeding and Contacting Anticoag staff Educational materials given: Coumadin booklet and Verbalizes understanding of information/i nstructions given ASSESMENT & PLAN: 57 y.o. female with history of Atrial Septal Aneurysm. Warfarinization indicated: Subtherapeutic - trending up nicely. Today take 5 mg of warfarin . Weekly warfarin dose as ordered. Needs further anticoag follow up: Next visit with lab t est: 1.8.08 Monitor and adjust anticoagulant to maintain therapeutic level. documented in this encount er Plan of Treatment Not on filedocumented as of this encounter Procedures + +--------+ + + + | Procedure Name | Priori | Date/Time | Associated Diagnosis | Comments | | | ty | | | | + +--------+ + + + | INR (PT), POC | Routin | 04/08/2007 | Atrial Septal | Results for this | | | e | | Aneurysm Encounter | procedure are in the | | | | | for Long-Term | results section. | | | | | (Current) Use of | | | | | | Anticoagulants | | + +--------+ + + + documented in this encounter Results INR (PT), POC (04/08/2007) + +-------+ + + + | Component [...] | + + + + + | [facility] | [address] | [place], [place] | | | [place] [facility] | [address] | [address] | | | TESTS | | | | + + + + + | [facility] | [address] | [place], [place] | | | TESTS | [facility] | [address] | | + + + + + documented in this encounter Visit Diagnoses + + | Diagnosis | + + | Atrial septal aneurysm Aneurysm of heart (wall) | + + | senior living (current) use of anticoagulants Long-term (current) use of anticoagulants | + + documented in this encounter"
--- OUTSIDE RECORDS SUMMARY | ~2019-01-08 | XMS | Encounter Summary ---
Demographics + + + | Address | [address] | | | [place] [address] | + + + | Home Phone [...] Team Providers + +------+ + | Care Melter Supervisor Name | Role | Phone | + +------+ + PCP | Unavailable | + +------+ + Encounter Details +--------+ + + + + | Date | Type | Department | Care Team | Description | +--------+ + + + + | 03/31/ | ED Progress | | Eliezer Mueller | ED Progress Note | | 2006 | | | MD [place] [address] | | | | Note-Transc | | [address] | | | | ribed | | [place] [address] | | +--------+ + + + + [...]
--- OUTSIDE RECORDS SUMMARY | ~2019-01-08 | XMS | Encounter Summary ---
Demographics + + + | Address | [address] | | | [place] [address] | + + + | Home Phone | | + + + | Preferred Language | Unknown | + + + | Marital Status | | + + + | Sabianist Affiliation | NON | + + + | Race | White | + + + | Ethnic Group | Not or | + + + Author + + + | Author | [facility] | + + + | Organization | [facility] | + + + | Address | Unknown | + + + | Phone | Unavailable | + + + Support + + +---------+ + | Name | Relationship | Address | Phone | + + +---------+ + | Velma Trejo | ECON | Unknown | | + + +---------+ + Care Team Providers + +------+ + | Care Fire Fighter [employer] Name | Role | Phone | + [...] [address] | | | | | [address] | [place], [place] | | | | | Leeann Carney Mailcode: | [address] | | | | | OP32 Outpatient | [phone] | | | | | Clinic Building | | | | | | [place], [place] | | | | | | [address] | | | | | | [phone] | | | +--------+ + + + [...]
--- OUTSIDE RECORDS SUMMARY | ~2019-01-08 | XMS | Encounter Summary ---
Demographics + + + | Address | [address] | | | [place] [address] | + + + | Home Phone | | + + + | Preferred Language | Unknown | + + + | Marital Status | | + + + | Jehovah'S Witness Affiliation | NON | + + + | Race | White | + + + | Ethnic Group | Not or | + + + Author + + + | Author | [facility] | + + + | Organization | [facility] | + + + | Address | Unknown | + + + | Phone | Unavailable | + + + Support + + +---------+ + | Name | Relationship | Address | Phone | + + +---------+ + | Velma Trejo | ECON | Unknown | | + + +---------+ + Care Team Providers + +------+ + | Care Supervisor Lace Tearing Name | Role | Phone | + [...] SW | | | 2011 | | [facility] [address] | [address] | | | | | [place] Mailcode: CH9A | Road [place], [place] | | | | | [facility] | [address] | | | | | and Healing, | | | | | | | | | | | | [place], [place] | | | | | | [address] | | | | | | [phone] | | | +--------+ + + + [...]
--- OUTSIDE RECORDS SUMMARY | ~2019-01-08 | XMS | Clinical Summary ---
Demographics + + + | Address | [address] | | | [place] [address] | + + + | Home Phone | | + + + | Preferred Language | Unknown | + + + | Marital Status | | + + + | Alevism Affiliation | 1077 | + + + | Race | Unknown | + + + | Ethnic Group | Unknown | + + + Author + + + | Author | [facility] (Historical as of | | | 11-16-18) | + + + | Organization | [facility] (Historical as of | | | 11-16-18) [...] [place], [place] | | | | | [address] | | + + + + + Care Team Providers + +------+ + | Care Plastic Cnc Machine Operator Name | Role | Phone [...]
--- OUTSIDE RECORDS SUMMARY | ~2019-01-08 | XMS | Encounter Summary ---
Demographics + + + | Address | [address] | | | [place] [address] | + + + | Home Phone | | + + + | Preferred Language | Unknown | + + + | Marital Status | | + + + | Christianity Affiliation | NON | + + + | Race | White | + + + | Ethnic Group | Not or | + + + Author + + + | Author | [facility] | + + + | Organization | [facility] | + + + | Address | Unknown | + + + | Phone | Unavailable | + + + Support + + +---------+ + | Name | Relationship | Address | Phone | + + +---------+ + | Velma Trejo | ECON | Unknown | | + + +---------+ + Care Team Providers + +------+ + | Care Water Filtration Technician Name | Role | Phone | [...] Visit | Clinic [address] | [place] [address] | Aneurysm; Encounter | | | | [address] | [address] | for Long-Term | | | | Mailcode: OP03 | [place], [place] | (Current) Use of | | | | Outpatient Clinic | [address] | Anticoagulants | | | | [place] [address] | [phone] | | | | | [place], [place] | | | | | | [address] | | | | | | [phone] | | | +--------+---------+ + + + [...] reasons for taking current medications and d tlingit & haida. and Able to follow proposed treatment plan [...] - [facility] | [address] | [place], [place] | | | [place] [facility]ARE | [address] | [address] | | | TESTS | | | | + + + + + | [facility] | [address] | [place], [place] | | | TESTS | [facility] | [address] | | + + + + + documented in this encounter Visit Diagnoses + + | Diagnosis | + + | Atrial septal aneurysm Aneurysm of heart (wall) | + + | retirement (current) use of anticoagulants Long-term (current) use of anticoagulants | + + documented in this encounter"
--- OUTSIDE RECORDS SUMMARY | ~2019-01-08 | XMS | Encounter Summary ---
Demographics + + + | Address | [address] | | | [place] [address] | + + + | Home Phone [...] Team Providers + +------+ + | Care Apple Turner Name | Role | Phone | + +------+ + PCP | Unavailable | + +------+ + Encounter Details +--------+ + + + + | Date | Type | Department | Care Team | Description | +--------+ + + + + | 03/22/ | Air Conditioning Manager | Neurology at | Angelina Acosta MD | | | 2006 | | [facility] & | [address] | | | | | [address] | [place], [place] | | | | | [address] Mailcode: | [address] | | | | | [address] | [phone] | | | | | Health and Healing, | | | | | | | | | | | | [place], [place] | | | | | | [address] | | | | | | [phone] | | | +--------+ + + + [...]
--- OUTSIDE RECORDS SUMMARY | ~2019-01-08 | XMS | Encounter Summary ---
Demographics + + + | Address | [address] | | | [place] [address] | + + + | Home Phone [...] Team Providers + +------+ + | Care Affirmative Action Specialist Name | Role | Phone | [...] | | | | ribed | | [place] [address] | | +--------+ + + + + [...]
--- OUTSIDE RECORDS SUMMARY | ~2019-01-08 | XMS | Encounter Summary ---
Demographics + + + | Address | [address] | | | [place] [address] | + + + | Home Phone | | + + + | Preferred Language | Unknown | + + + | Marital Status | | + + + | Spiritism Affiliation | NON | + + + [...] Team Providers + +------+ + | Care Manager Chemical Name | Role | Phone | + +------+ + PCP | Unavailable | + +------+ + Encounter Details +--------+ + + + + | Date | Type | Department | Care Team | Description | +--------+ + + + + | 04/26/ | Documentati | AntiCoagulation | Shelly Lucero, | | | 2007 | on | Clinic [address] [facility] | [facility] [address] | | | | | [address] | [address] | | | | | Mailcode: OP03 | [facility] [place] | | | | | Outpatient Clinic | [address] | | | | | [place] [address] | [phone] | | | | | [place], [place] | | | | | | [address] | | | | | | [phone] | | | +--------+ + + + [...]
--- OUTSIDE RECORDS SUMMARY | ~2019-01-08 | XMS | Encounter Summary ---
Demographics + + + | Address | [address] | | | [place] [address] | + + + | Home Phone [...] + + + | Author | [facility] | + + + | Organization | [facility] | + + + | Address | Unknown | + + + | Phone | Unavailable | + + + Support + + +---------+ + | Name | Relationship | Address | Phone | + + +---------+ + | Velma Trejo | ECON | Unknown | | + + +---------+ + Care Team Providers + +------+ + | Care Dowel Sticker Operator Name | Role | Phone | [...] | | | Healing [address] | [place], [place] | | | | | [address] Mailcode: | [address] | | | | | [address] | [phone] | | | | | Health and Healing, | | | | | | [facility] | | | | | | [place], [place] | | | | | | [address] | | | | | | [phone] | | | +--------+ + + + [...]
--- OUTSIDE RECORDS SUMMARY | ~2019-01-08 | XMS | Encounter Summary ---
Demographics + + + | Address | [address] | | | [place] [address] | + + + | Home Phone | | + + + | Preferred Language | Unknown | + + + | Marital Status | | + + + | Episcopal Affiliation | NON | + + + | Race | White | + + + | Ethnic Group | Not or | + + + Author + + + | Author | [facility] | + + + | Organization | [facility] | + + + | Address | Unknown | + + + | Phone | Unavailable | + + + Support + + +---------+ + | Name | Relationship | Address | Phone | + + +---------+ + | Velma Trejo | ECON | Unknown | | + + +---------+ + Care Team Providers + +------+ + | Care Structural Biologist Name | Role | Phone | + +------+ + | Jaime Irizarry DO | PCP | Unavailable | + +------+ + Encounter Details +--------+ + + + + | Date | Type | Department | Care Team | Description | +--------+ + + + + | 01/02/ | Ancillary | Registration [address] | | | | 2006 | Reg[address]ratio | [address] | | | | | n | [address] Mailcode: RPB07 | | | | | | [place], [place] | | | | | | [address] | | | | | | [phone] | | | +--------+ + + + [...]
--- OUTSIDE RECORDS SUMMARY | ~2019-01-08 | XMS | Encounter Summary ---
Demographics + + + | Address | [address] | | | [place] [address] | + + + | Home Phone | | + + + | Preferred Language | Unknown | + + + | Marital Status | | + + + | Mormonism Affiliation | NON | + + + | Race | White | + + + | Ethnic Group | Not or | + + + Author + + + | Author | [facility] | + + + | Organization | [facility] | + + + | Address | Unknown | + + + | Phone | Unavailable | + + + Support + + +---------+ + | Name | Relationship | Address | Phone | + + +---------+ + | Velma Trejo | ECON | Unknown | | + + +---------+ + Care Team Providers + +------+ + | Care Pattern Maker Name | Role | Phone | + [...] | | | | | Procedures | [place], [place] | [facility] | | | | | TRANSTHORACI | [address] | for Health | | | | | C | Phone: | and Healing, | | | | | ECHOCARDIOGR | [phone] | Building 1 | | | | | AM, ADULT | Fax: | [place], [place] | | | | | | [phone] | [address] | | | | | | | Phone: | | | | | | | [phone] | +--------+--------+ + + + + Encounter Details +--------+ + + + + | Date | Type | Department | Care Team | Description | +--------+ + + + + | 09/17/ | Roll Scale Worker | Cardiology [facility] at | Rajinder Hogan, | Atrial septal | | 2011 | | [facility] [address] | MD [address] | aneurysm (Primary | | | | Ave Mailcode: CH9A | [place], [place] | Dx) | | | | [facility] | [address] | | | | | and Healing, | [phone] | | | | | | | | | | | Floor [place], [place] | | | | | | [address] | | | | | | [phone] | | | +--------+ + + + [...]
--- OUTSIDE RECORDS SUMMARY | ~2019-01-08 | XMS | Encounter Summary ---
Demographics + + + | Address | [address] | | | [place] [address] | + + + | Home Phone | | + + + | Preferred Language | Unknown | + + + | Marital Status | | + + + | Mandaen Affiliation | NON | + + + | Race | White | + + + | Ethnic Group | Not or | + + + Author + + + | Author | [facility] | + + + | Organization | [facility] | + + + | Address | Unknown | + + + | Phone | Unavailable | + + + Support + + +---------+ + | Name | Relationship | Address | Phone | + + +---------+ + | Velma Trejo | ECON | Unknown | | + + +---------+ + Care Team Providers + +------+ + | Care Bar Waiter/Waitress Name | Role | Phone | + [...] | | | | | Procedures | [place], [place] | [facility] | | | | | TRANSTHORACI | [address] | for Health | | | | | C | Phone: | and Healing, | | | | | ECHOCARDIOGR | [phone] | Building 1 | | | | | AM, ADULT | Fax: | [place], [place] | | | | | | [phone] | [address] | | | | | | | Phone: | | | | | | | [phone] | +--------+--------+ + + + + Encounter Details +--------+ + + + + | Date | Type | Department | Care Team | Description | +--------+ + + + + | 11/05/ | Hospital | Cardiac | | | | 2011 | Encounter | Non-Invasive Testing | | | | | | at [facility] [address] | | | | | | [address] Mailcode: | | | | | | [address] | | | | | | Health and [facility], | | | | | | [facility] | | | | | | [place], [place] | | | | | | [address] | | | | | | [phone] | | | +--------+ + + + [...]
--- OUTSIDE RECORDS SUMMARY | ~2019-01-08 | XMS | Encounter Summary ---
Demographics + + + | Address | [address] | | | [place] [address] | + + + | Home Phone | | + + + | Preferred Language | Unknown | + + + | Marital Status | | + + + | Lutheran Affiliation | NON | + + + [...] Team Providers + +------+ + | Care Floor Refinisher Name | Role | Phone | + [...] Visit | Clinic [address] | BUSINESS INSTRUCTOR [address] | Aneurysm; Encounter | | | | [address] | [address] | for Long-Term | | | | Mailcode: OP03 | [place], [place] | (Current) Use of | | | | Outpatient Clinic | [address] | Anticoagulants | | | | [place] [address] | [phone] | | | | | [place], [place] | | | | | | [address] | | | | | | [phone] | | | +--------+---------+ + + + [...] provider is unavailable, call and ask the booster operator for the Cupola Operator on-call. documented in this encounter Progress Notes [...] [facility] | [address] | [place], [place] | | | [place] [facility] CARE | [address] | [address] | | | TESTS | | | | + + + + + | [facility] | [address] | [place], [place] | | | TESTS | [facility] | [address] | | + + + + + documented in this encounter Visit Diagnoses + + | Diagnosis | + + | Atrial septal aneurysm Aneurysm of heart (wall) | + + | detention (current) use of anticoagulants Long-term (current) use of anticoagulants | + + documented in this encounter"
--- OUTSIDE RECORDS SUMMARY | ~2019-01-08 | XMS | Encounter Summary ---
Demographics + + + | Address | [address] | | | [place] [address] | + + + | Home Phone [...] + + + | Author | [facility] | + + + | Organization | [facility] | + + + | Address | Unknown | + + + | Phone | Unavailable | + + + Support + + +---------+ + | Name | Relationship | Address | Phone | + + +---------+ + | Velma Trejo | ECON | Unknown | | + + +---------+ + Care Team Providers + +------+ + | Care Quality Review Trainer Name | Role | Phone | + [...] | | 2011 | Only | [address] [facility] | [phone] | | | | | [address] | | | | | | [place], [place] | | | | | | [address] | | | +--------+ + + + [...] + + | [facility] | [address] | [place], [place] | | | CARDIOLOGY | [address] | [address] | | + + + + + documented in this encounter Visit Diagnoses Not on filedocumented in this encounter"
--- OUTSIDE RECORDS SUMMARY | ~2019-01-08 | XMS | Encounter Summary ---
Demographics + + + | Address | [address] | | | [place] [address] | + + + | Home Phone [...] + + + | Author | [facility] | + + + | Organization | [facility] | + + + | Address | Unknown | + + + | Phone | Unavailable | + + + Support + + +---------+ + | Name | Relationship | Address | Phone | + + +---------+ + | Velma Trejo | ECON | Unknown | | + + +---------+ + Care Team Providers + +------+ + | Care Chargeback Analyst Name | Role | Phone | [...] | Parkinsonism | | 2006 | | [facility] Health & | [address] | | | | | Healing [address] | [place], [place] | | | | | [address] Mailcode: | [address] | | | | | [address] | [phone] | | | | | Health and Healing, | | | | | | [facility] | | | | | | Floor [place], [place] | | | | | | [address] | | | | | | [phone] | | | +--------+ + + + [...]
[~2019-01-08 01:02] MED LIST: ADDERALL 20 MG20 MG PO; ADDERALL 30 MG30 MG PO; ALPRAZOLAM0.5 MG PO; AMLODIPINE-BEN1 EACH PO; AMPHETAMINE SAL15 MG PO; CYCLOBENZAPRINE10 MG PO; FENOFIBRIC ACI135 MG PO; FLUOXETINE HCL20 MG PO; HYDROCODON-ACE1 EA10 PO; LYRICA100 MG PO; LYRICA200 MG PO; METOPROLOL SUC200 MG PO; PEPCID20 MG PO; POTASSIUM CHLO20 ME1 PO; QUININE SULFAT324 MG PO; RIZATRIPTAN5 M1 PO; SUDOGEST30 MG PO; TRAZODONE HCL100 MG PO; VALACYCLOVIR500 MG PO; WARFARIN SODIUM5 MG PO; XANAX XR1 MG PO
--- OUTSIDE RECORDS SUMMARY | 2019-01-08 01:04 | XMS ---
PreManage Notification: ASHLIE JUÁREZ Security Entry Rep Events No recent Security Events currently on file CRITERIA MET - PDMP CARE PROVIDERS Harvinder Irizarry Current PHONE: Unknown Zora has no Care Guidelines for this patient. EBrando VISIT COUNT (12 MO.) 2 RYANNE Henry TOTAL 2 NOTE: Visits indicate total known visits. ED/UCC VISIT TRACKING (12 MO.) 01/08/2019 01:02 [place] TYPE: Emergency COMPLAINT: - FLANK PAIN 01/08/2018 13:39 [place] TYPE: Emergency COMPLAINT: - LOW BACK/R LEG PAIN,NON INJURY DIAGNOSES: - Allergy status to narcotic agent status - Allergy status to other antibiotic agents status - Lumbago with sciatica, right side - Other exterminator termite (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 - Essential (primary) hypertension - Low back pain - Allergy status to other drugs, medicaments and biological substances status INPATIENT VISIT TRACKING (12 MO.) No inpatient visits to display in this time frame [email or web address]
[2019-01-08] MEDS ORDERED: FLOMAX0.4 MG PO (02:57)
[2019-01-08] MEDS ORDERED: NORCO 5-325 TA1 EACH PO (02:57)
[2019-01-08] MEDS ORDERED: ONDANSETRON ODT4 MG SL (02:57)
== END 2019-01-08 03:21 | disposition home or self-care (01) ==
LOC: ED 01:02
DX: N13.2 Hydronephrosis with renal and ureteral calculous obstruction (principal); I10 Essential (primary) hypertension; Z90.710 Acquired absence of both cervix and uterus; Z88.5 Allergy status to narcotic agent; Z88.1 Allergy status to other antibiotic agents; Z88.8 Allergy status to other drugs, medicaments and biological substances; Z79.899 Other long term (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
CPT/HCPCS: 74176; 80053; 81001; 85025; 99284-25; J1885; J2405; J7040

== ENCOUNTER 2022-10-05 09:32 | Emergency (ER) | payer MEDICARE ==
[~2022-10-05] VITALS: Ht 167.6 cm; Wt 81.1 kg
[~2022-10-05 09:32] MED LIST changes: +FLOMAX0.4 MG PO; +NORCO 5-325 TA1 EACH PO; +ONDANSETRON ODT4 MG SL; +PERCOCET 5-3251 EACH PO
--- OUTSIDE RECORDS SUMMARY | 2022-10-05 09:34 | XMS ---
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 Jeniffer VISIT COUNT (12 MO.) Bernabe Henry TOTAL 1 NOTE: Visits indicate total known visits. ED/UCC VISIT TRACKING (12 MO.) 10/05/2022 09:[address] [facility] [place] TYPE: Emergency COMPLAINT: - GLF,HEAD,BACK PAIN INPATIENT VISIT TRACKING (12 MO.) No inpatient visits to display in this time frame [email or web address]
[2022-10-05 12:35] VITALS: BP 129/75
--- NOTE | 2022-10-05 22:54 | EKG ---
[facility] [address] [place] [address] Signed Sinus rhythm with occasional premature ventricular complexes Left axis deviation Moderate voltage criteria for LVH, may be normal variant ( R in aVL , Vern product ) Cannot rule out Anterior infarct , age undetermined Abnormal ECG When compared with ECG of 29-JAN-2019 13:55, premature ventricular complexes are now present QT has lengthened Confirmed by Aleks Bajwa MD () on 10/05/2022 10:54:13 PM Electronically Signed By: ALEKS BAJWA MD 10/05/22 2254 PATIENT NAME: ASHLIE JUÁREZ Electrocardiogram DATE OF : 46 PHYSICIAN: ALEKS BAJWA MD REPORT #: [id number] REPORT IS CONFIDENTIAL AND NOT TO BE RELEASED WITHOUT AUTHORIZATION
== END 2022-10-05 12:35 | disposition home or self-care (01) ==
LOC: ED 09:32
DX: S70.01XA Contusion of right hip, initial encounter (principal); I10 Essential (primary) hypertension; W19.XXXA Unspecified fall, initial encounter; Z88.5 Allergy status to narcotic agent; Z88.8 Allergy status to other drugs, medicaments and biological substances; Z79.899 Other long term (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
CPT/HCPCS: 36415; 71045; 72170; 80053; 81003; 84484; 85025; 93005; 93010; 99284 25; A9270

== ENCOUNTER 2023-08-26 16:42 | Inpatient (IN) | payer MEDICARE ==
[2023-08-26] VITALS (9 sets, daily range): BP systolic 155–162; BP diastolic 95–101
[~2023-08-26] VITALS: Ht 167.6 cm; Wt 69.3 kg
[~2023-08-26 16:42] MED LIST changes: +AMLODIPINE-BEN1 EAC3 PO; +DEXTROAMP-AMPHE30 MG PO; +GABAPENTIN600 MG PO; +PREGABALIN225 MG PO; +PROCHLORPERAZIN10 MG PO; +SYSTANE HYDRATI10 ML OU; +TIZANIDINE HCL2 MG PO
--- OUTSIDE RECORDS SUMMARY | 2023-08-26 16:44 | XMS ---
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 Jeniffer VISIT COUNT (12 MO.) 4 [facility] TOTAL 4 NOTE: Visits indicate total known visits. ED/UCC VISIT TRACKING (12 MO.) 08/26/2023 16:42 [facility] [place] TYPE: Emergency COMPLAINT: - POSSIBLE STROKE 08/08/2023 03:00 [facility] [place] TYPE: Emergency COMPLAINT: - FALL DIAGNOSES: - Allergy status to narcotic agent - Allergy status to other drugs, medicaments and biological substances - Cervicalgia - Essential (primary) hypertension - Fall on same level, unspecified, initial encounter - Fibromyalgia - Headache, unspecified - Hemiplegia and hemiparesis following cerebral infarction affecting right dominant side - Limitation of activities due to disability - Other penitentiary (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 - Unspecified injury of head, initial encounter 12/24/2022 09:39 [facility] [place] TYPE: Emergency COMPLAINT: - FALL 10/05/2022 09:33 [facility] [place] TYPE: Emergency COMPLAINT: - GLF,HEAD,BACK PAIN DIAGNOSES: - Allergy status to narcotic agent - Allergy status to other drugs, medicaments and biological substances - Contusion of right hip, initial encounter - Dorsalgia, unspecified - Essential (primary) hypertension - Other watermelon 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 supervisor (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 - Unspecified fall, initial encounter INPATIENT VISIT TRACKING (12 MO.) 12/24/2022 09:40 [facility] [place] TYPE: Observation COMPLAINT: - LUMBQAR FRACTURE DIAGNOSES: - Contact with and (suspected) exposure to COVID-19 - Essential (primary) hypertension - Fall on same level, unspecified, initial encounter - Fibromyalgia - Low back pain, unspecified - Low back pain, unspecified - Other specified behavioral and emotional disorders with onset usually occurring in childhood and adolescence - Stable burst fracture of T11-T12 vertebra, initial encounter for closed fracture [email or web address]
[2023-08-26 16:53] LABS: BASOPHILS 0.5 % (0-2); EOSINOPHILS 0.5 % (0-6); HEMATOCRIT 44.9 % (35.0-50.0); HEMOGLOBIN 15.2 g/dL (12.0-18.0); LYMPHOCYTES 26.5 % (24-44); MCHC 33.9 g/dl (30-36); MCV 91.4 fl (81-99); MONOCYTES 6.6 % (0-12); NEUTROPHILS 65.9 % (39-80); PLATELET COUNT 270 K/uL (140-440); RBC 4.91 M/ul (4.3-5.7); RDW 14.4 (10.5-15.0)
[2023-08-26 17:04] LABS: INR 1.06 (0.80-1.30); PROTIME 13.4 Sec (11.2-14.2)
[2023-08-26] MEDS ORDERED: ondansetron HCL 4 MG/2 ML VIAL ONE (17:09)
[2023-08-26 17:11] LABS: ALBUMIN 4.1 g/dL (3.4-5.0); ALBUMIN/GLOBULIN RATIO 1.11 (1.1-2.4); ANION GAP 16.8 (7-21); BILIRUBIN, TOTAL 0.5 ng/dL (0.2-1.0); CALCIUM 9.2 mg/dL (8.5-10.1); CREATININE, SERUM 0.75 mg/dL (0.55-1.02); POTASSIUM 2.8 mmol/L (3.5-5.1); PROTEIN, TOTAL 7.8 g/dL (6.4-8.2)
[2023-08-26] MEDS ORDERED: ondansetron HCL 4 MG/2 ML VIAL IV ONE (17:15)
[2023-08-26] MEDS ORDERED: POTASSIUM CHLORIDE 10 MEQ/100 ML BAG IV SCH (18:00)
[2023-08-26 19:41] LABS: BILIRUBIN, URINE NEGATIVE (negative); BLOOD/HGB, URINE NEGATIVE (Negative); KETONE, URINE NEGATIVE (Negative); LEUK ESTERASE, URINE NEGATIVE (negative); NITRITE, URINE NEGATIVE (negative)
[2023-08-26] MEDS ORDERED: bisacodyL 10 MG SUPP PR PRN (20:00)
[2023-08-26] MEDS ORDERED: ondansetron HCL 4 MG/2 ML VIAL IV PRN (20:00)
[2023-08-26] MEDS ORDERED: ACETAMINOPHEN 500 MG TAB PO PRN (20:00)
[2023-08-26] MEDS ORDERED: hydrALAZINE HCL 20 MG/ML VIAL IV PRN (20:00)
[2023-08-26 20:27] LABS: INFLUENZA B NAA NEGATIVE (NEGATIVE); RESPIRATORY SYNCYTIAL VIR NAA NEGATIVE (NEGATIVE)
[2023-08-26 20:29] LABS: CHOLESTEROL/HDL RATIO 4.4; TSH, 3RD GENERATION 1.526 uIU/mL (0.358-3.740)
--- NOTE | 2023-08-26 20:35 | NUR ---
PATIENT ARRIVED VIA STRETCHER WITH COMBINATION BUILDING INSPECTOR, PATIENT IS AWAKE AND ALERT SHE IS ORIENTED TO MONTH, PLACE, AND SELF. SHE IS ON OXYMASK AT 8L, TITRATED DOWN TO 5L ON ARRIVAL. PATIENT ASKED FOR WARM BLANKET, PROVIDED. REPORT FROM ED. NURSE AND SKIN CHECK COMPLETE, PATIENT ALSO HAS PURWICK IN PLACE FROM ED.
[2023-08-26] MEDS ORDERED: ALBUTEROL SULFATE 0.083% 3 ML VIAL INH PRN (20:45)
[2023-08-26] MEDS ORDERED: PROCHLORPERAZINE EDISYLATE 10 MG/2 ML VIAL IV PRN (20:45)
[2023-08-26] MEDS ORDERED: DOXYCYCLINE HYCLATE 100 MG in DEXTROSE 5% 100 ML IV SCH (21:00)
[2023-08-26] MEDS ORDERED: MELATONIN 3 MG TAB PO PRN (21:00)
[2023-08-26] MEDS ORDERED: ALBUTEROL/IPRATROPIUM 3 ML NEB INH SCH (21:00)
[2023-08-26 21:09] LABS: BASE EXCESS, BLOOD GAS -2.1 mmol/L (-2-2); HCO3, BLOOD GAS 22.8 mmol/L (22-26); O2 SATURATION, BLOOD GAS 89.9 % (95.0-100.0); PCO2, BLOOD GAS 38.9 mmHg (35-45); PH, BLOOD GAS 7.38 (7.35-7.45); PO2, BLOOD GAS 60 mmHg (80-100)
[2023-08-26] MEDS ORDERED: PIPERACILLIN/TAZOBACTAM 3.375 GM VIAL ONE (21:42)
[2023-08-26] MEDS ORDERED: DOXYCYCLINE HYCLATE 100 MG/10 ML VIAL ONE (21:43)
[2023-08-26] MEDS ORDERED: PIPERACILLIN/TAZOBACTAM 3.375 GM in DEXTROSE 5% 100 ML IV SCH (22:00)
--- NOTE | 2023-08-26 22:00 | NUR ---
CALLED PATIENTS SON PER ED REQUEST, NO ANSWER FEFT MESSAGE WITH CCU PHONE NUMBER FOR HIM TO CALL FOR UPDATES.
--- NOTE | 2023-08-26 23:00 | NUR ---
PATIENT ASKED TO BE ABLE TO CALL HER . THIS RN DIALED AND HELD PHONE FOR HER TO TALK WITH SPOUSE ALMAZ, HE THEN SPOKE WITH THIS RN AND SAID "SHE SOUNDS A LOT BETTER NOW"
[2023-08-27] VITALS (25 sets, daily range): BP systolic 147–173; BP diastolic 78–97
--- NOTE | 2023-08-27 00:03 | NUR ---
PATIENT NOTED TO DESATURATE WHEN PULLING OFF OXYMASK, THIS RN DISCUSSED NEED AND PURPOSE, PATIENT SAID "OK", PATIENT WAS NOTED TO BE SLIGHTLY DISORIENTED, RE-ORIENTED EASILY.
--- NOTE | 2023-08-27 02:44 | NUR ---
ROUNDING ON PATIENT, SHE IS NOTED TO BE MILDLY RESTLESS, USEING RIGHT ARM/HAND TO MOVE BLANKETS AROUND AND PULL DOWN HER OXYMASK, DISCUSSED WITH PATIENT NEED TO KEEP OXYGEN ON AT THIS TIME, SHE IS AGREEABLE.
[2023-08-27] MEDS ORDERED: ARTIFICIAL TEARS 15 ML BTL OU PRN (03:00)
--- NOTE | 2023-08-27 03:58 | NUR ---
ORAL CARE PROVIDED, PATIENT CONTINUES TO REMOVE OXYMASK, N.C. PLACED INSTEAD, PATIENT REPORTS SHE IS COMFORTABLE AFTER REPOSITIONING. ANSWERS QUESTIONS APPROPRIATELY. NO NEW DEFICITS FROM ADMISSION NOTED ON THIS ASSESSMENT.
--- NOTE | 2023-08-27 05:25 | NUR ---
SON CALLED AND WAS UPDATED AT THIS TIME.
[2023-08-27 05:30] LABS: BASOPHILS 0.3 % (0-2); EOSINOPHILS 0.1 % (0-6); HEMATOCRIT 41.8 % (35.0-50.0); HEMOGLOBIN 13.9 g/dL (12.0-18.0); LYMPHOCYTES 13.1 % (24-44); MCH 30.3 (27-36); MCHC 33.2 g/dl (30-36); MCV 91.3 fl (81-99); MONOCYTES 7.5 % (0-12); PLATELET COUNT 268 K/uL (140-440); RBC 4.58 M/ul (4.3-5.7); RDW 14.1 (10.5-15.0)
[2023-08-27 05:42] LABS: ANION GAP 15.2 (7-21); BUN/CREATININE RATIO 15.94 (6.0-28.6); CREATININE, SERUM 0.69 mg/dL (0.55-1.02); POTASSIUM 3.2 mmol/L (3.5-5.1)
[2023-08-27] MEDS ORDERED: PIPERACILLIN/TAZOBACTAM 3.375 GM VIAL ONE (06:03)
[2023-08-27] MEDS ORDERED: POTASSIUM CHLORIDE IV SCH (07:00)
[2023-08-27] MEDS ORDERED: DEXTROSE 5% IV SCH ×2 (07:00→09:00)
[2023-08-27] MEDS ORDERED: LIDOCAINE HCL IV SCH (07:00)
--- NOTE | 2023-08-27 07:13 | EKG ---
[facility] [address] [place] [address] Signed Sinus rhythm with 1st degree AV block Left anterior fascicular block Possible Anterolateral infarct (cited on or before 05-OCT-2022) Abnormal ECG When compared with ECG of 24-DEC-2022 09:56, Vent. rate has increased BY 30 BPM Questionable change in initial forces of Lateral leads Confirmed by Tyrel Caceres ([id number]) on 08/27/2023 7:12:58 AM Electronically Signed By: TYREL CACERES MD 08/27/23 0713 PATIENT NAME: ASHLIE JUÁREZ Electrocardiogram DATE OF : 46 PHYSICIAN: TYREL CACERES MD REPORT #: [id number] REPORT IS CONFIDENTIAL AND NOT TO BE RELEASED WITHOUT AUTHORIZATION
[2023-08-27] MEDS ORDERED: POTASSIUM CHLORIDE 40 MEQ,LIDOCAINE HCL 1% 40 MG in DEXTROSE 5% 500 ML IV ONE (07:15)
--- NOTE | 2023-08-27 07:55 | NUR ---
IN PATIENT'S ROOM FOR AM ASSESSMENT AND VITALS. PT IS DROWSY, BUT DOES AWAKEN TO PAINFUL STIMULI AND LOUD VOICE. PT HAS RIGHT SIDED GAZE. PT WILL FOLLOW COMMAND OF SQUEEZING OF RIGHT HAND, BUT UNABLE TO SQUEEZE WITH LEFT HAND AT ALL. PT REMAINS ON 2 L NC. SINUS RHYTHM 70s ON MONITOR. BP THIS AM 158/88. IV ZOSYN INFUSING AT THIS TIME. NIH TO BE COMPLETED. WILL CONTINUE TO MONITOR.
[2023-08-27] MEDS ORDERED: D5W 1/2 NS + 10 KCL 1,000 ML IV SCH (08:15)
[2023-08-27] MEDS ORDERED: MAGNESIUM SULFATE 2 GM/50 ML BAG IV ONE (08:15)
[2023-08-27] MEDS ORDERED: ENOXAPARIN SODIUM 40 MG/0.4 ML SYR SUB-Q SCH (09:00)
[2023-08-27] MEDS ORDERED: DOXYCYCLINE HYCLATE IV SCH (09:00)
--- NOTE | 2023-08-27 09:32 | NUR ---
PHYS THERAPY IN ROOM WITH PATIENT AND WITH HELP, HELPING PATIENT TO SIDE OF BED. PATIENT IS WEAK, AND LEANS TO THE LEFT. PT'S NIGHTGOWN FROM HOME TAKEN OFF AND NEW GOWN PLACED. PATIENT THEN TRANSFERRED TO CHAIR BY PHYS THERAPY. ONCE IN CHAIR, PATIENT STATES THAT SHE IS FEELING SICK TO HER STOMACH AND STARTS TO VOMIT. PT VOMITS ABOUT 50-75 ML LIQUID GREEN EMESIS WITH SOME FOOD MATERIAL NOTED. PT HAS BEEN NPO SINCE ARRIVAL TO HOSPITAL. PRN NAUSEA MEDICATION GIVEN. PT REMAINS IN CHAIR WITH LEGS ELEVATED AND HEEL PROTECTORS PROVIDED. PT REMAINS ON 2 L NC. LUNGS AUSCULTATED AFTER EMESIS AND NO RHONCHI NOTED. PT'S MOUTH CLEANED EARLIER AND BACK OF MOUTH SUCTIONED. SOME THICK SECRETIONS WERE NOTED TO BE SITTING BACK THERE AND SUCTIONED OUT OF MOUTH. PT DID GAG WHEN CLEANING BACK OF MOUTH BUT GAG DID SEEM WEAK.
--- NOTE | 2023-08-27 11:41 | NUR ---
PATIENT'S SON SHEYLA HAS ARRIVED AND IS NOW IN ROOM WITH PATIENT. UPDATE PROVIDED AND ALL QUESTIONS ANSWERED BEST POSSIBLE. PATIENT IS TALKING MORE, BUT UNABLE TO UNDERSTAND ALL OF WHAT PATIENT IS SAYING. PATIENT DOES DENY PAIN WHEN ASKED AND COMMENTS ON THIS NURSE'S EYE COLOR. PT STILL STATES THE YEAR INCORRECTLY, STATING 1987, BUT DOES STATE MAY FOR THE MONTH WHICH IS CORRECT. PT ALSO STATES HER SON'S NAME CORRECTLY AND SAYS, "LACIE CARRION HOW ARE YOU?" WHEN PATIENT TOLD THAT HE IS NOW IN THE ROOM. SP02 IS 97-98% ON 2LNC AND O2 TURNED OFF. WILL MONITOR TO SEE HOW PATIENT DOES ON ROOM AIR. PT'S LIPS CLEANED AND CHAPSTICK PROVIDED. SMALL BLEEDING AREA NOTED ON LEFT CORNER OF MOUTH.
[2023-08-27] MEDS ORDERED: PHARMACY RENAL DOSE ADJUSTMENT 1 DOSE MISC PO SCH (12:00)
--- NOTE | 2023-08-27 13:00 | NUR ---
PYSICAL THERAPY IN PT ROOM TO MOVE PT BACK TO BED. PT IS WEAK AND LEANS TOWARD THE LEFT SIDE. PT IS MOVED TO RA AND SATS ARE IN THE 90'S. ORAL CARE IS PROVIDED. NO FURTHERS NEEDS AT THIS TIME.
--- NOTE | 2023-08-27 14:00 | NUR ---
NEW IV STARTED IN THE LEFT FOREARM, DRAWS BACK AND FLUSHED WITH 10ML NORMAL SALINE. PT TOLERATED WELL. PT. STATES HER BACK HURTS AND THAT SHE IS COLD. PT REPOSTIONED IN BED AND TWO WARM BLANKETS ARE PROVIDED. PT HAS NO FURTHER NEEDS AT THIS TIME. CALL LIGHT IS WITHIN REACH.
--- NOTE | 2023-08-27 14:30 | NUR ---
EVENING ASSESSMENT COMPLETE.PT NOTED TO HAVE REDNESS IN HER RIGHT EYE THAT IS CAUSING IRRITATION. SAT'S IN HIGH 90'S ON ROOM AIR. PT DENIES ANY PAIN. PT IS AWAKE WITH EYES OPEN LYING IN BED. PT SEEMS TO HAVE INCREASED ORIENTATION AND IS MORE VERBALLY CLEAR COMPARED TO THIS MORNING. PT FAMILY STILL AT BEDSIDE. NO NEEDS AT THIS TIME. CALL LIGHT WITHIN REACH.
--- NOTE | 2023-08-27 14:45 | NUR ---
PATIENT SLEEPING AT THIS TIME AND APPEARS COMFORTABLE. IV ZOSYN STARTED PER EMAR. PT REMAINS ON ROOM AIR AND SP02 IS 98%. PUREWICK IN PLACED AND ABOUT 200 ML YELLOW URINE IN CANISTER AT THIS TIME. HR IN THE 60s, SINUS RHYTHM. IVF CONTINUE AT 100 ML/HR. NIH AROUND 1330 WAS 20. PT REMAINS NPO. ORAL CARE BEING PROVIDED.
[2023-08-27] MEDS ORDERED: PREGABALIN300 MG PO (15:10)
[2023-08-27] MEDS ORDERED: GABAPENTIN600 MG PO (15:17)
--- NOTE | 2023-08-27 15:59 | NUR ---
medications recoinciled using pharmacy records and physician chart notes
--- NOTE | 2023-08-27 16:00 | NUR ---
PT FAMILY AT BEDSIDE. FAMILY PROVIDED WITH UPDATES AND PLAN OF CARE. ALL QUESTIONS WERE ADDRESSED. PT REPOSITONED IN BED, ORAL CARE PROVIDED, FACE WASHED WITH WARM WASHCLOTH. NO FURTHER NEEDS AT THIS TIME. CALL LIGHT WITHIN REACH.
--- NOTE | 2023-08-27 17:48 | NUR ---
NOTED ON SECURITY SYSTEM ANALYST AT 1733 THAT PATIENT'S HEART RHYTHM CHANGED FROM NORMAL SINUS RHYTHM TO AN ACCELERATED RHYTHM, WITH T WAVE INVERSIONS IN LEADS II, III, AND AVF. PT DENIES CHEST PAIN OR SHORTNESS OF BREATH. DR. BAJWA CALLED AND EKG ORDERED AND DONE-PLACED ON CHART. PT STILL TALKING ABOUT A BLACK SPIDER THAT SHE KEEPS THINKING SHE IS SEEING. REASSURED PATIENT THAT THERE ARE NO VISIBLE SPIDERS AT THIS TIME. PT IS ALSO ASKING FOR HER ALMAZ, WHO HAS LEFT FOR THE DAY. DR. BAJWA COMES TO BEDSIDE AND ORDERS TO BE PLACED FOR LABS. PT REMAINS NPO. IVF CONTINUE. WILL CONTINUE TO MONITOR CLOSELY. BED ALARM FOR SAFETY.
[2023-08-27 18:35] LABS: ANION GAP 16.3 (7-21); BUN/CREATININE RATIO 14.1 (6.0-28.6); CALCIUM 8.8 mg/dL (8.5-10.1); CREATININE, SERUM 0.78 mg/dL (0.55-1.02); MAGNESIUM 2.1 mg/dL (1.8-2.4); POTASSIUM 3.3 mmol/L (3.5-5.1)
[2023-08-27] MEDS ORDERED: POTASSIUM CHLORIDE 10 MEQ/100 ML BAG IV SCH (19:15)
--- NOTE | 2023-08-27 19:44 | NUR ---
PATIENT ALERT ON THIS RN ENTRANCE TO ROUND AND START POTASSIUM REPLACEMENT PER ORDER. PATIENT TALKED CLEARLY ABOUT HER VISITORS, SPOUSE AND SON INTO VISIT. DOES NOT GIVE VERBAL COMPLAINTS WHEN ASKED ABOUT PAIN. WHEN COMPLETED ASSESSMENT, DISCUSSED SLEEPING OVERNIGHT, PATIENT SAID "YES I AM TIRED" SHE THEN CLOSED HER EYES, ASSESSMENT COMPLETE. NO NEW DEFICITS FROM SHIFT REPORT.
--- NOTE | 2023-08-27 20:01 | NUR ---
PATIENT ORIENTED TO MONTH, SELF, PLACE AND FAMILY VISITNG. THIS RN ASKED PATIENT IF SHE WOULD LIKE TO LILSTEN TO MUSIC, IF THAT MIGHT HELP HER SLEEP, SHE SAID, "YES", THIS RN ASKED "WHAT KIND OF MUSIC DO YOU LIKE?" SHE SAID COUNTRY. COUNTRY CHANNEL ON TV NOW. PATIENT ASKED ABOUT HER FAMILY, THIS RN SAID THEY WILL BE BACK TOMORROW, SHE SHE GAVE A THUMBS UP.
--- NOTE | 2023-08-27 21:21 | NUR ---
TALKED WITH OVER THE PHONE, IN REGARDS TO PATIENT NOT SLEEPING WELL AND PAIN MANAGEMENT, NEW ORDERS PROVIDED, SEE EMAR
[2023-08-27] MEDS ORDERED: ACETAMINOPHEN 1,000 MG/100 ML VIAL IV ONE (21:30)
--- NOTE | 2023-08-27 22:13 | EKG ---
[facility] [address] [place] [address] Signed Accelerated Junctional rhythm Nonspecific ST and T wave abnormality Abnormal ECG When compared with ECG of 26-AUG-2023 17:24, Junctional rhythm has replaced Sinus rhythm Borderline criteria for Anterior infarct are no longer present Borderline criteria for Anterolateral infarct are no longer present T wave inversion now evident in Inferior leads Confirmed by Aleks Bajwa MD () on 08/27/2023 10:12:45 PM Electronically Signed By: ALEKS BAJWA MD 08/27/23 2213 PATIENT NAME: ASHLIE JUÁREZ Electrocardiogram DATE OF : 46 PHYSICIAN: ALEKS BAJWA MD REPORT #: [id number] REPORT IS CONFIDENTIAL AND NOT TO BE RELEASED WITHOUT AUTHORIZATION
--- NOTE | 2023-08-27 22:24 | NUR ---
PATIENT REPOSITIONED, PILLOWS TO SUPPORT, ORAL CARE, SUCTIONING, SMALL AMOUNT OF WHITE SECREATIONS, THICK, PATIENT ASSISTED TO CALL HER SPOUSE ALMAZ AT 2200, HE VERBALIZED APPRECIATION FOR THE CALL AND UPDATE. PATIENT VERBALIZED THAT SHE IS COMFORTABLE NOW, SAID "NO" WHEN ASKED IF SHE HAD ANY NEEDS AT THIS TIME. ALMAZ REPORTS HER LAST BM WAS SUNDAY PRIOR TO HOSPITAL ARRIVAL.
--- NOTE | 2023-08-27 23:17 | NUR ---
PATIENT NOW RESTING IN BED, EYES CLOSED RESPIRATION RATE 16/MIN, 95%OXYGEN SATURATION ON ROOM AIR.
--- NOTE | 2023-08-27 23:38 | NUR ---
PATIENT NOTED TO COUGH, THIS RN INTO ROOM, PATIENT NOTED TO HAVE SECRECTIONS IN THROUGHT, SUCTION PROVIDED, WHEN ASKED IF SHE FELT NAUSEA/UPSET STOMACH, SHE SAID "YES", PRN COMPAZINE PROVIDED AT THIS TIME.
--- NOTE | 2023-08-27 23:59 | NUR ---
PATIENT ASKED "DOES YOUR STOMACH FEEL BETTER?" SHE SAID, "YES", PATIENT NOW RESTING IN BED EYES CLOSED RR 14/MIN, NO DISTRESS, HEAD OF BED ELEVATED AT 30 DEGREES FOR ASPIRATION PRECAUTIONS. PATIENT 97% OXYGEN SATURATION ON ROOM AIR AT THIS TIME.
[2023-08-28] VITALS (15 sets, daily range): BP systolic 140–187; BP diastolic 82–113
--- NOTE | 2023-08-28 02:16 | NUR ---
CALLED TO UPDATE PATIENT HAS HAD ONE EPISODE OF NAUSEA AROUND MIDNIGHT WITH PRN, SHE HAS SINCE HAD MORE SECRETIONS, SUCTIONING ORAL CAVITY FREQUENTLY WITH YONKER, PATIENT REPORTS FEELING SHE HAS SOMETHING STUCK IN HER THROAT, SHE ATTEMPTS TO CLEAR HER THROAT, HER ABILITY IS WEAK, ALSO ATTEMPT TO COUGH VERY WEAK, RESPIRATORY GILLIAN CALLED TO CONSULT TO IF DEEP SUCTION WAS A POTENTIAL SOLUTION, GILLIAN DEEP SUCTION WITHOUT SUCCESS OF CLEARING ANYTHING. PATIENT CONTINUES TO BE ANXIOUS AND RESTLESS ABOUT SITUATION. SHE ASK, "WHO CAN I TALK TO TO GET HELP?" THIS RN EXPLAINED THAT AT THIS TIME WE WILL CONTINUE TO SUCTION ORAL CAVITY" ... SAID THERE IS REALLY NOTHING ELSE TO DO OF YET, SHE REMAINS STABLE ON ROOM AIR IN MID 90'S OXYGEN SATURATION. AND RESPIRATIONS ARE WNL. NO INCREASE IN WORK OF BREATHING, SPEECH THERAPY WILL SEE PATIENT IN AM AND BE ABLE TO ADVISE TO BEST COARSE OF ACTION.
--- NOTE | 2023-08-28 02:30 | NUR ---
PATIENT RESTING IN BED, HOB AT 60 DEGRESS AT THIS TIME FOR ASPIRATION CONCERNS, HER EYES ARE CLOSED, NO DISTRESS NOTED, RESPIRATORY RATE 15/MIN AND OXYGEN SATURATION IS 96% ON ROOM AIR AT THIS TIME.
--- NOTE | 2023-08-28 03:59 | NUR ---
PATIENT REPOSITIONED, EYE DROPS ADMINISTERED, PATIENT CONTINUES TO SAY "I NEED MORE SLEEP" SHE HAVING DIFFICULTY FALLING ASLEEP AT THIS TIME.
--- NOTE | 2023-08-28 05:16 | NUR ---
DISCUSSED WITH PATIENT THE PLAN OF CARE FOR TODAY, SHE SAID "I A LITTLE NREVOUS" THIS RN ASSURED HER THAT ALL THE IMAGING/THERAPIES PLANNED FOR TODAY WILL HELP THE DOCTOR KNOW HOW TO BEST HELP YOU. PATIENT SAID "YES, THAT WILL BE GOOD"
[2023-08-28 05:21] LABS: BASOPHILS 0.5 % (0-2); EOSINOPHILS 0.1 % (0-6); HEMATOCRIT 40.6 % (35.0-50.0); HEMOGLOBIN 13.5 g/dL (12.0-18.0); LYMPHOCYTES 19.4 % (24-44); MCH 30.3 (27-36); MCHC 33.3 g/dl (30-36); MCV 90.9 fl (81-99); MONOCYTES 9.7 % (0-12); NEUTROPHILS 70.3 % (39-80); PLATELET COUNT 274 K/uL (140-440); RBC 4.46 M/ul (4.3-5.7); RDW 14.2 (10.5-15.0)
[2023-08-28 05:42] LABS: ANION GAP 14.4 (7-21); BUN/CREATININE RATIO 12.67 (6.0-28.6); CALCIUM 9.1 mg/dL (8.5-10.1); CREATININE, SERUM 0.71 mg/dL (0.55-1.02); MAGNESIUM 1.9 mg/dL (1.8-2.4); POTASSIUM 3.4 mmol/L (3.5-5.1)
--- NOTE | 2023-08-28 05:51 | NUR ---
NEW PURWICK PLACED, DEPENDS DRY, PATIENT REPOSITIONED. SHE IS ALERT AND CALL THIS RN BY NAME. SHE HAS NOT SLEPT WELL OVER SHIFT ABOUT 2.5 HOURS TOTAL. SHE IS VOIDING Q.S. WITH PURWICK, TURNING/REPOSITIONING Q2 HOURS AND FOR COMFORT, SHE CONTINUES TO BE FORGETFUL, REORIENTS EASILY. SHE HAS COMPLAINT OF STUFF IN HER THROAT SHE IS UNABLE TO CLEAR, DEEP SUCTION BY R.T. DID NOT PRODUCE ANYTHING, SUCTIONING WITH YONKER OF ORAL CAVITY DID PRODUCE SEVERAL LARGE FOOD PARTICALS. SHE REMAINS STABLE RESPIRATORY STATUS ON ROOM AIR, NO INCREASE OF BREATHING.
[2023-08-28] MEDS ORDERED: POTASSIUM CHLORIDE 40 MEQ,LIDOCAINE HCL 1% 40 MG in DEXTROSE 5% 500 ML IV ONE (08:15)
--- NOTE | 2023-08-28 08:26 | NUR ---
IN PATIENT'S ROOM FOR AM ASSESSMENT AND VITALS. PT IS AWAKE, TALKING, AND RESPONSIVE BUT DISORIENTED. PT UNABLE TO STATE ANYTHING CORRECT AT THIS TIME OTHER THAN HER NAME. WHEN ASKING WHERE WE ARE, SHE STATES, "[facility]." PATIENT IS ASKING FOR ALMAZ HER OCCASIONALLY. ORAL CARE PROVIDED. PT HAS VERY WEAK TO IF ANY GAG RELFEX THIS MORNING. REPOSITIONED TO RIGHT SIDE. PT TO HAVE MRI AT 1000. ALMAZ, HER CALLED TO VERIFY ACCURACY OF MRI SCREENING FORM. PT UNABLE TO SIGN AND ASKS THIS RN TO SIGN FOR HER. 2 RN VERIFICATION AT BEDSIDE OF PT'S REQUEST FOR RN SIGNATURE ON MRI SCREEN FORM.
--- NOTE | 2023-08-28 10:02 | NUR ---
PATIENT UNABLE TO CARRY LONG CONVERSATIONS. NURSES STATE SON WILL BE IN TODAY. WILL SPEAK WITH SON WHEN HE ARRIVES TO DISCUSS PLAN OF CARE, DC PLAN.
--- NOTE | 2023-08-28 10:06 | NUR ---
PATIENT TAKEN DOWN TO MRI AT 0900, AND THIS RN ACCOMPANIED HER. MRI COMPLETE AND PATIENT BACK TO ROOM, BACK ON LARRY CAR OPERATOR AND IV MEDICATIONS RESUME. DR. BAJWA IN TO SEE PATIENT THEN. NOW PT/OT WORKING WITH PATIENT. PATIENT ASKING FOR HER ALMAZ OCCASIONALLY AND REMINDED HER THAT HE STATED HE WILL BE IN LATER TO SEE HER. PT REMAINS ON ROOM AIR, WITH CURRENT SP02 OF 97%.
--- NOTE | 2023-08-28 10:25 | NUR ---
UR CLINICAL REVIEW: 2 MN FOR [facility] MEDICARE ADVANTAGE INPT 08/26/23 @ 1946 ORDER MATCHES REG NO AUTH REQUIRED PER MEDICARE DISCHARGE DISPO PENDING FURTHER EVAL.
--- NOTE | 2023-08-28 11:48 | NUR ---
DR. BAJWA IN CCU TO SEE PATIENT AND PT'S ALMAZ CALLED TO GIVE AN UPDATE TO BY DR. BAJWA. PT PULLED IV OUT OF RIGHT FOREARM. NEW IV PLACED IN LEFT FOREARM. FIELD START IN RIGHT AC LEAKING, AND ALSO D/C BY THIS RN. PT GIVEN MORE WARM BLANKETS, BED IN LOW POSITION AND BED ALARM ON FOR SAFETY.
--- NOTE | 2023-08-28 12:17 | NUR ---
PATIENT'S SON SHEYLA CALLED THIS RN AND WAS GIVEN AN UPDATE. SHEYLA HAD BEEN CONTACTED BY ALMAZ REGARDING WHAT DR. BAJWA HAD CALLED ABOUT. SHEYLA'S NUMBER IS [phone]. WILL UPDATE HIM AGAIN PENDING INFORMATION RECEIVED FROM DR. BAJWA AFTER NEURO CONSULTATION.
--- NOTE | 2023-08-28 13:32 | NUR ---
VISITED DURING SPIRITUAL CARE ROUNDS. PT EXPRESSED AWARENESS OF MY PRESENCE, REQUESTED PRAYER. I PROVIDED SUPPORTIVE PRESENCE, PRAYER. PT EXPRESSED GRATITUDE.
[2023-08-28] MEDS ORDERED: DEXTROSE 5% - LACTATED RINGERS 1,000 ML IV SCH (14:30)
--- NOTE | 2023-08-28 15:00 | NUR ---
pt ramesh in the room. provided with update and answered all questions. pt sats in 80's, pt placed on 2L NC. pt repositioned in bed, and suctioned. no further needs at this time.
--- NOTE | 2023-08-28 16:10 | NUR ---
PATIENT TAKEN BACK DOWN FOR CT SCAN OF HEAD. BACK FROM SCAN AND BACK IN ROOM. PT'S IN ROOM WITH ANOTHER VISITOR. PLAN OF CARE BEING DISCUSSED.
[2023-08-28] MEDS ORDERED: SODIUM CHLORIDE 0.9% 1,000 ML IV SCH (17:00)
[2023-08-28 17:47] LABS: ANION GAP 16.5 (7-21); BUN/CREATININE RATIO 10.81 (6.0-28.6); CALCIUM 9.7 mg/dL (8.5-10.1); CREATININE, SERUM 0.74 mg/dL (0.55-1.02); POTASSIUM 3.5 mmol/L (3.5-5.1)
--- NOTE | 2023-08-28 18:21 | NUR ---
PATIENT'S SON SHEYLA CALLED AND GIVEN AN UPDATE. QUESTIONS ANSWERED BEST POSSIBLE. SHEYLA REQUESTING AN UPDATE TOMORROW MORNING FROM DR. BAJWA IF POSSIBLE - [phone]. PT'S GLASSES FOUND IN HER PURSE AND PLACED ON HER. PT REPOSITIONED TO LEFT SIDE AND NEW PUREWICK PLACED.
--- NOTE | 2023-08-28 21:19 | NUR ---
report taken, assessment complete, pt taken to CT without incident, back in room. Pt O2 demands have increased, is now on 7L Oxymask to maintain sats >90 Pt mumbling incoherant words, when asked 'Are you having trouble finding workds. Pt clearly states "Yes, yes I am". NIH=20 Pt states she does not need suction, purewick placement is checked and reset to suction, working well.
[2023-08-28] MEDS ORDERED: KETOROLAC TROMETHAMINE 15 MG/ML VIAL IV PRN (22:00)
--- NOTE | 2023-08-28 23:06 | NUR ---
Chest x-ray in room, pt tolerated well.
[2023-08-29] VITALS (22 sets, daily range): BP systolic 148–224; BP diastolic 77–133
--- NOTE | 2023-08-29 00:34 | NUR ---
Pt changed from 7L oxy mask to 5L NC, tolerating well, sats >94%
--- NOTE | 2023-08-29 00:55 | NUR ---
Pt was complaining about dry nose, this RN added humidity to NC and informed RT. Pt now on 4L NC.
--- NOTE | 2023-08-29 01:23 | NUR ---
RT up to see pt, discussed care with this RN. Difficult to assess how many L as pt appears to hold breath at times causing desat, tends to recover quickly with that, other times takes a long time to recover and unsure why. After RT left, pt desatted into 70s. Oxymask was placed back on pt at 10 L. Her O2 sats recovered quickly. I dropper her to 7 but she started to desat again, leaving her on 10L oxymask. TELEPHONE CLERK TELEGRAPH OFFICE in room as 1:1 to help pt from pulling off mask.
--- NOTE | 2023-08-29 03:54 | NUR ---
Pt was desatting without recovery, placed on 15L and only came up to 80s. This RN called RT who assessed pt, reports crackles in bilateral bases. Provider notified. Pt is now on CPAP at 12 with FiO2 at 100%, pt now maintaining SpO2 > 95. Pt is currently a 1:1 with LOY Castelan at bedside. This RN did discuss importance of monitoring for emesis and interventions as pt is unable to remove mask. Provider spoke with pt to update.
--- NOTE | 2023-08-29 04:13 | NUR ---
Per provider, plan of care is now to transfer pt. Family has been notified and staff is working on finding the closest appropriate facility for pt transfer.
--- NOTE | 2023-08-29 04:13 | NUR ---
[facility] NOTIFIED FOR TRANSFER OF PT PER DR BAJWA AND TELE-NEURO . NO BEDS AVAILABLE.
--- NOTE | 2023-08-29 04:28 | NUR ---
[facility] TRAN[facility] CONTACTED FOR PT TRANSFER PER DR BAJWA AND MAAME SERRANO. [facility] REQUESTED AND RECEIVED IMAGING. NEURO TO REVIEW.
--- NOTE | 2023-08-29 04:48 | NUR ---
Dr. Yan spoke with both providers at [facility], who recommended against transfer and to continue medical management. Pt was just decreased to 40% FiO2 on CPAP and continues to maintain sats >95 without desat events.
[2023-08-29 05:24] LABS: BASOPHILS 0.4 % (0-2); EOSINOPHILS 0.2 % (0-6); HEMATOCRIT 42.8 % (35.0-50.0); HEMOGLOBIN 14.3 g/dL (12.0-18.0); LYMPHOCYTES 12.7 % (24-44); MCH 30.3 (27-36); MCHC 33.5 g/dl (30-36); MCV 90.4 fl (81-99); NEUTROPHILS 75.7 % (39-80); PLATELET COUNT 287 K/uL (140-440); RBC 4.73 M/ul (4.3-5.7); RDW 13.9 (10.5-15.0)
--- NOTE | 2023-08-29 05:28 | NUR ---
PT DAUGHTER JESSICA CALLED FOR PT STATUS UPDATE.
[2023-08-29 05:37] LABS: ANION GAP 16.7 (7-21); BUN/CREATININE RATIO 16.21 (6.0-28.6); CREATININE, SERUM 0.74 mg/dL (0.55-1.02); MAGNESIUM 1.6 mg/dL (1.8-2.4); PHOSPHORUS, INORGANIC 2.6 mg/dL (2.5-4.9); POTASSIUM 2.7 mmol/L (3.5-5.1)
--- NOTE | 2023-08-29 06:44 | NUR ---
Pt NIH remains 20, Pupils are not equal (L > R) are both briskly reactive with Rightward gaze. L side extremities remain fairly rigid but pt unable to move to command. Spontaneous movements noted in all four extremities. Pt able to follow commands with R arm intermittently. Speach is intermittently clear, pt is difficult to ellicit gag, does not cough. NPO, no nutrition at this time. Pt tolerates CPAP well, sats remained >95 with no desat events. Pt now on 40% FiO2. 1:1 SECURITY INFRASTRUCTURE ENGINEER at bedside. Vitally stable, no meds for permissive hypertention. Purewick in place for incontinence, brief is dry and urine is noted in the canister. Pt remains a 1:1 with sitter at bedside.
--- NOTE | 2023-08-29 07:30 | NUR ---
Report received from Poonam DEL ANGEL. Patient in bed [facility] CPAP in place, 1:1 sitter in room. CPAP at 40% 02, Patient spo2 98%. BP remains hypertensive at 170/103. Patient responsive to voice, spontaneous movements with R arm, reflexive movements only noted to L side. Will continue plan of care.
--- NOTE | 2023-08-29 08:15 | NUR ---
This RN in room for assessment. Patient has spontaneous eye opening and can respond with words although not always in context of situation. Right gaze with both eyes, pupils remain L 4mm and R 3mm. Reactive to light. Unable to follow with gaze. L side of patient is reflexive to stimuli but no gross movement initiated by patient. R side spontaneous movement of R arm and limited movement of R leg. RT Shila in room for neb tx. Noted fine crackles to RLL. CPAP titrated to 32% fio2, pt spo2 stable. HRR in SR. Normal S1 and S2. Bowel tones active, no BM since 08/25. Skin intact. IVF infusing WNL.
--- NOTE | 2023-08-29 08:30 | NUR ---
This RN remains in room for echo. Patient tolerates well.
--- NOTE | 2023-08-29 08:30 | NUR ---
VERBAL UPDATE TO DR BAJWA ON LABS AND ECHO/CT TIMES. SEE NEW ORDERS.
[2023-08-29] MEDS ORDERED: POTASSIUM CHLORIDE 40 MEQ,LIDOCAINE HCL 1% 40 MG in DEXTROSE 5% 500 ML IV ONE (08:45)
[2023-08-29] MEDS ORDERED: MAGNESIUM SULFATE 2 GM/50 ML BAG IV ONE (09:00)
--- NOTE | 2023-08-29 09:00 | NUR ---
oral care provided. patient repositioned to right side.
--- NOTE | 2023-08-29 09:05 | NUR ---
Scheduled medications administered. Mag rider infusing. IVF infusing. Patient neuro status remains unchanged. Requiring frequent cueing to not remove CPAP mask.
--- NOTE | 2023-08-29 09:25 | NUR ---
Dr Yan notified of systolic pressure >200. Orders to administer PRN hydralazine as ordered. Administered. Pt also given PRN toradol for back pain.
--- NOTE | 2023-08-29 10:00 | NUR ---
IV ABX infusing. Patient remains unchanged with neuro status. Patient taken to CT with CPAP in place. Pt tolerates fair. Back to room with this RN remaining at bedside as well as AUTO CLUB TRAVEL COUNSELOR.
--- NOTE | 2023-08-29 11:04 | NUR ---
PATIENT RESTING IN BED, CPAP IN PLACE. PUREWICK REPLACED AND URINE OUTPUT CHARTED. INFLATABLE MATTRESS UNDER PATIENT. THIS DRILL RUNNER HELPER 1:1.
--- NOTE | 2023-08-29 11:30 | NUR ---
Patient repositioned in bed. BP stable below call parameters and HR stable in 80-90 range. No neuro changes at this time. Assessment remains unchanged from prior. Purewick in place. CPAP in place settings per RT.
--- NOTE | 2023-08-29 12:04 | NUR ---
VISITED DURING SPIRITUAL CARE ROUNDS. PROVIDED PRAYER, SUPPORTIVE PRESENCE. PT RESPONDED VERBALLY, EXPRESSED GRATITUDE.
--- NOTE | 2023-08-29 12:40 | NUR ---
Family members arrive and case management in room to discuss POC. Patient receptive to voices and frequently reaches out toward her with R hand. CPAP in place settings unchanged.
--- NOTE | 2023-08-29 13:04 | NUR ---
Dr Yan in room with this RN to discuss code status with patients Deon who is medical POA. Decision made to transition to DNR/DNI. POLST form signed with and caseworker.
--- NOTE | 2023-08-29 13:09 | NUR ---
HUMBERTO, SPOUSE IN ROOM WITH PATIENT. DISCUSS DISCHARGE PLAN. INFORMED HUMBERTO, PATIENT WILL LIKELY NOT BE A CANDIDATE FOR SNF DUE TO INABILITY TO RETAIN INFORMATION AT THIS TIME, INABILITY TO WORK WITH PT AND OT. ALSO DISCUSS POSSIBILITY OF NEED FOR G TUBE IF PATIENT REMAINS UNSAFE TO SWALLOW. SPOUSE IS CURRENTLY OK WITH PEG TUBE IF IT IS NEEDED FOR NUTRITION. DR. BAJWA IN TO SPEAK WITH HUMBERTO WELL. FELICITA COMPLETED AND FAXED TO [facility]. SPOUSE IS PROVIDED WITH A LIST OF ASSISTED LIVING, FURNITURE LUMBER PRODUCTION WORKER CARE AND SNF FACILITIES ALONG WITH A PATIENT CHOICE LETTER. STATES THEY HAVE NO [employer] MEDICAID AND THEY MAKE WELL OVER THE LIMIT FOR ASSISTANCE EVERY MONTH. QUESTIONS ANSWERED REGARDING DIFFERENT FACILITIES. HUMBERTO VERBALIZES UNDERSTANDING AND WILL SPEAK WITH STAFF TOMORROW TO CONTINUE TO DISCUSS OPTIONS.
--- NOTE | 2023-08-29 13:54 | NUR ---
SITTING WITH PATIENT AT THIS TIME. PT TRIALED ON RA AND DESATS TO 85% AFTER ABOUT 10 MINUTES. PT PUT BACK ON CPAP AND SATS RETURNED TO 96%. PT RESTING AT THIS TIME WITH EYES CLOSED. SPONTANEOUSLY OPENS EYES PERIODICALLY BUT THEN FALLS BACK ASLEEP. ALL NEEDS MET AT THIS TIME, CONTINUE TO SIT WITH PT FOR SAFETY.
[2023-08-29] MEDS ORDERED: TRIMETHOPRIM OD SCH (15:00)
[2023-08-29] MEDS ORDERED: POLYMYXIN OD SCH (15:00)
[2023-08-29] MEDS ORDERED: SULFACETAMIDE SODIUM 10% OD SCH (15:00)
--- NOTE | 2023-08-29 15:06 | NUR ---
PATIENT INCONTINENT OF SMALL AMOUNT OF SOFT STOOL. BRIEF AND DRAW SHEET CHANGED. PATIENT REPOSITIONED SUPINE. CPAP IN PLACE. THIS CHIEF PROGRAM OFFICER 1:1 OBS.
--- NOTE | 2023-08-29 16:39 | NUR ---
repositioned to left, pillows supporting. 99.1 temp charted, RN notified. this inspector and clerk 1:1 for safety
--- NOTE | 2023-08-29 17:45 | NUR ---
Attempted to use High flow vapotherm. Patient unable to tolerate and drops to 79% spo2. Returned to CPAP with settings per RT: CPAP at 12 and fio2 24%, spo2 96%. BP stable at this time, patient alert and oriented to self and answers questions appropriately. Hygiene/oral care complete. Repositioned in bed with pillows. Skin remains intact. Barrier ointment applied to bridge of nose. Patient continues to reach up to CPAP tube and pull at it, remains to be a 1:1 with staff member at bedside.
[2023-08-29 19:40] LABS: ANION GAP 15.9 (7-21); BUN/CREATININE RATIO 20.83 (6.0-28.6); CREATININE, SERUM 0.72 mg/dL (0.55-1.02); POTASSIUM 2.9 mmol/L (3.5-5.1)
--- NOTE | 2023-08-29 19:50 | NUR ---
PATIENT RESTING IN BED ON CPAP, MASK RE-ADJUSTED FOR COMFORT, REPOSITIONED IN BED, CHECK PURWICK POSITION, IN POSITION DEPENDS DRY. 1:1 IN ROOM AT BEDSIDE CHYNA GRANADO. ASSESSMENT COMPLETE.
[2023-08-29] MEDS ORDERED: POTASSIUM CHLORIDE 10 MEQ/100 ML BAG IV SCH (20:15)
--- NOTE | 2023-08-29 22:00 | NUR ---
PATIENT ADMINISTERED COMPAZINE PRN FOR NAUSEA, AND TORDOL FOR 4/10 NO VERBAL FACE SCALE. PATIENT NOW RESTING IN BED EYES CLOSED, RELAXED POSITION.
[2023-08-30] VITALS (19 sets, daily range): BP systolic 150–186; BP diastolic 84–109
--- NOTE | 2023-08-30 00:02 | NUR ---
PT RESTING IN BED WITH SITTER AT BED SIDE AND CPAP IN PLACE. PT CONTINUES TO ATTEMPT TO PULL AT CPAP MASK. PT REDIRECTED AND REPOSITIONED FOR COMFORT. PILLOW SUPPORT PROVIDED. VSS AND NAD NOTED VIA DIRECT OBS AND CONTINUOUS MONITOR.
--- NOTE | 2023-08-30 02:00 | NUR ---
PT CONTINUES TO PULL AT CPAP MASK. SITTER AT BEDSIDE. PT REDIRECTED. BED IN LOW, LOCKED POSITION. VSS AND NAD NOTED VIA DIRECT OBS AND CONTINUOUS MONITOR.
--- NOTE | 2023-08-30 02:11 | NUR ---
PATIENT RESTING IN BED, EYES CLOSED, NO DISTRESS AT THIS TIME, 1:1 WITH JACQUELINE GRANADO AT BEDSIDE TO MONITOR CPAP.
--- NOTE | 2023-08-30 04:00 | NUR ---
PT RESTING IN BED. ORAL CARE PERFORMED. PT REPOSITIONED. PT REASSURED AND REDIRECTED WHILE ATTEMPTING TO PULL AT CPAP MASK. LOTION APPLIED TO PT ARMS AND LEGS. VSS AND NAD NOTED VIA DIRECT OBS AND CONTINUOUS MONITOR.
[2023-08-30 05:37] LABS: BASOPHILS 0.5 % (0-2); EOSINOPHILS 0.3 % (0-6); HEMATOCRIT 42.2 % (35.0-50.0); LYMPHOCYTES 12.3 % (24-44); MCH 30.4 (27-36); MCHC 33.2 g/dl (30-36); MCV 91.6 fl (81-99); MONOCYTES 9.7 % (0-12); NEUTROPHILS 77.2 % (39-80); PLATELET COUNT 297 K/uL (140-440); RBC 4.61 M/ul (4.3-5.7); RDW 13.8 (10.5-15.0)
--- NOTE | 2023-08-30 05:46 | NUR ---
PRN HYDRALAZINE AND KETORLAC ADMINISTERED TO PT FOR BP 188/118. PT VERBALIZES PAIN. SITTER AT BEDSIDE. PT COMPULSIVE WITH ATTEMPTS TO PULL AT CPAP MASK. VSS AND NAD NOTED VIA DIRECT OBS AND CONTINUOUS MONITOR.
[2023-08-30 05:53] LABS: ANION GAP 14.3 (7-21); BUN/CREATININE RATIO 31.74 (6.0-28.6); CALCIUM 9.5 mg/dL (8.5-10.1); CREATININE, SERUM 0.63 mg/dL (0.55-1.02); MAGNESIUM 1.9 mg/dL (1.8-2.4); POTASSIUM 3.3 mmol/L (3.5-5.1)
--- NOTE | 2023-08-30 07:30 | NUR ---
REPORT RECIEVED FROM NIGHTSHIFT NURSE. REPORTED THAT PT WAS CPAP DEPENDENT AND WAS NAUSEATED. WENT IN ROOM TO INTRODUCE MYSELFTOPATIENT. PATIENT WAS LAYING IN BED. ORAL CARE AND VI CARE PROVIDED. PATIENT HAD SOLID BOWEL MOVEMENT THIS MORNING. GOWN WAS ALSO CHANGED. WHEN LEAVING ROOM PATIENT WAS TURNED ON RIGHT SIDE.
[2023-08-30] MEDS ORDERED: POTASSIUM CHLORIDE 40 MEQ,LIDOCAINE HCL 1% 40 MG in DEXTROSE 5% 500 ML IV ONE (07:45)
--- NOTE | 2023-08-30 07:45 | NUR ---
THIS RN AND COLE RN WILL BE TAKING CARE OF PATIENT. KRISTA STUDENT RN PROVIDING CARES UNDER SUPERVISION.
--- NOTE | 2023-08-30 08:15 | NUR ---
IN ROOM FOR MORNING ASSESSMNET. NOTICIED NEW PURPLE BRUSING ON PATIENTS RIGHT FOREARM/WRIST. SMALL BLUE/PURPLE BRUISENOTICED ON PATIENTS LEFT INNER THIGH. RT CAME AND GAVE PTBREATHING TREATMENT AND SWITCHED PATIENT TO VAPOTHERM. PATIENT STILL LAYING ON RIGHTSIDE WHEN I LEFT THE ROOM.
--- NOTE | 2023-08-30 08:31 | NUR ---
PATIENT RESTING IN BED, VITALS AND I&OS CHARTED. BEDBATH AND LINEN CHANGED. PUREWICK REPLACED. SMALL STOOL INCONTINENCE. PATIENT REPOSITIONED TO RIGHT SIDE, LEFT ARM ON PILLOW. ORAL CARE AND ROM PROVIDED. RT AND RN AT BEDSIDE. PATIENT IN DIRECT OBS OF STAFF
--- NOTE | 2023-08-30 09:45 | NUR ---
IN ROOM TO OBSERVE PT AND OT. PATIENT WAS UNABLE TO TRACK WITH GAZE. PATIENT REPORTED FEELING NAUSEATED. NURSE NOTIFIED AND GAVE PRN NAUSEA MEDICATIONS. MD STOPPED BY AND WOULD LIKETO BE NOTIFIED WHEN FAMILY ARRIVES TO DISCUSS PLAN OF CARE.
--- NOTE | 2023-08-30 10:35 | NUR ---
BRIEF VISIT DURING SPIRITUAL CARE ROUNDS SO TO NOT DLEAY WORK WITH PHYSICAL THERAPY. PT RESPONDED APPROPRIATELY TO MY PRESENCE AND CONVERSATION. PROVIDED SUPPORTIVE PRESENCE, PRAYER.
--- NOTE | 2023-08-30 10:46 | NUR ---
SPEECH WAS IN TO EVALUATAE PT THIS AM , PT REQUIRED 50% FIO2 DURING THIS TESTING , PT CAME IN AND WORKED WITH PATIENT WAS PLACED ON 100% FIO2 / 35LPM DURING ACTIVITY , PT TOLERATED VERY WELL , SHE WAS DECREASED TO 70% FIO2 AND THEN TO 50%. PT DESATS INTERMITTENLY HOWEVER RETURNS TO SPO2 ABOVE 90% WITHIN SECONDS , SHE TO SENSITIVE TO NECK POSITION AND REQUIREDS CPAP TO SLEEP WITH WELL.
--- NOTE | 2023-08-30 11:12 | NUR ---
WENT IN ROOM TO ADMINISTER MEDICATIONS.REPOSITIONED PATIENT AND PULLED THEM UP IN BED. STARTED ANTIBIOTIC INFUSION, CHANGED NS BAG, AND GAVE LOVENOX INJECTION. PATIENT IS MOVING RIGHT ARM A BIT AND GROANING. MOVED BED TO THE LEFT BECAUSE PATIENT KEPT REACHING FOR CPAP MACHINE.
--- NOTE | 2023-08-30 13:00 | NUR ---
PATIENT RESTING ON CPAP NOW AT THIS TIME. THIS RN TAKING OVER CARE AND ASSISTING PATIENT.
--- NOTE | 2023-08-30 13:04 | NUR ---
THE PATIENT'S SON IS COMING TO TOWN TODAY TO HELP WITH THE DISCHARGE PLAN. THE EVENT PRODUCER WILL ATTEND THIS MEETING ABOUT FUTURE PLACEMENT NEEDS.
--- NOTE | 2023-08-30 13:56 | NUR ---
SPOKE TO JULIANE MUSE [phone],BENJIE ASIF AND A STUDENT NURSE ABOUT THE PATIENT'S PLACEMENT. DICUSSED THE NEED THAT THE PATIENT MAY NEED A FEEDING TUBE AND WILL NEED PLACEMENT. THE PATIENT'S FAMILY REQUESTS 24 HOURS TO MAKE A DECISION.
[2023-08-30] MEDS ORDERED: SALINE LOCK FLUSH 5 ML SYR IV PRN (14:30)
--- NOTE | 2023-08-30 14:37 | NUR ---
SPOKE TO SON ABOUT THE DISCHARGE PLAN. THE PATIENT AT THIS TIME IS NOT A SNF CANDIDATE BECAUSE THE PATIENT IS UNABLE TO DO REHAB. THE PATIENT WAS GIVEN A LIST OF DONNA AND RESIDENTIAL CARE. THE SON WILL TALK WITH HIS FATHER ABOUT PLACEMENT AND THE NEED FOR A FEEDING TUBE.
--- NOTE | 2023-08-30 15:06 | NUR ---
WENT IN ROOM TO ADMINSTER MEDICATIONS WITH ENDY Santo PATIENT WAS LAYING IN BED WITH CPAP MACHINE ON. STARTED ANTIBIOTIC INFUSION AND GAVE PRESCIBED EYE DROPS. SALIINE LOCKED IV IN LEFT FOREARM. PATIENT WAS STILL LAYING DOWN AND REACHING FOR THINGS WITH RIGHT ARM WHEN I LEFT THE ROOM. LOY AGUILERA STILL IN ROOM.
--- NOTE | 2023-08-30 16:26 | NUR ---
RT in to see pt, pt grabing at cpap mask - trial of nc to wall and pt desats to 80%. family in room - and RT replaced cpap mask to increase sats to wnl. pt failed nasal cannula.
--- NOTE | 2023-08-30 17:00 | NUR ---
Notified by family specialist are at the desk and would like to speak with CM.
--- NOTE | 2023-08-30 17:18 | NUR ---
pt turned to left side - sn villar gave 15 mg of toradol for gen pain, pt grimaced and answered yes to question of do you have pain. call light in reach nc vapotherm on at 40/100 family in room.
--- NOTE | 2023-08-30 17:30 | NUR ---
Met with pts spouse and son. Went with family to CCU waiting room. Son has multiple questions about placement and payment from [employer]. Discussed options with family: 1. Home with CG (both deny this is possible) 2. SNF not an option as pt is not skillable 3. Money from [employer] Medicaid not an option as they are way over income and own a house. Will need to spend down to $2000 before this would be available. Discouraged from going to [facility] to discuss as they don't meet criteria at this time. 4. Placement to CARE HOME/Residential Care. Pt must be a 1 person assist. Pt is unable to protect her airway and would be a heavy 2 person A. Spouse also wants placement. Reviewed Medicare does not cover and this would all need to be out of pocket. More than likely pt would only be accepted as a Hospice pt. 5. Memory Care would possible accept as pt has documentation showing dementia. 6. Discussed [facility] as they are able to take heavier pts and will use a reggie lift. Per spouse he is friends with the hemstitching machine operator. Let him know they did not have a bed open yesterday. We then had a lengthy discussion about end of life and what pts wishes are. Discussed medically pt can be kept alive, but is this quality of life. We also discussed a feeding tube. Both are now stating they do not think Sana would want this. They were just hoping for anything to improve her life. Lengthy discussion followed about comfort care. I called and asked Dr. Yan if he could attend this discussion and he came to CCU immediately. Dr. Yan, myself, Rn, student joined family. reviewed Comfort Care and meds that would be used. Discussed plan and when family would want to proceed. Family have questions and want pt to be comfortable and no anxiety. Breanne DEL ANGEL was able to discuss this further. Family now requesting to stop treatment and switch to comfort care. They deny needs or further questions.
[2023-08-30] MEDS ORDERED: LORazepam 2 MG/ML VIAL IV PRN ×3 (18:15)
[2023-08-30] MEDS ORDERED: MORPHINE SULFATE 10 MG/ML VIAL IV PRN (18:15)
[2023-08-30] MEDS ORDERED: ARTIFICIAL TEARS 15 ML BTL OU PRN (18:15)
[2023-08-30] MEDS ORDERED: ondansetron HCL 4 MG/2 ML VIAL IV PRN (18:15)
[2023-08-30] MEDS ORDERED: fentaNYL citrate 100 MCG/2 ML VIAL IV PRN (18:15)
[2023-08-30] MEDS ORDERED: MORPHINE SULFATE 4 MG/ML VIAL IV PRN ×2 (18:15)
[2023-08-30] MEDS ORDERED: ATROPINE SULFATE 1% OPTH DROPS SL PRN (18:15)
[2023-08-30] MEDS ORDERED: LORazepam 0.5 MG TAB PO PRN (18:15)
--- NOTE | 2023-08-30 18:42 | NUR ---
MD CLIFTON CAME IN AFTER FAMILY DISCUSSED PLANS TODAY FROM THIS [facility]. AFTER MUCH DISCUSSION FAMILY HAS DECIDED TO TRANSITION PATIENT TO COMFORT MEASURES ONLY. PER DISCUSSION PATIENT HAS TALKED ABOUT HER WISHES IN THE PAST AND FAMILY FEELS THIS WILL FOLLOW HER WISHES. PATIENT COMPLAINS OF PAIN. PRN TORADOL GIVEN WITH NO IMPROVEMENT. SEE NEW ORDERS FOR COMFORT MEASURES. MEDICATIONS ADMINISTERED WILL MONITOR FOR CHANGES. PATIENTS FAMILY LEFT AT THIS TIME. NO OTHER NEEDS AT THIS TIME.
--- NOTE | 2023-08-30 19:35 | NUR ---
REPORT RECEIVED AND CARE ASSUMED FROM DAYSHIFT RNS. PT COMFORT CARE. FAMILY AT BEDSIDE.
[2023-08-30] MEDS ORDERED: ONDANSETRON 4 MG TAB ODT SL SCH (20:00)
--- NOTE | 2023-08-30 20:21 | NUR ---
SHIFT ASESSMENT COMPLETE. PT ON COMFORT CARE. PT NON VERBAL, OPENS EYES BRIEFLY. PT PRN MEDICATION PER EMAR. BED IN LOW, LOCKED POSITION WITH BED ALARM ON. CONTINUOUS MONITOR IN PLACE. NAD NOTED VIA DIRECT OBS AND CONTINUOUS MONITOR.
--- NOTE | 2023-08-30 21:20 | NUR ---
PT MEDICATED FOR COMFORT CARE PT HR 113, APPEARS IN DISCOMFORT. POST PRN MORPHINE ADMINISTRATION PT FACIAL FEATURES RELAXED. HR 105.
--- NOTE | 2023-08-30 21:28 | NUR ---
PT MEDICATED PER EMAR DURING COMFORT MEASURES. PT GIVEN 0.5 MG ATIVAN, PT HR DECREASED TO 98 FROM 105. PT APEARS LESS AGITATED. PT APPEARS TO BE COMFORTABLE WITHOUT FACIAL GRIMACING, NO MOANING AT PRESENT, PT EXTREMETIES RELAXED.
--- NOTE | 2023-08-30 21:53 | NUR ---
PT APPEARS COMFORTABLE. HR 99, O2 57% ON RA, RR 12.
--- NOTE | 2023-08-30 22:37 | NUR ---
PT RESTINGI NBED WITH EYES CLOSED. APPEARS COMFORTABLE. 02 55% ON RA, HR 100, RR 11.
--- NOTE | 2023-08-31 00:44 | NUR ---
PT RESTING IN BED, APPEARS COMFORTABLE. PT HR 98, O2 57% ON RA, RR 12. NAD NOTED VIA DIRECT OBSERVATION.
--- NOTE | 2023-08-31 01:31 | NUR ---
PT PULLING LEGS UP, MOANING. FACES PAIN SCALE IS 4/10. PRN MED PROVIDED FOR DISCOMFORT. IV WNL, FLUSHED WELL. RAILS UP, DOOR AND CURTAIN OPEN FOR OBSERVATION.
--- NOTE | 2023-08-31 02:47 | NUR ---
PT REPOSITIONED. PT APPEARS COMFORTABLE. HR 94, O2 85% ON RA, RR 12. NO FACIAL GRIMACING OR OTHER SIGNS OF DISCOMFORT VIA DIRECT OBSERVATION.
--- NOTE | 2023-08-31 04:02 | NUR ---
SIGNS OF DISCOMFORT NOTED. PT MOANING, FACIAL GRIMACES PRESENT. PT MEDICATED PER EMAR WITH PAIN MEDICATION. HR95, RR 11, O2 72% ON RA. PT REPOSITIONED.
--- NOTE | 2023-08-31 04:32 | NUR ---
PT APPEARS COMFORTABLE AT THIS TIME. HR 95, O2 71% ON RA, RR 15. NAD NOTED VIA DIRECT OBS.
--- NOTE | 2023-08-31 05:05 | NUR ---
PT MOANING AND GRIMACING. PT MEDICATED FOR PAIN PER EMAR. PT REPOSITIONED. HR94, O2 74% ON RA, RR 14. NAD NOTED VIA DIRECT OBSERVATION.
--- NOTE | 2023-08-31 06:06 | NUR ---
PT APPEARS COMFORTABLE. NO GRIMACING, NO GRUNTING/MOANING, NO RESTLESSNESS VISIBLE. PT HR 98, O2 70% ON RA, RR 14. PT BLANKET ADDED, BLINDS ADJUSTED FOR SUNLIGHT, PT REPOSITIONED.
--- NOTE | 2023-08-31 06:35 | NUR ---
PT MOANING AND GRIMACING. PAIN MEDICATION ADMINISTERED PER EMAR. POST PRN MEDICATION ADMINISTRATION PT HR 99, O2 70% RA, RR 15.
--- NOTE | 2023-08-31 06:47 | NUR ---
PT MOANING CONTINUES AFTER DOSE OF PRN MORPHINE GIVEN PER EMAR. PER ORDERS ADDITIONAL DOSE ADMINISTERED FOR PAIN VERIFIED THROUGH PT MOANING AND FACIAL GRIMACING. PT ORAL CARE COMPLETED, CHAP STICK APPLIED, REPOSITIONING COMPLETED. PT HR 97, RR 14, O2 65% ON RA FOLLOWING MEDICATION. PT MOANING DECREASED, GRIMACING LES FREQUENT.
--- NOTE | 2023-08-31 07:30 | NUR ---
THIS RN AND STUDENT RN KRISTA RECIEVED REPORT ON PATIENT AND WILL BE RESUMING CARE AT THIS ITIN. PATIENT RESTING WITH RR- 14 AND HR 95. NO MOANING OR GRIMMACE NOTED.
--- NOTE | 2023-08-31 07:37 | NUR ---
SHIFT REPORT GIVEN AND CARE ENDORSED TO MER HOLT. PT RESTING IN BED WITH EYES CLOSED. NAD NOTED VIA DIRECT OBS.
--- NOTE | 2023-08-31 07:51 | NUR ---
RECIEVED REPORT FROM LINUX SERVER ENGINEER NURSE.WENT IN RROM TO LAY EYES ON PATIENT. PATIENT WAS SLEEPING AND TURNED TOWARDS THE LEFTSIDE. RESPIRATION RATE CURRENTLY AT 15 AND O2 AT 63% ON ROOM AIR. FAMILY CURRENTLY IN ROOM.
--- NOTE | 2023-08-31 09:00 | NUR ---
WENT IN ROOM TO DO A PATIENT ASSESSMNET. PATIENT WAS STILL ASLEEP AND SNORING. APPLIED CHAPSTICK TO THE PATIENTS LIP FOR DRYNESS AND WIPPED PATIENTS FACE WITH A WARM WASH CLOTH.
--- NOTE | 2023-08-31 10:13 | NUR ---
REPOSITIONED PATIENT. NOTCIED PATIENT HAD A SMALL BOWELMOVMENT SO BRIEFS AND PUREWICK WERE CHANGED. REPOSITIONED PATIENT TO LEFT SIDE WITH PILLOWS AND HEAD OF BED ELVATED.
--- NOTE | 2023-08-31 10:56 | NUR ---
WENT IN ROOM TO ADMINISTER MEDICATIONS TO PATIENT. PATIENT GROANED WHEN GIVING THE SUBLINGUIAL ZOFRAN. REAPPLIED CHAPSTICK FOR PATIENT. PATIENT LAYING DOWN TURNED TOWRDS HER LEFT SIDE WITH HEAD OF BED ELEVATED.
--- NOTE | 2023-08-31 11:33 | NUR ---
WENT IN RROM TO ASSESS PATIENT. PROVIDE ORAL CARE PATIENT HAD SOME DRY SECRETIONS PRESENT. SUCTIONED MOUTH AFTER ORAL CARE. APPLIED A&d OINTMENT TO PATIENT'S HANDS, LIPS, AND ARMS FOR DRYNESS. PATIENT'S SKIN IS WARM. PATIENT IS NOW RESTING COMFORTABLY WITH EYES CLOSED AND HEAD OF BED ELVATED ON HER LEFT SIDE.
[2023-08-31] MEDS ORDERED: SCOPOLAMINE 1 MG/3 DAYS PATCH 1 EACH TDSY TD SCH (12:30)
--- NOTE | 2023-08-31 13:20 | NUR ---
WENT IN ROOM TO ADMINSITER MEDICATIONS. PATIENT RECIEVED 4 MG OF MORPHINE, 0.5 MG OF ATIVAN, AND A SCOPOLAMINE PATCH. REPOSITIONED PATIENT ON TO RIGHT SIDE. PATIENT IS RESTING COMFORTABLY WITH EVEN RESPIATIONS, EYES CLOSED, AND SNORING. RESPIRATION RATE IS 16 AND O2 SAT. IS 70% ON ROOM AIR.
--- NOTE | 2023-08-31 14:56 | NUR ---
FAMILY DECIDED TO NOT PURSUE PEG TUBE FOR FEEDING. COMFORT MEASURES IN PLACE.
--- NOTE | 2023-08-31 15:10 | NUR ---
PATIENTS ARRIVED. UPDATED ON PATIENTS CONDITION. PATIENT IS MOANING AT THIS TIME AND PRN MEDICATION GIVEN FOR PATIENTS COMFORT. PATIENTS WILL STAY AND VISIT WITH PATIENT. CURTAIN DRAWN FOR PRIVACY.
--- NOTE | 2023-08-31 15:44 | NUR ---
PATIENTS BELONGINGS SENT HOME WITH HER . PATIENTS PURSE, CELL PHONE, AND GLASSES IN 1 GREEN BAG AND CLOTHES IN THE OTHER. PATIENTS TOOK BOTH BAGS OF BELONGINGS HOME. PATIENT APPEARS TO BE RESTING MORE COMFORTABLY AT THIS TIME. NO MOANING NOTED.
--- NOTE | 2023-08-31 17:02 | NUR ---
ADMINISTERED MEDICATIONS TO PATIENT. PATIENT WAS LAYING ON RIGHT SIDE WHEN WE ENTERED. GAVE PATIENT TWO DROPS OF STROPINE, SUBLINGUIAL ZOFRAN, AND EYE DROPS FOR COMFORT. REPOSITIONED PATIENT FLAT ON HER BACK WITH PILLOWS UNDER BOTH HIPS AND PILLOW UNDER BOTH KNEES. PATIENT IS RESTING COMFORTABLY WITH EYES CLOSED, RESPIRATIONS EVEN AND UNLABORED. RESPIRATION RATE IS 13 AND O2 SATURATION IN 52 ON ROOM AIR.
--- NOTE | 2023-08-31 19:19 | NUR ---
AMINSTERED 4 MG IF MORPHINE AND 1 MG OF ATIVAN TO PATIENT. ALSO GAVE EYE DROPS FOR COMFORT CARE. PATIENT IS STILL LAYING BACK WITH PILLOWS UNDER HER HIPS. SNORING LIGHTLY AND RESTING WITH HER EYES CLOSED. RESPIRATION ARE EVEN AT A RATE OF 15. O2 SAT. AT 42 ON ROOM AIR. ALSO APPLIED MORE A&D OINTMENT TO HER LIPS FOR COMFORT.
--- NOTE | 2023-08-31 19:44 | NUR ---
PATIENT RESTING WITH NO SIGNS OF DISTRESS. TAKING OFF RT SERVICE. PLEASE CALL WITH CONCERNS OR O2 USE.
--- NOTE | 2023-08-31 20:15 | NUR ---
SBAR REPORT RECEIVED FROM MER HOLT. ALL EVENTS OF THE DAY WERE DISCUSSED AND PLAN OF CARE REVIEWED. PATIENT ASHLIE WAS REPOSITIONED ON RIGHT SIDE. TACHYCARDIA HR 120 SLIGHT GASPING NOTED. PRN MROPHINE AND ATIVAN WILL BE GIVEN THROUGHOUT THE SHIFT WHEN APPROPRIATE.
--- NOTE | 2023-08-31 20:37 | NUR ---
4MG MORPHINE AND 0.5MG LORAZEPAM GIVEN FOR TACHYCARDIA AND SLIGHT GASPING. PATIENT ASHLIE APPEARS COMFORTABLE AFTER MEDICAL INTERVENTIONS
[2023-08-31] MEDS ORDERED: PATIENT'S OWN MEDICATION(S) ORDER MISC PRN ×3 (20:45)
--- NOTE | 2023-09-01 00:48 | NUR ---
AWAITING CLARIFICATION FROM MD TO DC OR CONTINUE DUONEB QID. PATIENT IS COMFORT CARE WITH NO SIGNS OF DISTRESS.
--- NOTE | 2023-09-01 02:39 | NUR ---
4MG MORPHINE, 1MG LORAZEPAM AND SCHEDULED ONDANSETRON ADMINISTERED FOR COMFORT. PATIENT REPOSITIONED ONTO RIGHT SIDE.
--- NOTE | 2023-09-01 04:19 | NUR ---
4MG OF MORPHINE FOR TACHYCARDIA AND SLIGHT GASPING
--- NOTE | 2023-09-01 05:20 | NUR ---
PATIENT ASHLIE APPEARS COMFORTABLE. REPOSITIONED AND "FLOATED" ON PILLOWS
--- NOTE | 2023-09-01 07:20 | NUR ---
ROUNDING WITH BAND HEAD SAW OPERATOR RN, PATIENT IS NOTE RESPONSIVE TO TOUCH AND VOICE, SHE IS RESTING QUIETLY IN BED, NO DISTRESS NOTED. SHE IS IN A RELAXED POSITION, NO GRIMACE OR RESTLESSNESS.
--- NOTE | 2023-09-01 08:20 | NUR ---
PATIENTS SPOUSE CALLED FOR UPDATE, HE SAID HE WILL COME UP THIS AFTERNOON TO VISIT.
--- NOTE | 2023-09-01 09:37 | NUR ---
PATIENT PROVIDED ORAL CARE, SHE DID RESPOND BY CLAMPING HER MOUTH SHUT ON ORAL SPONGE AND NOT LETTING GO, PATIENT RELAXED AFTER A MINUTE AND HER MOUTH CAME OPEN, SPONGE WAS THEN RETRIEVED, MOANED AND RAISED HER RIGHT SHOULDER. PATIENT 4/10 ON NONVERBAL PAIN SCALE ADMINISTERED 4MG IV MORPHINE FOR PAIN. PATIENT THEN REPOSITIONED.
[2023-09-01] MEDS ORDERED: ALBUTEROL/IPRATROPIUM 3 ML NEB INH PRN (10:00)
--- NOTE | 2023-09-01 10:10 | NUR ---
PATIENTS HEART RATE AND RESPIRATORY RATE ELEVATED AFTER MORPHINE, PRN ATIVAN ADMINSITERED AT THIS TIME.
--- NOTE | 2023-09-01 12:50 | NUR ---
PATIENT ADMINISTERED MORPHINE FOR INCREASE WORK OF BREATHING AND RR 30/MIN
--- NOTE | 2023-09-01 14:58 | NUR ---
PATIENT REPOSITIONED, NO DISTRESS NOTED. RELAXED POSITION NO GRIMACE AND RESTLESSNESS. HER RR 14/MIN.
--- NOTE | 2023-09-01 16:33 | NUR ---
WENT IN TO WASH PT FACE WITH A WARM WASH CLOTH AND TO BRUSH HER HAIR. PT RESTING WHILE I WAS WASHING HER FACE AND GETTING HER EYES CLEANED UP. I GOT A DRY WASH CLOTH AND MADE SURE HER FACE WAS DRY. I BRUSHED HER HAIR AND MADE SURE I TO EXPLAIN WHAT I WAS DOING TO HER. CALL LIGHT IS WITHIN REACH.
--- NOTE | 2023-09-01 18:08 | NUR ---
PATIENT RESTING QUIETLY IN BED RELAXED POSITION, NO DISTRESS, PATIENT REPOSITIONED AT THIS TIME.
--- NOTE | 2023-09-01 18:28 | NUR ---
PATIENT CHANGED OF BM MEDIUM PASTE, PATIENT CHANGED, CLEANED REPOSITIONED, WITH NEW PURWICK, SHE HAS HAD NO URINE OUT OVER SHIFT. SHE DID OPEN HER EYES AT ONE POINT WHILE STAFF TURNING PATIENT FOR CHANGE/CLEAN. SHE THEN CLOSED HER EYES AND RELAXED, NO DISTRESS AT THIS TIME ASSESSED. HR 94/MIN, RR 13/MIN. ORAL CARE PROVIDED, EYE DROPS ADMINISTERED. SPOUSE CALLED EARLIER THIS AFTERNOON AND SAID "I JUST CANT COME UP THERE AND SIT AGAIN TODAY LIKE YESTURDAY, ITS JUST TOO HARD." THIS RN ASSURED HIM THAT STAFF IS IN REGULAR TO KEEP PATIENT COMFORTABLE AND TALK WITH HER.
--- NOTE | 2023-09-01 20:11 | NUR ---
SBAR REPORT RECEIVED FROM MER HOUSTON. PATIENT ASHLIE RESPONDS TO MODERATE STIMULATION. ORAL CARE, FACIAL CARE, AND REPOSITIONED PERFORMED. PATIENT ASHLIE IS NOTED TO BED NECK AND LIFT RIGHT SHOULDER IN RESPONSE. SLIGHT GRUNTING NOTED. PATIENT GIVEN 4MG MORPHINE AND 1MG ATIVAN.
--- NOTE | 2023-09-01 23:22 | NUR ---
PATIENT ASHLIE APPEARS COMFORTABLE. SHE HAS BEEN REPOSITIONED AND FLOATED ON PILLOWS. HR 101 SPO2 27 RR 14
--- NOTE | 2023-09-02 02:47 | NUR ---
SINUS TACHYCARDIA 120'S. 4MG PRN MORPHINE FOR COMFORT
--- NOTE | 2023-09-02 05:12 | NUR ---
TACHYCARDIA 120'S NOTED. REPOSITION ONTO LEFT SIDE AND 4MG PRN MORPHINE ADMNISTERED. WILL REASSESS AT APPROPRIATE TIME
--- NOTE | 2023-09-02 05:34 | NUR ---
PERISTENT TACHYCARDIA AND SLIGHT GROANING NOTED. PRN MORPHINE 4MG AND 1MG LORAZEPAM ADMINISTERED
--- NOTE | 2023-09-02 08:34 | NUR ---
PATIENT ADMINISTERED MORPHINE PRN FOR TACHYCARDIA AND TACHYPNEA 25/MIN.PATIENT IS RESTING IN BED, REPOSITIONED, NO OUTWARD DISTRESS NOTED.
[2023-09-02] MEDS ORDERED: SCOPOLAMINE 1 MG/3 DAYS PATCH 1 EACH TDSY TD SCH (09:00)
--- NOTE | 2023-09-02 10:08 | NUR ---
ORAL CARE PROVIDED, PATIENT CLOSED MOUTH ON SPONGE TIGHTLY. SHE MADE A GRUNT SOUND WELL. NO OTHER DISTRESS NOTED, SHE RELAXED AFTER CARES, NO FUTHER SOUNDS OR MOVEMENTS. MORPHINE PRN ADMINSTERED BEFORE CARES.
--- NOTE | 2023-09-02 12:22 | NUR ---
PATIENT ADMINISTERED ATIVAN FOR COMFORT, TACHYCARDIA AND TACHYPNEA WITH SMALL APNEIC EPISODES.
--- NOTE | 2023-09-02 13:20 | NUR ---
PATIENT ADMINISTERED PRN MORPHINE FOR AIR HUNGER, TACHYPNEA
--- NOTE | 2023-09-02 20:37 | NUR ---
PATIENT ASHLIE IS NOTED TO BE TACHYCARDIC 120'S AND GROANING WHEN REPOSITIONED. 25MCG FENTANYL PRN AND 1MG LORAZEPAM PRN ADMINISTERED FOR COMFORT AND PAIN. COMFORT CARE. ORAL CARE AND REPOSITIONING PERFORMED. LA PIVS PATENT AND INTACT
--- NOTE | 2023-09-02 23:40 | NUR ---
PATIENT ASHLIE CONTINUES TO HAVE TACHYCARDIA IN 120'S. TACHYPNEA AND GROANING NOTED. 6MG MORPHINE AND 1MG LORAZEPAM ADMINISTERED FOR PAIN AND DISCOMFORT
--- NOTE | 2023-09-03 00:04 | NUR ---
PERISTENT TACHYCARDIA NOTED. 6MG MORPHINE PRN ADMINISTERED FOR DISCOMFORT AND S/S DISTRESS
--- NOTE | 2023-09-03 01:24 | NUR ---
PERSISTENT TACHYCARDIA AND TACHYPNEA. 6MG MORPHINE, 1MG LORAZEPAM, 25MCG FENTANYL PRN ADMINISTERED FOR S/S DISTRESS
--- NOTE | 2023-09-03 01:28 | NUR ---
UPDATED PATIENT ASHLIE'S SPOUSE ALMAZ. HE UNDERSTANDS HER CONDITION AND IS AGREEABLE TO COMFORT CARE PLAN. ALMAZ STATED THAT HE HOPES THAT ASHLIE WOULD "GO TONIGHT" AND EXPRESSED THAT HE FELT LIKE SHE WOULD BE "AT [place]" ONCE SHE PASSES AWAY.
--- NOTE | 2023-09-03 01:41 | NUR ---
PERSISTENT TACHYCARDIA, PATIENT APPEARS UNCOMFORTABLE. SPO2 32%. WILL ADMINISTER PRN MEDS APPROPRIATE.
--- NOTE | 2023-09-03 02:11 | NUR ---
PATIENT ASHLIE CONTINUES TO BE TACHYCARDIC. SPO2 31%. 6MG MORPHINE ADMINISTRED FOR S/S OF DISTRESS
--- NOTE | 2023-09-03 06:30 | NUR ---
PATIENT AT 0608. SHE DID NOT APPEAR TO BE IN DISTRESS AND THIS RN WAS AT HER BEDSIDE AT [facility]. MD AVALOS NOTIFIED. LEFT MESSAGE ON SON SHEYLA'S VM TO CALL HOSPITAL BACK REGARDING PATIENT.
--- NOTE | 2023-09-03 06:58 | NUR ---
CALLED TO ASK THAT WE CALL [facility]. TALKED OF THEIR LIFE TOGETHER, SHARED MEMORIES, EXPRESSED ACCEPTANCE, [employer]. I PROVIDED ASSURANCE, WILL CALL WHEN BODY IS RELEASED.
--- NOTE | 2023-09-03 08:09 | NUR ---
CALLED [facility] AT 0722 AND SPOKE WITH ALMAZ WHO INDICATED BRANDYN WOULD RESPOND SOON POSSIBLE. BRANDYN ARRIVED [phone]. [facility] DEPARTED FACILITY 0810. ALL BELONGINGS HAD BEEN PREVIOUSLY REMOVED, PT WAS NOT WEARING ANY JEWELRY. ESCORTED BRANDYN TO AND FROM ROOM AND ASSISTED WITH TRANSFER OF PT TO HOME COT.
== END 2023-09-03 06:08 | DRG 64 ==
LOC: ED 16:42 → CCU 19:46
PROVIDERS: Emergency Medicine; Family Medicine; ADMIT Family Medicine; ATTEND Family Medicine
PROC: 4A033R1 Measurement of Arterial Saturation, Peripheral, Percutaneous Approach (ICD-10-PCS; principal; 2023-08-26)
PROC: 5A09357 Assistance with Respiratory Ventilation, Less than 24 Consecutive Hours, Continuous Positive Airway Pressure (ICD-10-PCS; 2023-08-26)
PROC: 0T9B70Z Drainage of Bladder with Drainage Device, Via Natural or Artificial Opening (ICD-10-PCS; 2023-08-26)
DX: I63.511 Cerebral infarction due to unspecified occlusion or stenosis of right middle cerebral artery (principal); J69.0 Pneumonitis due to inhalation of food and vomit; J96.01 Acute respiratory failure with hypoxia; G81.04 Flaccid hemiplegia affecting left nondominant side; Z66 Do not resuscitate; Z51.5 Encounter for palliative care; I10 Essential (primary) hypertension; M79.7 Fibromyalgia; H16.209 Unspecified keratoconjunctivitis, unspecified eye; M16.0 Bilateral primary osteoarthritis of hip; E87.6 Hypokalemia; R29.6 Repeated falls; F39 Unspecified mood [affective] disorder; I77.810 Thoracic aortic ectasia; E83.42 Hypomagnesemia; A60.00 Herpesviral infection of urogenital system, unspecified; R29.713 NIHSS score 13; I44.0 Atrioventricular block, first degree; Z91.81 History of falling; Z86.73 Personal history of transient ischemic attack (TIA), and cerebral infarction without residual deficits; Z98.890 Other specified postprocedural states; Z90.89 Acquired absence of other organs; Z98.1 Arthrodesis status; Z90.710 Acquired absence of both cervix and uterus; Z88.8 Allergy status to other drugs, medicaments and biological substances; Z88.5 Allergy status to narcotic agent; Z79.899 Other long term (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; Z79.2 Long term (current) use of antibiotics; Z99.89 Dependence on other enabling machines and devices
CPT/HCPCS: 36415; 36600; 51702; 70450; 70496; 70498; 70551; 71045; 71250; 71260; 80048; 80053; 80061; 81003; 82803; 83036; 83605; 83735; 83880; 84100; 84443; 84484; 85025; 85379; 85610; 85730; 87040; 87502; 92526; 92610; 93005; 93010; 93306; 94640; 94660; 94799; 97112; 97163; 97530; 97535; 99285-25; A9270; J0131; J0360; J0780; J1650; J1885; J2060; J2270; J2405; J2543; J3010; J3475; J3480; J3490; J7030; J7060; J7121; Q9967; U0002